=== PATIENT | male | born 1960 | race Caucasian/White ===

== ENCOUNTER 2016-06-13 14:03 | Inpatient (IN) ==
[2016-06-13] MEDS ORDERED: Ketorolac 30 MG/ML VIAL IV ONE (14:55)
[2016-06-13] MEDS ORDERED: Ondansetron 4 MG/2 ML VIAL IV ONE ×2 (14:55→16:20)
[2016-06-13] MEDS ORDERED: 0.9 % Sodium Chloride 1,000 ML IV SCH (15:00)
--- NOTE | 2016-06-13 15:35 | Emergency Department Note ---
Disposition Clinical Impression: Diverticulitis Qualifiers: Diverticulitis site: large intestine Diverticulitis bleeding: without bleeding Diverticulitis complication: with perforation Qualified Code(s): K57.20 - Diverticulitis of large intestine with perforation and abscess without bleeding Disposition: Admitted As Inpatient Condition: Fair Time of Disposition: 18:11 General Adult HPI - General Chief complaint: ED Urogenital-Male Stated complaint: possibe kidney stone Time Seen by Provider: 06/13/16 14:41 Source: patient Limitations: no limitations Nursing Notes Reviewed: Yes Vital Signs Reviewed: Yes - History of Present Illness HPI Narrative: Patient is a 56-year-old male who presents to [facility] ED with a chief complaint of right-sided flank and right lower quadrant abdominal pain that radiates into his groin. Also has some generalized tenderness. States the pain started last night and has weakness worsened throughout the day. Patient has had nausea and vomiting with this. Tactile fevers and chills. He has had prior kidney stones and diverticulitis. Has required prior surgery to remove the kidney stone several years ago. Past medical history of hypertension and hyperlipidemia. Patient takes lisinopril and fish oil. Onset (ago): day(s) Location: abdomen Radiation: flank Pain Severity: severe Pain Scale: 8 Quality: aching, sharp Consistency: constant, Worsening Improves with: nothing Worsens with: nothing Associated symptoms: Reports: fever/chills, malaise, nausea/vomiting. Denies: chest pain, cough, shortness of breath Treatments Prior to Arrival: none - Related Data Home Medications Medication Instructions Recorded Confirmed Lisinopril/Hydrochlorothiazide 1 each PO DAILY 03/25/15 06/13/16 [Zestoretic 20-25 mg Tablet] Amlodipine [Norvasc] 5 mg PO DAILY 06/13/16 06/13/16 Gabapentin [Neurontin] 300 mg PO BID 06/13/16 06/13/16 HYDROcodone/Acet 5/325 mg [[place] 1 tab PO TID 06/13/16 06/13/16 5-325 mg] Royal-3S/Dha/Epa/Fish Oil [Fish 1 each PO DAILY 06/13/16 06/13/16 Oil 1,200 mg Softgel] Psyllium Husk [Metamucil] 0.52 gm PO 2XW 06/13/16 06/13/16 Allergies Allergy/AdvReac Type Severity Reaction Status Date / Time No Known Allergies Allergy Verified 03/25/15 15:38 All systems ED: reviewed and negative except as stated. Past Medical History - Past Medical History Attestation: Yes The following information was validated with the patient. Source: patient Medical history: Reports: hypertension Surgical history: Reports: no surgical history Psychiatric history: Reports: no psych history - Social History Smoking Status: Heavy tobacco smoker Smokeless Tobacco Status: No Alcohol use: Reports: occasionally Drug use: Reports: none Physical Exam - General Limitations: no limitations General appearance: alert, in no apparent distress - Head Head exam: atraumatic, normocephalic, normal inspection - Eye Eye exam: Present: normal appearance, PERRL, EOMI - ENT ENT exam: normal exam, normal oropharynx, mucous membranes moist - Neck Neck exam: Present: normal inspection, full ROM, trachea midline - Chest Chest inspection: Present: normal inspection, symmetric chest wall rise - Respiratory Respiratory exam: Present: normal lung sounds bilaterally - Cardiovascular Cardiovascular exam: Present: normal rhythm, tachycardia - Abdominal Exam Abdominal exam: Present: distention, hyperactive bowel sounds Abdominal tenderness: Present: RLQ, diffuse, severe - Extremities Exam Extremities exam: Present: normal inspection, full ROM. Absent: tenderness, pedal edema - Back Exam Back exam: Present: normal inspection, full ROM. Absent: tenderness - Neurological Exam Neurological exam: Present: alert, oriented X3 - Psychiatric Psychiatric exam: Present: normal affect, normal mood - Skin Skin exam: Present: warm, dry, intact, normal color Course Course Narrative: Patient seen and examined. Right-sided abdominal pain. Patient is very tender all over. Concern for impacted stone versus appendicitis versus some other bowel pathology. IV fluids, pain medication, basic labs, CT abdomen and pelvis ordered. - Reevaluation(s) Reevaluation #1: CT shows acute sigmoid diverticulitis with perforation. Started ciprofloxacin. I spoke with surgery Dr. Jeffrey who has accepted patient for admission. Second liter of fluids ordered. Time: 16:43 Vital Signs Temperature 97.9 F 06/13/16 14:27 Pulse Rate 139 06/13/16 14:27 Respiratory Rate 22 06/13/16 14:27 Blood Pressure 154/92 06/13/16 14:27 O2 Sat by Pulse Oximetry 98 06/13/16 14:27 Temperature 97.9 F 06/13/16 14:27 Pulse Rate 133 06/13/16 18:08 Respiratory Rate 18 06/13/16 18:20 Blood Pressure 104/68 06/13/16 18:20 O2 Sat by Pulse Oximetry 96 06/13/16 18:08 Oxygen Delivery Oxygen Delivery Room Air Medical Decision Making - MDM Narrative Medical decision making narrative: I examined this patient and my medical decision-making was reviewed with the PARKING METER MECHANIC/PA/Advanced Practice Nurse/Resident Physician. I agree with the documented findings, disposition and treatment plan as described except to the extent set forth below. Patient was seen and evaluated by Dr. Fernández and myself , I agree with her evaluation and management plan, supervise care the patient's stay. Patient is a history of kidney stones and flank pain. He said the stones removed in the past with lithotripsy. No fevers here he is tachycardic however burning labs on him fluids given some for pain and nausea his CT of his abdomen and laboratory work. He is in agreement with this plan. He does not appear septic. 1613 hrs.: Radiology called over and there reading diverticulitis on this CAT scan with perforation. Her going to speech surgery waiting on his labs to come back and then will talk with surgery about antibiotic best choice. In their preference. Patient's agreement with the plan. Abdomen/Pelvis CT 06/13/16 15:36 IMPRESSION: Evidence acute sigmoid colonic diverticulitis with exuberant adjacent inflammatory changes as well as evidence of perforation and there is a small to moderate amount of extraluminal gas throughout the abdomen. Findings were discussed with Lisa Fernando at 4:09 pm on 06/13/2016. D/ / Tanika Rojo Cha, MD / Tanika Rojo Cha, MD Interpreting Provider: Tanika Rojo Cha, MD 1700 hrs.: Surgeries come down and seen the patient. Discussing going to surgery versus admission and then surgery that is available they will determine if a surgical suite is ready for him now or he will go the floor first after getting IV antibiotics and then to surgery. Patient's in agreement with this plan. Patient's critical care time x-ray separately billable procedures is 30 minutes. - Medical Records Medical records reviewed: Yes I reviewed the patient's medical records. - Lab Data Lab results reviewed: Yes I reviewed the patient's lab results. Result diagrams: 06/13/16 16:14 06/13/16 16:14 Lab Results 06/13/16 06/13/16 06/13/16 Range/Units 15:35 16:14 16:14 WBC 11.8 H (4.3-11.1) K/mcL RBC 5.76 H (4.19-5.50) M/mcL Hgb 17.0 H (12.9-16.9) g/dL Hct 49.3 (37.5-50.1) % MCV 85.6 (83.0-100.0) fL MCH 29.5 (28.0-33.3) pg MCHC 34.5 (31.6-35.5) g/dL RDW 12.5 (11.5-14.5) % Plt Count 153 (140-400) K/mcL MPV 9.9 (9.4-12.4) fL Immature Gran % 0.3 (0-4) % Seg Neutrophils % 89.9 % Lymphocytes % 3.6 % Monocytes % 5.9 % Eosinophils % 0.0 % Basophils % 0.3 % Neutrophils # 10.6 H (1.6-8.9) K/mcL Lymphocytes # 0.4 L (0.6-4.6) K/mcL Monocytes # 0.7 (0.0-1.3) K/mcL Eosinophils # 0.0 (0.0-0.6) K/mcL Basophils # 0.0 (0.0-0.2) K/mcL Immature Plt Fraction 5.1 (1.1-6.1) % PT (9.4-12.1) Seconds INR APTT (26.0-36.0) Seconds Sodium 136 (136-145) mEq/L Potassium 4.0 (3.5-4.5) mEq/L Chloride 105 (98-109) mEq/L Carbon Dioxide 19 (19-29) mEq/L BUN 13 (8-26) mg/dL Creatinine 0.85 (0.72-1.25) mg/dL Est GFR ( Amer) > 60 (> 60) Est GFR (Non-Af Amer) > 60 (> 60) BUN/Creatinine Ratio 15 (6-26) Glucose 93 (70-99) mg/dL POC Glucose 100 H (58-89) Calculated Osmolality 282 (280-300) Calcium 8.4 L (8.6-10.8) mg/dL Urine Color (Yellow) Urine Clarity (Clear) Urine pH (5.0-8.0) pH Units Ur Specific [place] (1.010-1.025) Urine Protein (Neg-Trace) mg/dL Urine Glucose (UA) (Normal) mg/dL Urine Ketones (Negative) mg/dL Urine Blood (Negative) Urine Nitrite (Negative) Urine Bilirubin (Negative) Urine Urobilinogen (Normal) mg/dL Ur Leukocyte Esterase (Negative) Urine Microscopic RBC (0-3) per hpf Urine Microscopic WBC (0-3) per hpf Ur Squamous Epith Cells (None-Few) per lpf Urine Bacteria (None-Few) per hpf Hyaline Casts (None-Few) per lpf Ur Culture Indicated? (NO) 06/13/16 06/13/16 Range/Units 16:14 16:32 WBC (4.3-11.1) K/mcL RBC (4.19-5.50) M/mcL Hgb (12.9-16.9) g/dL Hct (37.5-50.1) % MCV (83.0-100.0) fL MCH (28.0-33.3) pg MCHC (31.6-35.5) g/dL RDW (11.5-14.5) % Plt Count (140-400) K/mcL MPV (9.4-12.4) fL Immature Gran % (0-4) % Seg Neutrophils % % Lymphocytes % % Monocytes % % Eosinophils % % Basophils % % Neutrophils # (1.6-8.9) K/mcL Lymphocytes # (0.6-4.6) K/mcL Monocytes # (0.0-1.3) K/mcL Eosinophils # (0.0-0.6) K/mcL Basophils # (0.0-0.2) K/mcL Immature Plt Fraction (1.1-6.1) % PT 13.9 H (9.4-12.1) Seconds INR 1.3 APTT 32.3 (26.0-36.0) Seconds Sodium (136-145) mEq/L Potassium (3.5-4.5) mEq/L Chloride (98-109) mEq/L Carbon Dioxide (19-29) mEq/L BUN (8-26) mg/dL Creatinine (0.72-1.25) mg/dL Est GFR ( Amer) (> 60) Est GFR (Non-Af Amer) (> 60) BUN/Creatinine Ratio (6-26) Glucose (70-99) mg/dL POC Glucose (58-89) Calculated Osmolality (280-300) Calcium (8.6-10.8) mg/dL Urine Color Yellow (Yellow) Urine Clarity Clear (Clear) Urine pH 6.0 (5.0-8.0) pH Units Ur Specific [place] 1.021 (1.010-1.025) Urine Protein Negative (Neg-Trace) mg/dL Urine Glucose (UA) Normal (Normal) mg/dL Urine Ketones Negative (Negative) mg/dL Urine Blood Negative (Negative) Urine Nitrite Negative (Negative) Urine Bilirubin Negative (Negative) Urine Urobilinogen Normal (Normal) mg/dL Ur Leukocyte Esterase Small H (Negative) Urine Microscopic RBC 3-5 H (0-3) per hpf Urine Microscopic WBC 0-3 (0-3) per hpf Ur Squamous Epith Cells Many H (None-Few) per lpf Urine Bacteria None Seen (None-Few) per hpf Hyaline Casts Few (None-Few) per lpf Ur Culture Indicated? YES A (NO) - Radiology Data Radiology results reviewed: Yes I reviewed the patient's radiology results. Abdomen/Pelvis CT 06/13/16 15:36 IMPRESSION: Evidence acute sigmoid colonic diverticulitis with exuberant adjacent inflammatory changes as well as evidence of perforation and there is a small to moderate amount of extraluminal gas throughout the abdomen. Findings were discussed with Lisa Fernando at 4:09 pm on 06/13/2016. D/ / Tanika Rojo Cha, MD / Tanika Rojo Cha, MD Interpreting Provider: Tanika Rojo Cha, MD - EKG Data EKG #1 EKG attestation: Yes I reviewed and interpreted this EKG. EKG results narrative: EKG done at 1804 shows normal sinus tachycardia with a rate of [address] elevation or depression. Q-wave present in lead 3. Normal axis.
[2016-06-13] MEDS ORDERED: *HR* HYDROmorphone (PF) 1 MG/ML SYRINGE IV ONE (16:20)
[2016-06-13 16:24] LABS: Basophils % 0.3 %; Hematocrit 49.3 % (37.5-50.1); Immature Granulocytes % 0.3 % (0-4); Immature Platelets 5.1 % (1.1-6.1); Lymphocytes # 0.4 K/mcL (0.6-4.6); Lymphocytes % 3.6 %; Mean Corpuscular HGB Conc 34.5 g/dL (31.6-35.5); Mean Corpuscular Hemoglobin 29.5 pg (28.0-33.3); Mean Corpuscular Volume 85.6 fL (83.0-100.0); Mean Platelet Volume 9.9 fL (9.4-12.4); Monocytes # 0.7 K/mcL (0.0-1.3); Monocytes % 5.9 %; Neutrophils # 10.6 K/mcL (1.6-8.9); Platelet Count 153 K/mcL (140-400); Red Blood Count 5.76 M/mcL (4.19-5.50); Red Cell Distribution Width 12.5 % (11.5-14.5); Segmented Neutrophils % 89.9 %
[2016-06-13 16:34] LABS: INR 1.3; Prothrombin Time 13.9 Seconds (9.4-12.1)
[2016-06-13 16:37] LABS: Activated Partial Thrombo Time 32.3 Seconds (26.0-36.0)
[2016-06-13 16:42] LABS: BUN/Creatinine Ratio 15 (6-26); Blood Urea Nitrogen 13 mg/dL (8-26); Calcium 8.4 mg/dL (8.6-10.8); Carbon Dioxide 19 mEq/L (19-29); Chloride 105 mEq/L (98-109); Glucose 93 mg/dL (70-99); Osmolality,Calculated 282 (280-300); Sodium 136 mEq/L (136-145); eGFR For African Americans > 60 (> 60); eGFR For Non-African Americans > 60 (> 60)
[2016-06-13 16:53] LABS: Bilirubin,Urine Negative (Negative); Blood,Urine Negative (Negative); Clarity,Urine Clear (Clear); Color,Urine Yellow (Yellow); Glucose,Urine (UA) Normal (Normal); Ketones,Urine Negative (Negative); Leukocyte Esterase,Urine Small (Negative); Nitrite,Urine Negative (Negative); Protein,Urine Negative (Neg-Trace); Specific Gravity,Urine 1.021 (1.010-1.025); Urobilinogen,Urine Normal (Normal)
[2016-06-13 16:58] LABS: Bacteria,Urine None Seen per hpf (None-Few); Hyaline Casts,Urine Few per lpf (None-Few); Squamous Epithelial Cell,Urine Many per lpf (None-Few); WBC,Urine 0-3 per hpf (0-3)
--- NOTE | 2016-06-13 17:27 | General Surg History&Physical ---
<Harjeet Avalos - Last Filed: 06/13/16 18:17> Date of Encounter: 06/13/16 Time of Encounter: 17:20 Assessment and Plan (1) Perforated diverticulum Current Visit: Yes Status: Acute The assessment and plan as outlined above was discussed with the patient and/or family members who expressed understanding and agreement. All questions were answered. Pt. with acute onset severe abdominal pain in the mid epigastrum, RUQ, RLQ, with associated subjective fevers, nausea, vomiting (x3), chills, diaphoresis. Abd CT revealed: Evidence acute sigmoid colonic diverticulitis with exuberant adjacent inflammatory changes as well as evidence of perforation and there is a small to moderate amount of extraluminal gas throughout the abdomen. Patient was informed about his options, either go to the OR now for a colostomy or try antibiotics and bowel rest. He chose to not go to the Operating Room right now and try antibiotics and bowel rest initially to see if it will resolve. Plan -NPO -IVF -pain control -zosyn -GI and DVT prophylaxis (2) Hypertension Current Visit: No Status: Chronic Hx of HTN. Currently normotensive Hold home meds Qualifiers: Hypertension type: essential hypertension Qualified Code(s): I10 - Essential (primary) hypertension (3) Tobacco abuse Current Visit: No Status: Chronic He has a 60pk year smoking history. He quit 10 years ago, but recently began vaping. (4) DVT prophylaxis Current Visit: Yes Status: Acute Heparin subq 5000 BID History of Present Illness Chief complaint: abdominal pain HPI: Mr. Sanchez is a 56 year old male presented to the ED this afternoon with abdominal pain. He has got a past medical history of hypertension, hyperlipidemia, and nephrolithiasis, and diverticulitis. Last evening he began have sharp epigastric and right flank pain. The sharp pain lasted just a few moments, but continued intermittently worsening in duration and severity. When ambulating the pain was unbearable. The pain radiated down into suprapubic region. He rated the pain 8/10. He has had nausea since he 1st felt the abdominal pain last night and he has vomited 3 times. He was unable to sleep as the pain was too intense. He took 3 ibuprofen to help with the pain but it did not relieve his pain. This morning the pain was so bad his brought him to the ED. He also reports subjective fevers, emesis, nausea, diaphoresis, chills, and lightheadedness.'s last meal was last evening at approximately 5 PM. He has been unable to eat since then, and has no appetite. His last bowel movement was yesterday at 11 AM, which was solid. In the ED he was started on a normal saline infusion of 125 ml/hr, ciprofloxacin 400 mg IV piggyback, and pain medication. Past Med Surg Social Fam HX - Past Medical History Medical history: hypertension Psychiatric history: no psych history - Past Surgical History Surgical History: no surgical history - Social History Smoking Status: Heavy tobacco smoker Smokeless Tobacco Status: No Alcohol use: occasionally Drug use: none Medications and Allergies Lisinopril/Hydrochlorothiazide [Zestoretic 20-25 mg Tablet] 1 each PO DAILY [History] Amlodipine [Norvasc] 5 mg PO DAILY 06/13/16 [History] Gabapentin [Neurontin] 300 mg PO BID 06/13/16 [History] HYDROcodone/Acet 5/325 mg [[place] 5-325 mg] 1 tab PO TID 06/13/16 [History] [place]-3S/Dha/Epa/Fish Oil [Fish Oil 1,200 mg Softgel] 1 each PO DAILY 06/13/16 [ History] Psyllium Husk [Metamucil] 0.52 gm PO 2XW 06/13/16 [History] Allergies No Known Allergies Allergy (Verified 03/25/15 15:38) Review of Systems All systems PM: A 10-system review of systems was performed and is negative for pertinent findings except as documented above in the HPI. - Constitutional anorexia, chills, excessive sweating, fever(s) - EENT Nose, mouth and throat: dry mouth - Cardiovascular rapid heart rate - Respiratory no cough, no dyspnea, no hemoptysis - Gastrointestinal bloating, nausea, vomiting, no hematochezia, no melena - Neurological dizziness, weakness, no confusion, no loss of vision, no memory loss, no numbness, no paresthesias, no syncope General Surgery Exam Initial Vital Signs Temp Pulse Resp BP Pulse Ox 97.9 F 139 22 154/92 98 06/13/16 14:27 06/13/16 14:27 06/13/16 14:27 06/13/16 14:27 06/13/16 14:27 - General physical appearance well developed, well nourished, moderate distress, moderate pain - Eyes normal ocular movement - ENT dry mucosa - Respiratory normal expansion, normal respiratory effort, clear to auscultation - Cardiovascular Cardiovascular exam: Present: tachycardia, regular rhythm, no murmurs/rubs/ gallops - Abdomen Abdomen general surgery: Present: bowel sounds present, tender, guarding, rigid , peritoneal Abdominal Tenderness: Present: epigastic, RUQ, RLQ - Integumentary Integumentary general surgery: Present: warm and dry - Neurologic Present: CN 2-12 grossly intact, normal sensation - Psychiatric Psychiatric general surgery: Present: A&Ox3, appropriate Results - Labs 06/13/16 16:14 06/13/16 16:14 Abnormal lab results WBC 11.8 K/mcL (4.3-11.1) H 06/13/16 16:14 RBC 5.76 M/mcL (4.19-5.50) H 06/13/16 16:14 Hgb 17.0 g/dL (12.9-16.9) H 06/13/16 16:14 Neutrophils # 10.6 K/mcL (1.6-8.9) H 06/13/16 16:14 Lymphocytes # 0.4 K/mcL (0.6-4.6) L 06/13/16 16:14 PT 13.9 Seconds (9.4-12.1) H 06/13/16 16:14 POC Glucose 100 (58-89) H 06/13/16 15:35 Calcium 8.4 mg/dL (8.6-10.8) L 06/13/16 16:14 Ur Leukocyte Esterase Small (Negative) H 06/13/16 16:32 Urine Microscopic RBC 3-5 per hpf (0-3) H 06/13/16 16:32 Ur Squamous Epith Cells Many per lpf (None-Few) H 06/13/16 16:32 Ur Culture Indicated? YES (NO) A 06/13/16 16:32 Diabetes panel 06/13/16 Range/Units 16:14 Sodium 136 (136-145) mEq/L Potassium 4.0 (3.5-4.5) mEq/L Chloride 105 (98-109) mEq/L Carbon Dioxide 19 (19-29) mEq/L BUN 13 (8-26) mg/dL Creatinine 0.85 (0.72-1.25) mg/dL Glucose 93 (70-99) mg/dL Calcium 8.4 L (8.6-10.8) mg/dL Calcium panel 06/13/16 Range/Units 16:14 Calcium 8.4 L (8.6-10.8) mg/dL Pituitary panel 06/13/16 Range/Units 16:14 Sodium 136 (136-145) mEq/L Potassium 4.0 (3.5-4.5) mEq/L Chloride 105 (98-109) mEq/L Carbon Dioxide 19 (19-29) mEq/L BUN 13 (8-26) mg/dL Creatinine 0.85 (0.72-1.25) mg/dL Glucose 93 (70-99) mg/dL Calcium 8.4 L (8.6-10.8) mg/dL Adrenal panel 06/13/16 Range/Units 16:14 Sodium 136 (136-145) mEq/L Potassium 4.0 (3.5-4.5) mEq/L Chloride 105 (98-109) mEq/L Carbon Dioxide 19 (19-29) mEq/L BUN 13 (8-26) mg/dL Creatinine 0.85 (0.72-1.25) mg/dL Glucose 93 (70-99) mg/dL Calcium 8.4 L (8.6-10.8) mg/dL All other labs normal. <Loren Jeffrey - Last Filed: 06/13/16 18:45> Assessment and Plan (1) Perforation of sigmoid colon due to diverticulitis Current Visit: Yes Status: Acute discussed with patient and his that although he is having a decent amount of pain his abdomen is still soft when initially palpated. Discussed that if during this admission he would require surgery for diverticulitis he would undergo a titus, explained what that was. Discussed that we will try to get him to resolve this episode of diverticulitis without surgery with conservative measures. He will remain NPO, pain controlled with prn dilaudid, antiemetics if needed, serial abdominal exams, trend labs, antibtiotics. The assessment and plan as outlined above was discussed with the patient and/or family members who expressed understanding and agreement. All questions were answered. (2) Leukocytosis Current Visit: Yes Status: Acute received abx in ED, will treat with zosyn trend wbc The assessment and plan as outlined above was discussed with the patient and/or family members who expressed understanding and agreement. All questions were answered. Qualifiers: Leukocytosis type: unspecified Qualified Code(s): D72.829 - Elevated white blood cell count, unspecified (3) DVT prophylaxis Current Visit: Yes Status: Acute The assessment and plan as outlined above was discussed with the patient and/or family members who expressed understanding and agreement. All questions were answered. (4) Hypertension Current Visit: No Status: Chronic The assessment and plan as outlined above was discussed with the patient and/or family members who expressed understanding and agreement. All questions were answered. Qualifiers: Hypertension type: essential hypertension Qualified Code(s): I10 - Essential (primary) hypertension (5) Tobacco abuse Current Visit: No Status: Chronic The assessment and plan as outlined above was discussed with the patient and/or family members who expressed understanding and agreement. All questions were answered. (6) Tachycardia Current Visit: Yes Status: Acute The assessment and plan as outlined above was discussed with the patient and/or family members who expressed understanding and agreement. All questions were answered. will give another liter NS in ED continuous IVF's monitor (7) Dysuria Current Visit: Yes Status: Acute The assessment and plan as outlined above was discussed with the patient and/or family members who expressed understanding and agreement. All questions were answered. due to diverticulitis continue metz for strict I/os History of Present Illness HPI: Mr. Sanchez is a 56 year old male who began having right sided which radiated across the lower abdomen to the left side sharp stabbing abdominal pain yesterday evening around 10 PM. His last bowel movement was yesterday. He denies any diarrhea. The pain is progressively gotten worse which is what prompted him to present to the ER. Patient was previously had kidney stones and he thought that this is the same thing. He denies any fevers chills or night sweats. He has had nausea and vomiting. He is complaining of dysuria. CT scan shows perforated diverticulitis with a small amount of free intraperitoneal air. White count is 11.3. He is tachycardic in the 130s but has only received 1 L from the ER. Metz catheters has been placed Past Med Surg Social Fam HX - Past Medical History Source: patient Medical history: kidney stones, other ( chronic pain, hx colon polyps) - Past Surgical History Surgical History: other (lithotrypsy, colonscopy ~2 yrs ago) - Social History Smoking Status: Heavy tobacco smoker Smokeless Tobacco Status: No - Family History Grandmother History Unknown: Yes Review of Systems All systems PM: A 10-system review of systems was performed and is negative for pertinent findings except as documented above in the HPI. General Surgery Exam Initial Vital Signs Temp Pulse Resp BP Pulse Ox 97.9 F 139 22 154/92 98 06/13/16 14:27 06/13/16 14:27 06/13/16 14:27 06/13/16 14:27 06/13/16 14:27 - General physical appearance well developed, well nourished, moderate distress, moderate pain, obese - Eyes PERRL, normal ocular movement - ENT dry mucosa, atraumatic, normocephalic - Neck trachea midline - Respiratory normal expansion, clear to auscultation - Cardiovascular Cardiovascular exam: Present: tachycardia, regular rhythm, no murmurs/rubs/ gallops - Abdomen Abdomen general surgery: Present: soft, guarding (voluntary). Absent: bowel sounds present, rigid, peritoneal Abdominal Tenderness: Present: RLQ, LLQ - Incision Incision: Present: clean and dry, intact - Genitourinary Present: other (metz with dark urine) - Integumentary Integumentary general surgery: Present: warm and dry, no abnormal pigmentation. Absent: diaphoresis - Neurologic Present: CN 2-12 grossly intact - Psychiatric Psychiatric general surgery: Present: A&Ox3, appropriate, speech is normal Results - Labs 06/13/16 16:14 06/13/16 16:14 Short CBC 06/13/16 Range/Units 16:14 WBC 11.8 H (4.3-11.1) K/mcL Hgb 17.0 H (12.9-16.9) g/dL Hct 49.3 (37.5-50.1) % Plt Count 153 (140-400) K/mcL Neutrophils # 10.6 H (1.6-8.9) K/mcL BMP 06/13/16 Range/Units 16:14 Sodium 136 (136-145) mEq/L Potassium 4.0 (3.5-4.5) mEq/L Chloride 105 (98-109) mEq/L Carbon Dioxide 19 (19-29) mEq/L BUN 13 (8-26) mg/dL Creatinine 0.85 (0.72-1.25) mg/dL Glucose 93 (70-99) mg/dL Calcium 8.4 L (8.6-10.8) mg/dL Urine 06/13/16 Range/Units 16:32 Urine Color Yellow (Yellow) Urine Clarity Clear (Clear) Urine pH 6.0 (5.0-8.0) pH Units Ur Specific [place] 1.021 (1.010-1.025) Urine Protein Negative (Neg-Trace) mg/dL Urine Glucose (UA) Normal (Normal) mg/dL Vital Signs Temp Pulse Resp BP Pulse Ox 06/13/16 18:20 18 104/68 06/13/16 18:08 133 16 114/85 96 06/13/16 16:33 122 16 108/81 98 06/13/16 14:27 97.9 F 139 22 154/92 98 Intake and Output 06/13/16 06/13/16 06/13/16 07:59 15:59 23:59 Intake Total 1200 / 1200 Balance 1200 / 1200 Intake: IV Fluids 1200 / 1200 0.9 % Sodium Chloride 1, 1000 / 1000 000 ML @ 125 mls/hr IV CONT [facility] Rx#:[id number] Cipro 400 MG/200 ML 400 200 / 200 mg In 200 ml @ 200 mls/hr IVPB Q12HR [facility] Rx#: [id number] Other: Weight 99.79 kg Patient Weight 06/13/16 23:59 Weight 99.79 kg - Imaging CT scan - abdomen: report reviewed, image reviewed CT scan - pelvis: report reviewed, image reviewed - Attending Attestation I examined this patient and my medical decision-making was reviewed with the BLASTING MINER/PA/Advanced Practice Nurse/Resident Physician. I agree with the documented findings, disposition and treatment plan as described except to the extent set forth below.
[2016-06-13] MEDS ORDERED: Naloxone 0.4 MG/ML INJ IVP PRN ×2 (17:39→18:55)
[2016-06-13] MEDS ORDERED: Ondansetron 4 MG/2 ML VIAL IVP PRN (17:39)
[2016-06-13] MEDS ORDERED: *HR* HYDROmorphone (PF) 1 MG/ML SYRINGE IVP PRN ×2 (17:39→18:09)
[2016-06-13] MEDS ORDERED: Pantoprazole 40 MG VIAL IVP SCH (17:45)
[2016-06-13] MEDS ORDERED: 0.9 % Sodium Chloride 1,000 ML IVC ONE ×2 (18:01→22:20)
[2016-06-13] MEDS ORDERED: Acetaminophen IV 1,000 MG/100 ML INFUS..BTL IVPB PRN (18:15)
[2016-06-13] MEDS: 0.9 % Sodium Chloride 1,000 ML IV SCH (18:30)
[2016-06-13] MEDS ORDERED: *HR* Promethazine 25 MG/ML VIAL IVP PRN (18:55)
[2016-06-13] MEDS ORDERED: *HR* Metoprolol 5 MG/5 ML VIAL IVP PRN (18:55)
[2016-06-13] MEDS: *HR* HYDROmorphone (PF) 1 MG/ML SYRINGE IVP PRN (19:18)
[2016-06-13] MEDS: Acetaminophen IV 1,000 MG/100 ML INFUS..BTL IVPB PRN (20:25)
[2016-06-13] MEDS: Piperacillin/Tazobactam 3.375 GM in D5% in Water (Mini-Bag+) 100 ML IVPB SCH (20:51)
[2016-06-13] MEDS: Ipratropium/Albuterol Neb 3 ML IH SCH (21:08)
[2016-06-14] MEDS: *HR* HYDROmorphone (PF) 1 MG/ML SYRINGE IVP PRN ×7 (00:07→21:26)
[2016-06-14] MEDS: Ipratropium/Albuterol Neb 3 ML IH SCH ×4 (03:55→21:21)
[2016-06-14] MEDS ORDERED: 0.9 % Sodium Chloride 500 ML IVC ONE (03:58)
[2016-06-14 05:23] LABS: Basophils % 0.2 %; Hematocrit 43.1 % (37.5-50.1); Immature Granulocytes % 0.6 % (0-4); Lymphocytes # 1.3 K/mcL (0.6-4.6); Lymphocytes % 7.7 %; Mean Corpuscular HGB Conc 34.1 g/dL (31.6-35.5); Mean Corpuscular Hemoglobin 29.4 pg (28.0-33.3); Mean Corpuscular Volume 86.2 fL (83.0-100.0); Mean Platelet Volume 10.6 fL (9.4-12.4); Monocytes # 1.2 K/mcL (0.0-1.3); Monocytes % 6.6 %; Neutrophils # 14.7 K/mcL (1.6-8.9); Platelet Count 153 K/mcL (140-400); Red Cell Distribution Width 12.8 % (11.5-14.5); Segmented Neutrophils % 84.9 %
[2016-06-14 05:24] LABS: INR 1.5; Prothrombin Time 16.6 Seconds (9.4-12.1)
[2016-06-14] MEDS: Piperacillin/Tazobactam 3.375 GM in D5% in Water (Mini-Bag+) 100 ML IVPB SCH ×3 (05:33→21:49)
[2016-06-14 05:42] LABS: BUN/Creatinine Ratio 11 (6-26); Blood Urea Nitrogen 9 mg/dL (8-26); Calcium 7.6 mg/dL (8.6-10.8); Carbon Dioxide 20 mEq/L (19-29); Chloride 106 mEq/L (98-109); Glucose 83 mg/dL (70-99); Magnesium 1.7 mg/dL (1.6-2.6); Osmolality,Calculated 280 (280-300); Phosphorous 2.7 mg/dL (2.3-4.7); Potassium 3.8 mEq/L (3.5-4.5); Sodium 136 mEq/L (136-145); eGFR For African Americans > 60 (> 60); eGFR For Non-African Americans > 60 (> 60)
[2016-06-14] MEDS: *HR* Heparin 5,000 UNIT/ML VIAL SQ SCH ×2 (05:43→18:30)
[2016-06-14 05:48] LABS: Hemoglobin 14.7 g/dL (12.9-16.9)
[2016-06-14] MEDS ORDERED: *HR* Heparin 5,000 UNIT/ML VIAL SQ SCH (06:00)
[2016-06-14] MEDS: Pantoprazole 40 MG VIAL IVP SCH (09:01)
[2016-06-14] MEDS: 0.9 % Sodium Chloride 1,000 ML IV SCH (09:18)
--- NOTE | 2016-06-14 09:51 | General Surgery Progress Note ---
Date of Encounter: 06/14/16 Time of Encounter: 08:00 - Assessment and Plan (1) Perforation of sigmoid colon due to diverticulitis Current Visit: Yes Status: Acute discussed with patient that I am still very concerned about him, he still may require surgery in the future this admission, His HR has decreased with fluid hydration, his UOP is good. He states he think he feels a little better in ~12 hrs time frame but I explained not to expect any big changes for 24 to 36 hrs. No further nausea. His wbc did increase but no bandemia. will continue conservative management currently, may need to re-CT in a day or two, especially if no improvement. continue IVF hydration abx - zosyn pain control antiemetics metz for strict I/O's and dysuria serial abdominal exams (2) Leukocytosis Current Visit: Yes Status: Acute has increased overnight which isnt too unexpected, will monitor, continue Abx Qualifiers: Leukocytosis type: unspecified Qualified Code(s): D72.829 - Elevated white blood cell count, unspecified (3) DVT prophylaxis Current Visit: Yes Status: Acute heparin sq (4) Hypertension Current Visit: No Status: Chronic normotensive, continue to monitor, prn B lucía Qualifiers: Hypertension type: essential hypertension Qualified Code(s): I10 - Essential (primary) hypertension (5) Tobacco abuse Current Visit: No Status: Chronic (6) Tachycardia Current Visit: Yes Status: Acute had decreased with ivf hydration, continue to monitor (7) Dysuria Current Visit: Yes Status: Acute continue metz at this time Subjective Narrative: he is still complaining of RLQ pain, he was sleeping when I entered his room he denies any further nausea or emesis. He states he feels like the pain may be a little improved since last evening. He had flatus this am but no bm Objective Vital Signs - Last 8 Hours Temp Pulse Resp BP Pulse Ox 06/14/16 07:17 99.0 F 115 17 137/86 94 L 06/14/16 03:56 18 98 06/14/16 03:46 98.5 F 120 18 134/83 94 L Intake and Output 06/13/16 06/14/16 06/14/16 23:59 07:59 15:59 Intake Total 698 / 1898 2001 Output Total 300 / 300 975 / 975 Balance 398 / 1598 1027 / 1027 Intake: IV Fluids 698 / 698 2001 / 2001 0.9 % Sodium Chloride 1, 598 / 598 402 / 402 000 ML @ 140 mls/hr IV CONT [facility] Rx#:[id number] 0.9 % Sodium Chloride 1, 1000 / 1000 000 ML @ 3750 mls/hr IVC .Q16M ONE Rx#:[id number] 0.9 % Sodium Chloride 500 500 / 500 ML @ 1875 mls/hr IVC . Q16M ONE Rx#:[id number] Ofirmev 1,000 mg In 100 100 / 100 ml @ 400 mls/hr IVPB Q8HR PRN Rx#:[id number] Zosyn 3.375 GM In 100 / 100 Dextrose 5% (Minibag+) 100 ML 100 ML @ 25 mls/hr IVPB Q8H [facility] Rx#: [id number] Oral 0 / 0 0 / 0 Output: Catheter 300 / 300 975 / 975 Other: Meal NPO Blood Glucose* 88 - General physical appearance well developed, well nourished, moderate distress - Eyes PERRL, normal ocular movement - ENT dry mucosa, atraumatic, normocephalic - Neck Neck exam: trachea midline - Respiratory normal expansion, clear to percussion - Cardiovascular Cardiovascular exam: Present: tachycardia - Abdomen Abdomen: Present: soft (soft LLQ to light palpation, does voluntary guard to deep, most tenderness is RLQ, tenderness LLQ a little less than last night), distended, tender, guarding (voluntary). Absent: bowel sounds present, rigid, peritoneal Abdominal Tenderness: RLQ - Genitourinary other (metz with clear yellow urine) - Integumentary no rash, no growths - Neurologic CN 2-12 grossly intact - Musculoskeletal normal posture - Psychiatric oriented to time, oriented to person, oriented to place, speech is normal - Labs 06/14/16 04:14 06/14/16 04:14 Vital Signs Temp Pulse Resp BP Pulse Ox 06/14/16 07:17 99.0 F 115 17 137/86 94 L 06/14/16 03:56 18 98 06/14/16 03:46 98.5 F 120 18 134/83 94 L 06/14/16 01:07 98.2 F 124 18 118/79 93 L 06/13/16 21:10 18 92 L 06/13/16 19:58 99.0 F 132 18 112/74 93 L 06/13/16 18:20 18 104/68 06/13/16 18:08 133 16 114/85 96 06/13/16 16:33 122 16 108/81 98 06/13/16 14:27 97.9 F 139 22 154/92 98 Intake and Output 06/13/16 06/14/16 06/14/16 23:59 07:59 15:59 Intake Total 189 / 1892001 Output Total 300 / 300 975 / 975 Balance 1598 / 1598 1027 / 1027 Intake: IV Fluids 1897 / 1892001 0.9 % Sodium Chloride 1, 1598 / 1598 402 / 402 000 ML @ 140 mls/hr IV CONT [facility] Rx#:[id number] 0.9 % Sodium Chloride 1, 1000 / 1000 000 ML @ 3750 mls/hr IVC .Q16M ONE Rx#:[id number] 0.9 % Sodium Chloride 500 500 / 500 ML @ 1875 mls/hr IVC . Q16M ONE Rx#:[id number] Ofirmev 1,000 mg In 100 100 / 100 ml @ 400 mls/hr IVPB Q8HR PRN Rx#:[id number] Cipro 400 MG/200 ML 400 200 / 200 mg In 200 ml @ 200 mls/hr IVPB Q12HR [facility] Rx#: [id number] Zosyn 3.375 GM In 100 / 100 Dextrose 5% (Minibag+) 100 ML 100 ML @ 25 mls/hr IVPB Q8H [facility] Rx#: [id number] Oral 0 / 0 0 / 0 Output: Catheter 300 / 300 975 / 975 Other: Meal NPO Blood Glucose* 88 Short CBC 06/14/16 06/13/16 Range/Units 04:14 16:14 WBC 17.3 H 11.8 H (4.3-11.1) K/mcL Hgb 14.7 D 17.0 H (12.9-16.9) g/dL Hct 43.1 49.3 (37.5-50.1) % Plt Count 153 153 (140-400) K/mcL Neutrophils # 14.7 H 10.6 H (1.6-8.9) K/mcL BMP 06/14/16 06/13/16 Range/Units 04:14 16:14 Sodium 136 136 (136-145) mEq/L Potassium 3.8 4.0 (3.5-4.5) mEq/L Chloride 106 105 (98-109) mEq/L Carbon Dioxide 20 19 (19-29) mEq/L BUN 9 13 (8-26) mg/dL Creatinine 0.80 0.85 (0.72-1.25) mg/dL Glucose 83 93 (70-99) mg/dL Calcium 7.6 L 8.4 L (8.6-10.8) mg/dL Urine 06/13/16 Range/Units 16:32 Urine Color Yellow (Yellow) Urine Clarity Clear (Clear) Urine pH 6.0 (5.0-8.0) pH Units Ur Specific [place] 1.021 (1.010-1.025) Urine Protein Negative (Neg-Trace) mg/dL Urine Glucose (UA) Normal (Normal) mg/dL Consult Discharge Plan - Plan Referrals: Leslye Alves [Primary Care Provider] -
--- NOTE | 2016-06-14 15:49 | Electrocardiograph Report ---
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
[2016-06-14] MEDS ORDERED: Piperacillin/Tazobactam 3.375 GM in D5% in Water (Mini-Bag+) 100 ML IVPB SCH (18:06)
[2016-06-14] MEDS: Acetaminophen IV 1,000 MG/100 ML INFUS..BTL IVPB PRN (21:26)
[2016-06-15] MEDS: *HR* HYDROmorphone (PF) 1 MG/ML SYRINGE IVP PRN ×7 (00:14→22:43)
[2016-06-15] MEDS: 0.9 % Sodium Chloride 1,000 ML IV SCH ×2 (00:17→18:54)
[2016-06-15] MEDS: Ipratropium/Albuterol Neb 3 ML IH SCH ×4 (03:55→22:39)
[2016-06-15] MEDS: Piperacillin/Tazobactam 3.375 GM in D5% in Water (Mini-Bag+) 100 ML IVPB SCH ×3 (04:03→20:07)
[2016-06-15 06:04] LABS: Basophils % 0.1 %; Hematocrit 42.7 % (37.5-50.1); Hemoglobin 14.6 g/dL (12.9-16.9); Immature Granulocytes % 0.5 % (0-4); Lymphocytes # 0.8 K/mcL (0.6-4.6); Lymphocytes % 5.3 %; Mean Corpuscular HGB Conc 34.2 g/dL (31.6-35.5); Mean Corpuscular Hemoglobin 29.4 pg (28.0-33.3); Mean Corpuscular Volume 86.1 fL (83.0-100.0); Mean Platelet Volume 10.6 fL (9.4-12.4); Monocytes # 0.9 K/mcL (0.0-1.3); Neutrophils # 13.3 K/mcL (1.6-8.9); Platelet Count 145 K/mcL (140-400); Red Blood Count 4.96 M/mcL (4.19-5.50); Red Cell Distribution Width 12.7 % (11.5-14.5); Segmented Neutrophils % 88.1 %
[2016-06-15 06:22] LABS: BUN/Creatinine Ratio 9 (6-26); Blood Urea Nitrogen 7 mg/dL (8-26); Calcium 7.7 mg/dL (8.6-10.8); Carbon Dioxide 20 mEq/L (19-29); Chloride 108 mEq/L (98-109); Glucose 113 mg/dL (70-99); Magnesium 1.6 mg/dL (1.6-2.6); Osmolality,Calculated 283 (280-300); Phosphorous 1.7 mg/dL (2.3-4.7); Potassium 3.7 mEq/L (3.5-4.5); Sodium 137 mEq/L (136-145); eGFR For African Americans > 60 (> 60); eGFR For Non-African Americans > 60 (> 60)
[2016-06-15] MEDS: *HR* Heparin 5,000 UNIT/ML VIAL SQ SCH ×2 (06:29→16:17)
--- NOTE | 2016-06-15 07:42 | General Surgery Progress Note ---
Date of Encounter: 06/15/16 Time of Encounter: 07:40 - Assessment and Plan (1) Perforation of sigmoid colon due to diverticulitis Current Visit: Yes Status: Acute patient feels better today, abdomen is softer and with less pain, wbc decreased HR has increased, will monitor he may need repeat CT today or tomorrow continue Abx, zosyn continue metz for strict I/O's and dysuria serial abdominal exams increased pain medication (2) Leukocytosis Current Visit: Yes Status: Acute has decreased last 24 hrs, will monitor, continue Abx Qualifiers: Leukocytosis type: unspecified Qualified Code(s): D72.829 - Elevated white blood cell count, unspecified (3) DVT prophylaxis Current Visit: Yes Status: Acute heparin sq (4) Hypertension Current Visit: No Status: Chronic normotensive, continue to monitor, scheduled B lucía Qualifiers: Hypertension type: essential hypertension Qualified Code(s): I10 - Essential (primary) hypertension (5) Tobacco abuse Current Visit: No Status: Chronic (6) Tachycardia Current Visit: Yes Status: Acute has increased may be due to neck and abdomen pain and cough as those are pts complaints, good uop, abdomen exam improved, monitor (7) Dysuria Current Visit: Yes Status: Acute continue metz at this time (8) Cough Current Visit: Yes Status: Acute has been on scheduled aerosols, will add mucomyst Subjective Narrative: patient states he feels better from an abdominal standpoint, still a little distended but less abdominal pain, states he is better able to push on his abdomen, still most tender RLQ no nausea passing flatus no bm complaining of cough which is making him feel bad complains of his chronic neck pain and asks if can take home po pain meds for this Objective Vital Signs - Last 8 Hours Temp Pulse Resp BP Pulse Ox 06/15/16 07:15 98.0 F 132 16 137/81 90 L 06/15/16 04:45 98.2 F 125 16 129/83 93 L 06/15/16 03:56 18 95 Intake and Output 06/14/16 06/14/16 06/15/16 15:59 23:59 07:59 Intake Total 100 / 100 618 / 618 1198 / 1198 Output Total 825 / 825 1000 / 1000 900 / 900 Balance -725 / -725 -382 / -382 298 / 298 Intake: IV Fluids 100 / 100 618 / 618 1198 / 1198 0.9 % Sodium Chloride 1, 418 / 418 1098 / 1098 000 ML @ 140 mls/hr IV CONT [facility] Rx#:[id number] Ofirmev 1,000 mg In 100 100 / 100 ml @ 400 mls/hr IVPB Q8HR PRN Rx#:[id number] Zosyn 3.375 GM In 100 / 100 100 / 100 100 / 100 Dextrose 5% (Minibag+) 100 ML 100 ML @ 25 mls/hr IVPB Q8H [facility] Rx#: [id number] Oral 0 / 0 0 / 0 0 / 0 Output: Urine 650 / 650 300 / 300 Urethral (Metz) 350 / 350 300 / 300 Catheter 825 / 825 350 / 350 600 / 600 Other: Meal NPO NPO Percent of Meal Consumed 0% # Bowel Movements 0 Weight 100.9 kg Blood Glucose* 96 102 104 Patient Weight 06/15/16 23:59 Weight 100.9 kg - General physical appearance well nourished, no distress - Eyes PERRL, normal ocular movement - ENT dry mucosa, atraumatic, normocephalic - Neck Neck exam: trachea midline - Respiratory normal expansion, normal respiratory effort, clear to percussion - Cardiovascular Cardiovascular exam: Present: tachycardia, regular rhythm, no murmurs/rubs/ gallops - Abdomen Abdomen: Present: bowel sounds present, soft, non tender (but less so than yesterday, no rebound or guarding, slightly distended, overall improvement) - Genitourinary other (metz with clear yellow urine) - Integumentary no growths - Neurologic CN 2-12 grossly intact - Musculoskeletal normal posture - Psychiatric oriented to time, oriented to person, oriented to place, speech is normal - Labs 06/15/16 05:08 06/15/16 05:08 Short CBC 06/15/16 Range/Units 05:08 WBC 15.1 H (4.3-11.1) K/mcL Hgb 14.6 (12.9-16.9) g/dL Hct 42.7 (37.5-50.1) % Plt Count 145 (140-400) K/mcL Neutrophils # 13.3 H (1.6-8.9) K/mcL BMP 06/15/16 Range/Units 05:08 Sodium 137 (136-145) mEq/L Potassium 3.7 (3.5-4.5) mEq/L Chloride 108 (98-109) mEq/L Carbon Dioxide 20 (19-29) mEq/L BUN 7 L (8-26) mg/dL Creatinine 0.74 (0.72-1.25) mg/dL Glucose 113 H (70-99) mg/dL Calcium 7.7 L (8.6-10.8) mg/dL Vital Signs Temp Pulse Resp BP Pulse Ox 06/15/16 07:15 98.0 F 132 16 137/81 90 L 06/15/16 04:45 98.2 F 125 16 129/83 93 L 06/15/16 03:56 18 95 06/14/16 23:30 99.0 F 112 16 127/87 92 L 06/14/16 21:22 18 93 L 06/14/16 20:58 100.3 F H 136 16 128/87 93 L 06/14/16 16:36 18 90 L 06/14/16 15:34 100.0 F H 100 16 155/88 92 L 06/14/16 11:31 98.5 F 107 17 144/87 94 L 06/14/16 10:49 20 93 L Intake and Output 06/14/16 06/14/16 06/15/16 15:59 23:59 07:59 Intake Total 100 / 100 618 / 618 1198 / 1198 Output Total 825 / 825 1000 / 1000 900 / 900 Balance -725 / -725 -382 / -382 298 / 298 Intake: IV Fluids 100 / 100 618 / 618 1198 / 1198 0.9 % Sodium Chloride 1, 418 / 418 1098 / 1098 000 ML @ 140 mls/hr IV CONT [facility] Rx#:[id number] Ofirmev 1,000 mg In 100 100 / 100 ml @ 400 mls/hr IVPB Q8HR PRN Rx#:[id number] Zosyn 3.375 GM In 100 / 100 100 / 100 100 / 100 Dextrose 5% (Minibag+) 100 ML 100 ML @ 25 mls/hr IVPB Q8H [facility] Rx#: [id number] Oral 0 / 0 0 / 0 0 / 0 Output: Urine 650 / 650 300 / 300 Urethral (Metz) 350 / 350 300 / 300 Catheter 825 / 825 350 / 350 600 / 600 Other: Meal NPO NPO Percent of Meal Consumed 0% # Bowel Movements 0 Weight 100.9 kg Blood Glucose* 96 102 104 Patient Weight 06/15/16 23:59 Weight 100.9 kg Consult Discharge Plan - Plan Referrals: Leslye Alves [Primary Care Provider] -
[2016-06-15] MEDS: Pantoprazole 40 MG VIAL IVP SCH (08:57)
[2016-06-15] MEDS: Acetylcysteine 10% 2 ML INHSOL IH SCH ×3 (10:31→22:39)
--- NOTE | 2016-06-15 14:37 | Arterial Study Report ---
LE Arterial Physiologic Study Patient Name:Kenney Sanchez Order Number:[id number] Procedure Date:06/14/2016 Date:1960Age:56 yrs Gender:Male Lt BP:146 / mmHg Rt.BP:141 / mmHgHeart Rate: Location:[facility] Room #: 3A33 Director Of Search Engine Marketing:Ann Marie Martins Referring MD:Harjeet Avalos DO optical sales associate:Leslye Alves, MEDICAL BILLER CODER Reading MD:Zhen Leal MD Primary Indications:Claudication Impressions: 1) Bilateral lower extremities waveform demonstrates normal hemodynamics. 2) bilateral Ankle Brachial Index is normal. 3) Overall Impression: Arterial hemodynamics are well maintained at rest. Recommendations: After imaging the patient returned to their room. Findings LE Arterial Physiologic Exam: Segmental Pressures: Right: The right posterior tibial pressure is 172 mmHg with an index of 1.18. The right dorsalis pedis pressure is 172 mmHg with an index of 1.18. Left: The left posterior tibial pressure is 165 mmHg with an index of 1.13. The left dorsalis pedis pressure is 168 mmHg with an index of 1.15. PVR: Right: The PVR waveforms are normal in the right ankle. Left: The PVR waveforms are normal in the left ankle. Prior Study: No prior study available for comparison. Segmental Pressures Side Location Pressure Index Result Right Posterior Tibial 172 1.18 Right Dorsalis Pedis 172 1.18 Left Posterior Tibial 165 1.13 Left Dorsalis Pedis 168 1.15 Ankle Brachial Index Right Systolic Diastolic JOSE MARTIN Brachial 141 1.18 Dorsalis Pedis 172 1.18 Posterior Tibial 172 1.18 Left Systolic Diastolic JOSE MARTIN Brachial 146 1.15 Dorsalis Pedis 168 1.15 Posterior Tibial 165 1.13 Updated by Zhen Leal MD on 06/15/2016 2:33:07 PM with Status of Final electronically signed on 06/15/2016 2:33:17 PM with status of Final
[2016-06-15] MEDS: GuaiFENesin/Codeine Oral Soln 5 ML UDC PO SCH ×3 (16:17→23:38)
[2016-06-15] MEDS: Acetaminophen IV 1,000 MG/100 ML INFUS..BTL IVPB PRN (23:38)
[2016-06-16] MEDS: *HR* HYDROmorphone (PF) 1 MG/ML SYRINGE IVP PRN ×7 (01:07→21:05)
[2016-06-16] MEDS: Ipratropium/Albuterol Neb 3 ML IH SCH ×4 (04:30→21:13)
[2016-06-16] MEDS: Acetylcysteine 10% 2 ML INHSOL IH SCH ×4 (04:30→21:13)
[2016-06-16 05:56] LABS: Basophils % 0.2 %; Eosinophils % 0.2 %; Hematocrit 39.5 % (37.5-50.1); Hemoglobin 13.8 g/dL (12.9-16.9); Immature Granulocytes % 0.8 % (0-4); Lymphocytes % 7.5 %; Mean Corpuscular HGB Conc 34.9 g/dL (31.6-35.5); Mean Corpuscular Hemoglobin 30.1 pg (28.0-33.3); Mean Corpuscular Volume 86.2 fL (83.0-100.0); Mean Platelet Volume 10.8 fL (9.4-12.4); Neutrophils # 10.9 K/mcL (1.6-8.9); Platelet Count 155 K/mcL (140-400); Red Blood Count 4.58 M/mcL (4.19-5.50); Red Cell Distribution Width 12.7 % (11.5-14.5); Segmented Neutrophils % 83.3 %
[2016-06-16 06:06] LABS: BUN/Creatinine Ratio 11 (6-26); Blood Urea Nitrogen 8 mg/dL (8-26); Calcium 7.7 mg/dL (8.6-10.8); Carbon Dioxide 21 mEq/L (19-29); Chloride 109 mEq/L (98-109); Glucose 101 mg/dL (70-99); Magnesium 1.6 mg/dL (1.6-2.6); Osmolality,Calculated 284 (280-300); Phosphorous 2.2 mg/dL (2.3-4.7); Potassium 3.7 mEq/L (3.5-4.5); Sodium 138 mEq/L (136-145); eGFR For African Americans > 60 (> 60); eGFR For Non-African Americans > 60 (> 60)
[2016-06-16] MEDS: GuaiFENesin/Codeine Oral Soln 5 ML UDC PO SCH ×4 (06:28→23:23)
[2016-06-16] MEDS: Piperacillin/Tazobactam 3.375 GM in D5% in Water (Mini-Bag+) 100 ML IVPB SCH ×3 (06:28→20:59)
[2016-06-16] MEDS: *HR* Heparin 5,000 UNIT/ML VIAL SQ SCH ×2 (06:29→18:00)
[2016-06-16] MEDS: Pantoprazole 40 MG VIAL IVP SCH (08:46)
[2016-06-16] MEDS: Ondansetron 4 MG/2 ML VIAL IVP PRN ×2 (10:38→23:42)
[2016-06-16] MEDS: 0.9 % Sodium Chloride 1,000 ML IV SCH ×2 (10:39→18:08)
--- NOTE | 2016-06-16 11:23 | General Surgery Progress Note ---
Date of Encounter: 06/16/16 Time of Encounter: 11:19 - Assessment and Plan (1) Perforation of sigmoid colon due to diverticulitis Current Visit: Yes Status: Acute patient continues to show improvement in symptoms, but is still very tender. Abdomen is soft. WBC: trending down 17.3-->15.1--> 13.0 (today) Afebrile HR has increased, will monitor. Metoprolol PRN Will have a repeat CT abd/pelvis w/ oral contrast today continue Abx, zosyn continue metz for strict I/O's and dysuria serial abdominal exams Pain control (2) Hypertension Current Visit: No Status: Chronic normotensive, continue to monitor, PRN B lucía Qualifiers: Hypertension type: essential hypertension Qualified Code(s): I10 - Essential (primary) hypertension (3) Tobacco abuse Current Visit: No Status: Chronic (4) DVT prophylaxis Current Visit: Yes Status: Acute Heparin subq 5000 BID (5) Leukocytosis Current Visit: Yes Status: Acute WBC: trending down 17.3-->15.1--> 13.0 (today) Qualifiers: Leukocytosis type: unspecified Qualified Code(s): D72.829 - Elevated white blood cell count, unspecified (6) Tachycardia Current Visit: Yes Status: Acute BB prn (7) Dysuria Current Visit: Yes Status: Acute continue metz (8) Cough Current Visit: Yes Status: Acute bronchodilators mucomyst Subjective Patient reports: feels better, still having pain, pain is less, flatus, no bowel movement, afebrile Narrative: Patient seen and examined at bedside with Dr. Leal. Pt reports having less abdominal tenderness/pain, but still a moderate amount of pain primarily in the RLQ. He reports having flatus but denies BM. Continues to be mildly distended. Denies nausea/vomiting. Objective Vital Signs - Last 8 Hours Temp Pulse Resp BP Pulse Ox 06/16/16 10:17 16 94 L 06/16/16 08:30 98.0 F 114 14 109/67 94 L 06/16/16 07:56 93 L 06/16/16 05:26 98.9 F 105 22 124/85 93 L Intake and Output 06/15/16 06/16/16 06/16/16 23:59 07:59 15:59 Intake Total 100 / 100 100 / 100 1200 / 1200 Output Total 750 / 750 300 / 300 Balance 100 / 100 -650 / -650 900 / 900 Intake: IV Fluids 100 / 100 100 / 100 1200 / 1200 0.9 % Sodium Chloride 1, 1000 / 1000 000 ML @ 140 mls/hr IV CONT [facility] Rx#:[id number] Ofirmev 1,000 mg In 100 100 / 100 ml @ 400 mls/hr IVPB Q8HR PRN Rx#:[id number] Zosyn 3.375 GM In 100 / 100 100 / 100 100 / 100 Dextrose 5% (Minibag+) 100 ML 100 ML @ 25 mls/hr IVPB Q8H [facility] Rx#: [id number] Oral 0 / 0 Output: Catheter 750 / 750 300 / 300 Other: Meal NPO NPO Percent of Meal Consumed 0% Blood Glucose* 94 100 115 - Additional Exam - General physical appearance well nourished, no distress - Eyes PERRL, normal ocular movement - ENT dry mucosa, atraumatic, normocephalic - Neck Neck exam: trachea midline - Respiratory normal expansion, normal respiratory effort, clear to percussion - Cardiovascular Cardiovascular exam: Present: tachycardia, regular rhythm, no murmurs/rubs/ gallops - Abdomen Abdomen: Present: bowel sounds present, soft, non tender (but less so than yesterday, no rebound or guarding, slightly distended, overall improvement) - Genitourinary other (metz with clear yellow urine) - Integumentary no growths - Neurologic CN 2-12 grossly intact - Musculoskeletal normal posture - Psychiatric oriented to time, oriented to person, oriented to place, speech is normal - Labs 06/16/16 04:37 06/16/16 04:30 Diabetes panel 06/16/16 Range/Units 04:30 Sodium 138 (136-145) mEq/L Potassium 3.7 (3.5-4.5) mEq/L Chloride 109 (98-109) mEq/L Carbon Dioxide 21 (19-29) mEq/L BUN 8 (8-26) mg/dL Creatinine 0.70 L (0.72-1.25) mg/dL Glucose 101 H (70-99) mg/dL Calcium 7.7 L (8.6-10.8) mg/dL Calcium panel 06/16/16 Range/Units 04:30 Calcium 7.7 L (8.6-10.8) mg/dL Phosphorus 2.2 L (2.3-4.7) mg/dL Pituitary panel 06/16/16 Range/Units 04:30 Sodium 138 (136-145) mEq/L Potassium 3.7 (3.5-4.5) mEq/L Chloride 109 (98-109) mEq/L Carbon Dioxide 21 (19-29) mEq/L BUN 8 (8-26) mg/dL Creatinine 0.70 L (0.72-1.25) mg/dL Glucose 101 H (70-99) mg/dL Calcium 7.7 L (8.6-10.8) mg/dL Adrenal panel 06/16/16 Range/Units 04:30 Sodium 138 (136-145) mEq/L Potassium 3.7 (3.5-4.5) mEq/L Chloride 109 (98-109) mEq/L Carbon Dioxide 21 (19-29) mEq/L BUN 8 (8-26) mg/dL Creatinine 0.70 L (0.72-1.25) mg/dL Glucose 101 H (70-99) mg/dL Calcium 7.7 L (8.6-10.8) mg/dL Consult Discharge Plan - Plan Referrals: Leslye Alves [Primary Care Provider] - - Attending Attestation I examined this patient and my medical decision-making was reviewed with the QUARRY SUPERVISOR/PA/Advanced Practice Nurse/Resident Physician. I agree with the documented findings, disposition and treatment plan as described except to the extent set forth below. The patient is seen on morning rounds with the resident. He continues to have RLQ pain and guarding. We will repeat the CT scan to try and identify any abcesses or grade the progress of his treatment. CT drainage may be necessary if abcesses have formed Zhen Leal MD FACS
--- NOTE | 2016-06-16 12:47 | Electrocardiograph Report ---
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
[2016-06-17] MEDS: *HR* HYDROmorphone (PF) 1 MG/ML SYRINGE IVP PRN ×4 (01:28→12:50)
[2016-06-17] MEDS: 0.9 % Sodium Chloride 1,000 ML IV SCH ×2 (01:36→08:50)
[2016-06-17] MEDS: Ipratropium/Albuterol Neb 3 ML IH SCH ×4 (04:07→22:18)
[2016-06-17] MEDS: Acetylcysteine 10% 2 ML INHSOL IH SCH ×4 (04:07→22:19)
[2016-06-17] MEDS: Piperacillin/Tazobactam 3.375 GM in D5% in Water (Mini-Bag+) 100 ML IVPB SCH ×3 (05:14→20:41)
[2016-06-17] MEDS: *HR* Heparin 5,000 UNIT/ML VIAL SQ SCH ×2 (05:16→17:08)
[2016-06-17] MEDS: GuaiFENesin/Codeine Oral Soln 5 ML UDC PO SCH ×3 (05:16→17:10)
[2016-06-17 05:42] LABS: Basophils % 0.2 %; Eosinophils # 0.1 K/mcL (0.0-0.6); Eosinophils % 0.9 %; Immature Granulocytes % 0.5 % (0-4); Lymphocytes # 1.2 K/mcL (0.6-4.6); Lymphocytes % 11.5 %; Mean Corpuscular HGB Conc 34.2 g/dL (31.6-35.5); Mean Corpuscular Hemoglobin 29.1 pg (28.0-33.3); Mean Platelet Volume 10.2 fL (9.4-12.4); Neutrophils # 7.9 K/mcL (1.6-8.9); Platelet Count 174 K/mcL (140-400); Red Blood Count 4.47 M/mcL (4.19-5.50); Red Cell Distribution Width 12.7 % (11.5-14.5); Segmented Neutrophils % 76.9 %
[2016-06-17] MEDS: Pantoprazole 40 MG VIAL IVP SCH (08:38)
[2016-06-17] MEDS: Ondansetron 4 MG/2 ML VIAL IVP PRN ×2 (08:38→13:47)
[2016-06-17] MEDS ORDERED: 0.9 % Sodium Chloride 1,000 ML IV SCH ×2 (11:31→20:45)
[2016-06-17] MEDS ORDERED: Lidocaine -MPF 1% 5 ML AMPUL INFILT ONE (11:33)
--- NOTE | 2016-06-17 11:34 | General Surgery Progress Note ---
Date of Encounter: 06/17/16 Time of Encounter: 17:00 - Assessment and Plan (1) Perforation of sigmoid colon due to diverticulitis Current Visit: Yes Status: Acute Continue with conservative therapy at this time including: Bowel rest IV antibiotics- Zosyn CT of abdomen shows intra-abdomen abscesses- IR consulted for drainage today IV fluids Java Lead consult for start of TPN today- total fluid rate 125ml/hour (MIV + TPN ) PICC line placement Supportive care/pain control Serial abdominal exams Repeat am labs (2) Hypertension Current Visit: No Status: Chronic Stable Continue metoprolol and hydralazine prn Qualifiers: Hypertension type: essential hypertension Qualified Code(s): I10 - Essential (primary) hypertension (3) Tachycardia Current Visit: Yes Status: Acute Improved (4) Cough Current Visit: Yes Status: Acute Improved Continue mucomust and aerosols (5) Leukocytosis Current Visit: Yes Status: Resolved Improving 13>10.2 Continue IV antibiotics- Zosyn Repeat am labs Qualifiers: Leukocytosis type: unspecified Qualified Code(s): D72.829 - Elevated white blood cell count, unspecified (6) Tobacco abuse Current Visit: No Status: Chronic Smoking cessation education Nicotine patch (7) DVT prophylaxis Current Visit: Yes Status: Acute Continue heparin 5,000 units SQ twice daily for DVT prophylaxis Subjective Patient reports: no new complaints, still having pain, pain is less, flatus, no bowel movement, afebrile Narrative: Patient states that he still has the right lower quadrant abdominal pain but it is somewhat better today. He has passed a little bit of flatus and felt like he needed to have a bowel movement but nothing resulted. He is having nausea and began vomiting as we left his room. Objective Vital Signs - Last 8 Hours Temp Pulse Resp BP Pulse Ox 06/17/16 10:51 97.8 F 99 16 143/91 94 L 06/17/16 10:00 18 93 L 06/17/16 07:27 97.4 F L 106 118 149/80 93 L 06/17/16 04:15 98.1 F 110 16 112/63 89 L Intake and Output 06/16/16 06/17/16 06/17/16 23:59 07:59 15:59 Intake Total 1100 / 1100 1100 / 1100 1100 / 1100 Output Total 700 / 700 1050 / 1050 600 / 600 Balance 400 / 400 50 / 50 500 / 500 Intake: IV Fluids 1100 / 1100 1100 / 1100 1100 / 1100 0.9 % Sodium Chloride 1, 1000 / 1000 1000 / 1000 1000 / 1000 000 ML @ 140 mls/hr IV CONT [facility] Rx#:[id number] Zosyn 3.375 GM In 100 / 100 100 / 100 100 / 100 Dextrose 5% (Minibag+) 100 ML 100 ML @ 25 mls/hr IVPB Q8H [facility] Rx#: [id number] Oral 0 / 0 Output: Catheter 700 / 700 1050 / 1050 600 / 600 Other: Meal NPO NPO Percent of Meal Consumed 0% Weight 102.7 kg Blood Glucose* 91 85 Patient Weight 06/17/16 23:59 Weight 102.7 kg - General physical appearance well developed, well nourished, no distress, moderate pain, obese - Eyes PERRL, normal ocular movement - ENT normal mucosa, atraumatic, normocephalic - Neck Neck exam: trachea midline - Respiratory normal respiratory effort, clear to auscultation - Cardiovascular Cardiovascular exam: Present: RRR, tachycardia - Abdomen Abdomen: Present: bowel sounds present, soft, distended (improving), tender ( Right lower quadrant, improving daily) Abdominal Tenderness: RLQ, LLQ, suprapubic - Genitourinary other (Luz catheter is then removed) - Integumentary no rash, no growths - Neurologic CN 2-12 grossly intact - Musculoskeletal normal gait, normal posture - Psychiatric oriented to time, oriented to person, oriented to place, speech is normal, memory intact - Labs 06/17/16 05:11 06/17/16 05:11 Short CBC 06/17/16 Range/Units 05:11 WBC 10.2 (4.3-11.1) K/mcL Hgb 13.0 (12.9-16.9) g/dL Hct 38.0 (37.5-50.1) % Plt Count 174 (140-400) K/mcL Neutrophils # 7.9 (1.6-8.9) K/mcL BMP 06/17/16 Range/Units 05:11 Potassium 3.4 L (3.5-4.5) mEq/L Vital Signs Temp Pulse Resp BP Pulse Ox 06/17/16 15:57 105 13 162/103 98 06/17/16 15:52 105 16 153/90 97 06/17/16 15:47 108 18 139/99 98 06/17/16 15:42 106 16 167/109 95 06/17/16 15:38 104 13 148/110 94 L 06/17/16 15:32 107 14 154/103 97 06/17/16 15:27 107 12 143/100 97 06/17/16 15:23 108 15 144/113 97 06/17/16 15:17 107 15 156/102 97 06/17/16 15:13 105 19 150/98 96 06/17/16 15:05 109 12 142/112 06/17/16 10:51 97.8 F 99 16 143/91 94 L 06/17/16 10:00 18 93 L 06/17/16 07:27 97.4 F L 106 118 149/80 93 L 06/17/16 04:15 98.1 F 110 16 112/63 89 L 06/16/16 23:59 98.0 F 114 15 155/91 94 L 06/16/16 21:15 18 99 06/16/16 20:43 98.3 F 98 16 131/90 93 L Intake and Output 06/17/16 06/17/16 06/17/16 07:59 15:59 23:59 Intake Total 1100 / 1100 1100 / 1100 Output Total 1050 / 1050 600 / 600 Balance 50 / 50 500 / 500 Intake: IV Fluids 1100 / 1100 1100 / 1100 0.9 % Sodium Chloride 1, 1000 / 1000 1000 / 1000 000 ML @ 140 mls/hr IV CONT [facility] Rx#:[id number] Zosyn 3.375 GM In 100 / 100 100 / 100 Dextrose 5% (Minibag+) 100 ML 100 ML @ 25 mls/hr IVPB Q8H [facility] Rx#: [id number] Output: Catheter 1050 / 1050 600 / 600 Other: Meal NPO Weight 102.7 kg Blood Glucose* 85 81 Patient Weight 06/17/16 23:59 Weight 102.7 kg - Imaging CT scan - abdomen: report reviewed, image reviewed CT scan - pelvis: report reviewed, image reviewed Consult Discharge Plan - Plan Referrals: Leslye Alves [Primary Care Provider] - - Attending Attestation I examined this patient and my medical decision-making was reviewed with the VEGETABLE HANDLER/PA/Advanced Practice Nurse/Resident Physician. I agree with the documented findings, disposition and treatment plan as described except to the extent set forth below. I examined this patient and my medical decision-making was reviewed with the VEGETABLE HANDLER/PA/Advanced Practice Nurse/Resident Physician. I agree with the documented findings, disposition and treatment plan as described except to the extent set forth below.
[2016-06-17] MEDS ORDERED: D10% in Water 500 ML IV PRN (12:25)
[2016-06-17 12:29] LABS: Magnesium 1.3 mg/dL (1.6-2.6); Phosphorous 1.9 mg/dL (2.3-4.7); Potassium 3.4 mEq/L (3.5-4.5)
[2016-06-17] MEDS: Nicotine 14 MG PATCH.TD24 TD SCH (12:49)
[2016-06-17] MEDS ORDERED: 0.9 % Sodium Chloride 500 ML ONE (15:07)
[2016-06-17] MEDS ORDERED: *HR* FentaNYL (PF) 100 MCG/2 ML VIAL ONE (15:08)
[2016-06-17] MEDS ORDERED: *HR* Midazolam HCl 2 MG/2 ML VIAL ONE (15:08)
[2016-06-17] MEDS: *HR* FentaNYL (PF) 100 MCG/2 ML VIAL IV PRN ×2 (15:12→15:22)
[2016-06-17] MEDS: *HR* Midazolam HCl 2 MG/2 ML VIAL IV PRN ×2 (15:13→15:22)
--- NOTE | 2016-06-17 15:40 | Pre-Sedation Evaluation ---
Pre-sedation evaluation - Pre-sedation checklist Date of procedure: 06/17/16 Procedure: drain placement Recent Vitals: Last Vital Signs Temp 97.8 F 06/17/16 10:51 Pulse 107 06/17/16 15:32 Resp 14 06/17/16 15:32 BP 154/103 06/17/16 15:32 Pulse Ox 97 06/17/16 15:32 H&P (including ROS) documented in medical record: Yes Previous reaction to sedatives/anesthetics: No Dietary Status: NPO after Midnight Airway Assessment: Patient can open mouth completely, TMJ function normal, Micrognathia (under-bite, receding chin) absent, Neck with adequate range of motion Dentition: full dentition ASA Classification *see protocol: CLASS II-Mild systemic disease Plan of Care: Pt appropriate candidate for procedure/moderate/conscious sedation , Risks/benefits of procedure/sedation discussed w/ patient/family, If not NPO; Risk of intake outweiged by necessity to perform procedure
--- NOTE | 2016-06-17 16:01 | IR Procedure Note ---
Date of procedure: 06/17/16 Consent Obtained: Verbal consent, Written consent Timeout: Correct patient and procedure verified, Correct site verified, Time out performed, Skin prep completed Local anesthetic: Lidocaine 1% Indications: perforated diverticulitis Procedure Performed: 10F pigtail drains placed in presacral and central mesenteric collections Site/Technique: peritoneum Results/Findings: purulent fluid aspirated and sent to lab Estimated blood loss (cc): 1 Complications: None; Tolerated procedure well Post Procedure Treatment Plan: bedrest x 1 hour; drains to LAXMI bulb suction with 10 mL flushes q day
[2016-06-17] MEDS ORDERED: Clinimix E 5%-15% SOLUTION 2,000 ML with MVI, adult with vitamin K 10 ML IV SCH (17:00)
[2016-06-18] MEDS: GuaiFENesin/Codeine Oral Soln 5 ML UDC PO SCH ×4 (00:03→17:06)
[2016-06-18] MEDS: *HR* HYDROmorphone (PF) 1 MG/ML SYRINGE IVP PRN ×7 (00:09→17:15)
[2016-06-18] MEDS: Ipratropium/Albuterol Neb 3 ML IH SCH ×4 (04:09→22:25)
[2016-06-18] MEDS: Acetylcysteine 10% 2 ML INHSOL IH SCH ×4 (04:10→22:27)
[2016-06-18] MEDS: *HR* Heparin 5,000 UNIT/ML VIAL SQ SCH ×2 (05:31→17:06)
[2016-06-18] MEDS: Piperacillin/Tazobactam 3.375 GM in D5% in Water (Mini-Bag+) 100 ML IVPB SCH ×3 (05:32→20:25)
[2016-06-18] MEDS: 0.9 % Sodium Chloride 1,000 ML IV SCH ×2 (05:37→15:00)
[2016-06-18 05:49] LABS: Basophils % 0.4 %; Eosinophils # 0.1 K/mcL (0.0-0.6); Eosinophils % 1.5 %; Immature Granulocytes % 1.6 % (0-4); Lymphocytes # 1.2 K/mcL (0.6-4.6); Lymphocytes % 14.8 %; Mean Corpuscular HGB Conc 35.8 g/dL (31.6-35.5); Mean Corpuscular Hemoglobin 29.8 pg (28.0-33.3); Mean Platelet Volume 10.2 fL (9.4-12.4); Monocytes # 0.8 K/mcL (0.0-1.3); Monocytes % 9.9 %; Neutrophils # 5.8 K/mcL (1.6-8.9); Platelet Count 170 K/mcL (140-400); Red Blood Count 4.33 M/mcL (4.19-5.50); Red Cell Distribution Width 12.4 % (11.5-14.5); Segmented Neutrophils % 71.8 %
[2016-06-18 05:53] LABS: Hemoglobin 12.9 g/dL (12.9-16.9); Mean Corpuscular Volume 83.1 fL (83.0-100.0)
[2016-06-18 06:05] LABS: Magnesium 1.5 mg/dL (1.6-2.6)
[2016-06-18 06:06] LABS: Albumin 2.2 g/dL (3.5-5.0); BUN/Creatinine Ratio 8 (6-26); Blood Urea Nitrogen 5 mg/dL (8-26); Calcium 7.3 mg/dL (8.6-10.8); Carbon Dioxide 22 mEq/L (19-29); Chloride 106 mEq/L (98-109); Glucose 136 mg/dL (70-99); Osmolality,Calculated 283 (280-300); Phosphorous 2.1 mg/dL (2.3-4.7); Potassium 2.7 mEq/L (3.5-4.5); Sodium 137 mEq/L (136-145); eGFR For African Americans > 60 (> 60); eGFR For Non-African Americans > 60 (> 60)
[2016-06-18] MEDS: Pantoprazole 40 MG VIAL IVP SCH (08:04)
--- NOTE | 2016-06-18 10:26 | General Surgery Progress Note ---
Date of Encounter: 06/18/16 Time of Encounter: 12:54 - Assessment and Plan (1) Perforation of sigmoid colon due to diverticulitis Current Visit: Yes Status: Acute patient continues to show improvement in symptoms, but is bindery machine tender. Abdomen is soft. IR placed two drains 06/17/16 for intra-abdominal abscesses 10F pigtail drains placed in presacral and central mesenteric collections WBC: trending down 8.0 (today) Afebrile continue Abx, zosyn Metz was removed yesterday. Pt. still complaining of dysuria and difficulty voiding. Will check a post-void bladder scan and re-place metz if he is retaining large amounts of urine. serial abdominal exams Pain control Pt. has been NPO since admission. TPN was started on 06/17/16. Will advance to clear liquid diet to see if patient can tolerate. If so, will discontinue TPN. (2) Hypertension Current Visit: No Status: Chronic normotensive, continue to monitor, PRN B lucía Qualifiers: Hypertension type: essential hypertension Qualified Code(s): I10 - Essential (primary) hypertension (3) Tobacco abuse Current Visit: No Status: Chronic Smoking cessation education Nicotine patch (4) DVT prophylaxis Current Visit: Yes Status: Acute Heparin subq 5000 BID (5) Leukocytosis Current Visit: Yes Status: Resolved WBC: trending down 8.0 today. Continue IV abx: Zosyn Follow WBC Qualifiers: Leukocytosis type: unspecified Qualified Code(s): D72.829 - Elevated white blood cell count, unspecified (6) Tachycardia Current Visit: Yes Status: Acute BB prn (7) Dysuria Current Visit: Yes Status: Acute Metz was removed, however pt's dysuria continues will check post-void bladder scan. If pt. retaining substantial urine, will place metz (8) Cough Current Visit: Yes Status: Acute bronchodilators mucomyst Subjective Patient reports: still having pain, no flatus, no bowel movement, afebrile Narrative: Patient seen and examined at bedside with Dr. Leal. He had 2 drains placed yesterday by IR. WBC is 8.0 today. He remains afebrile. Metz catheter was removed yesterday, however patient is complaining of difficulty urinating. Will obtain a bladder scan post void. His electrolyte deficiencies will be addressed. Abdominal pain is decreased from last examination. Denies nausea or vomiting. Afebrile. He has not had a bowel movement yet, but he is having flatus. Objective Vital Signs - Last 8 Hours Temp Pulse Resp BP Pulse Ox 06/18/16 07:57 98.1 F 97 16 105/71 97 06/18/16 04:10 20 95 06/18/16 04:05 97.7 F 95 18 117/75 95 Intake and Output 06/17/16 06/18/16 06/18/16 23:59 07:59 15:59 Intake Total 1100 / 1100 350 / 350 Output Total 1027 / 1027 600 / 600 Balance 73 / 73 -250 / -250 Intake: IV Fluids 1100 / 1100 350 / 350 0.9 % Sodium Chloride 1, 1000 / 1000 000 ML @ 125 mls/hr IV CONT [facility] Rx#:[id number] Intralipid 20% 250 ML @ 250 / 250 21 mls/hr IVPB MoWeFr@ 1700 [facility] Rx#:[id number] Zosyn 3.375 GM In 100 / 100 100 / 100 Dextrose 5% (Minibag+) 100 ML 100 ML @ 25 mls/hr IVPB Q8H [facility] [place] Rx#: [id number] Oral 0 / 0 0 / 0 Output: Urine 1000 / 1000 550 / 550 Wound Drainage 50 / 50 Left Buttock 20 / 20 25 / 25 Right Abdomen 25 / 25 Other: Meal npo Weight 103.8 kg Blood Glucose* 104 130 Patient Weight 06/18/16 23:59 Weight 103.8 kg - Additional Exam - General physical appearance well developed, well nourished, no distress, moderate pain, obese - Eyes PERRL, normal ocular movement - ENT normal mucosa, atraumatic, normocephalic - Neck Neck exam: trachea midline - Respiratory normal respiratory effort, clear to auscultation - Cardiovascular Cardiovascular exam: Present: RRR, tachycardia - Abdomen Abdomen: Present: bowel sounds present, soft, distended (improving), tender ( Right lower quadrant, improving daily), 10F pigtail drains placed in presacral and central mesenteric collections Abdominal Tenderness: RLQ, LLQ, suprapubic - Genitourinary other (Metz catheter is then removed) - Integumentary no rash, no growths - Neurologic CN 2-12 grossly intact - Musculoskeletal normal gait, normal posture - Psychiatric oriented to time, oriented to person, oriented to place, speech is normal, memory intact - Labs 06/19/16 03:30 06/18/16 05:26 Diabetes panel 06/17/16 06/18/16 Range/Units 05:11 05:26 Sodium 137 (136-145) mEq/L Potassium 3.4 L 2.7 L (3.5-4.5) mEq/L Chloride 106 (98-109) mEq/L Carbon Dioxide 22 (19-29) mEq/L BUN 5 L (8-26) mg/dL Creatinine 0.61 L (0.72-1.25) mg/dL Glucose 136 H (70-99) mg/dL Calcium 7.3 L (8.6-10.8) mg/dL Albumin 2.2 L (3.5-5.0) g/dL Triglycerides 219 H (< 150) mg/dL Calcium panel 06/17/16 06/18/16 06/18/16 Range/Units 05:11 05:26 05:26 Calcium 7.3 L (8.6-10.8) mg/dL Phosphorus 1.9 L 2.1 L (2.3-4.7) mg/dL Albumin 2.2 L (3.5-5.0) g/dL Pituitary panel 06/17/16 06/18/16 Range/Units 05:11 05:26 Sodium 137 (136-145) mEq/L Potassium 3.4 L 2.7 L (3.5-4.5) mEq/L Chloride 106 (98-109) mEq/L Carbon Dioxide 22 (19-29) mEq/L BUN 5 L (8-26) mg/dL Creatinine 0.61 L (0.72-1.25) mg/dL Glucose 136 H (70-99) mg/dL Calcium 7.3 L (8.6-10.8) mg/dL Adrenal panel 06/17/16 06/18/16 Range/Units 05:11 05:26 Sodium 137 (136-145) mEq/L Potassium 3.4 L 2.7 L (3.5-4.5) mEq/L Chloride 106 (98-109) mEq/L Carbon Dioxide 22 (19-29) mEq/L BUN 5 L (8-26) mg/dL Creatinine 0.61 L (0.72-1.25) mg/dL Glucose 136 H (70-99) mg/dL Calcium 7.3 L (8.6-10.8) mg/dL Albumin 2.2 L (3.5-5.0) g/dL Consult Discharge Plan - Plan Referrals: Leslye Alves [Primary Care Provider] - - Attending Attestation I examined this patient and my medical decision-making was reviewed with the GEOLOGICAL DRAFTER/PA/Advanced Practice Nurse/Resident Physician. I agree with the documented findings, disposition and treatment plan as described except to the extent set forth below. The patient is seen and evaluated on morning rounds with the resident. His abdominal pain is improved and his white blood cell count is normalized. We will continue current antibiotic therapy augmented by CAT scan drainage of diverticular abscesses. Zhen Leal MD FACS
[2016-06-18] MEDS ORDERED: Magnesium Sulfate 2 GM in D5% in Water 100 ML IVPB ONE (11:20)
[2016-06-18] MEDS ORDERED: Potassium Phosphate 44 MEQ in 0.9 % Sodium Chloride 250 ML IVPB ONE (11:22)
[2016-06-18] MEDS: Nicotine 14 MG PATCH.TD24 TD SCH (11:36)
[2016-06-18] MEDS: Clinimix E 5%-15% SOLUTION 2,000 ML with MVI, adult with vitamin K 10 ML IV SCH (17:08)
[2016-06-19] MEDS: *HR* HYDROmorphone (PF) 1 MG/ML SYRINGE IVP PRN ×7 (00:11→21:05)
[2016-06-19] MEDS: GuaiFENesin/Codeine Oral Soln 5 ML UDC PO SCH ×4 (00:11→18:44)
[2016-06-19] MEDS: Ipratropium/Albuterol Neb 3 ML IH SCH ×4 (03:15→22:29)
[2016-06-19] MEDS: Acetylcysteine 10% 2 ML INHSOL IH SCH ×4 (03:17→22:29)
[2016-06-19 04:34] LABS: Hematocrit 38.9 % (37.5-50.1); Hemoglobin 13.3 g/dL (12.9-16.9); Immature Granulocytes % 3.4 % (0-4); Lymphocytes % 14.7 %; Mean Corpuscular HGB Conc 34.2 g/dL (31.6-35.5); Mean Corpuscular Hemoglobin 29.1 pg (28.0-33.3); Mean Corpuscular Volume 85.1 fL (83.0-100.0); Mean Platelet Volume 10.3 fL (9.4-12.4); Platelet Count 201 K/mcL (140-400); Red Blood Count 4.57 M/mcL (4.19-5.50); Red Cell Distribution Width 12.8 % (11.5-14.5); Segmented Neutrophils % 66.4 %
[2016-06-19 04:35] LABS: Basophils # 0.1 K/mcL (0.0-0.2); Basophils % 0.5 %; Eosinophils # 0.3 K/mcL (0.0-0.6); Lymphocytes # 1.4 K/mcL (0.6-4.6); Monocytes # 1.2 K/mcL (0.0-1.3); Neutrophils # 6.5 K/mcL (1.6-8.9)
[2016-06-19 04:52] LABS: Magnesium 1.7 mg/dL (1.6-2.6); Phosphorous 2.7 mg/dL (2.3-4.7)
[2016-06-19] MEDS: *HR* Heparin 5,000 UNIT/ML VIAL SQ SCH ×2 (06:25→18:44)
[2016-06-19] MEDS: Piperacillin/Tazobactam 3.375 GM in D5% in Water (Mini-Bag+) 100 ML IVPB SCH ×3 (06:25→20:52)
[2016-06-19] MEDS: Pantoprazole 40 MG VIAL IVP SCH (09:30)
--- NOTE | 2016-06-19 11:58 | General Surgery Progress Note ---
Date of Encounter: 06/19/16 Time of Encounter: 11:53 - Assessment and Plan (1) Perforation of sigmoid colon due to diverticulitis Current Visit: Yes Status: Acute HD 6 Abdomen is soft but ammonia distiller IR placed two drains 06/17/16 for intra-abdominal abscesses 10F pigtail drains placed in presacral and central mesenteric collections WBC: 9.7 Afebrile continue Abx, zosyn (day 6) Pt. had post-void bladder scan of 325 after removal of metz. D/t urinary retention metz was placed. serial abdominal exams Pain control TPN was started on 06/17/16. Pt. tolerated clear liquds yesterday. Will keep him on clears for today. (2) Hypertension Current Visit: No Status: Chronic normotensive, continue to monitor, PRN B lucía Qualifiers: Hypertension type: essential hypertension Qualified Code(s): I10 - Essential (primary) hypertension (3) Tobacco abuse Current Visit: No Status: Chronic Smoking cessation education Nicotine patch (4) DVT prophylaxis Current Visit: Yes Status: Acute Heparin subq 5000 BID (5) Leukocytosis Current Visit: Yes Status: Resolved WBC: 9.7 Continue IV abx: Zosyn Follow WBC Qualifiers: Leukocytosis type: unspecified Qualified Code(s): D72.829 - Elevated white blood cell count, unspecified (6) Tachycardia Current Visit: Yes Status: Acute BB prn (7) Dysuria Current Visit: Yes Status: Acute Metz (8) Cough Current Visit: Yes Status: Acute bronchodilators mucomyst Subjective Patient reports: still having pain, tolerating liquids well, flatus, no bowel movement Narrative: Patient seen and examined. Pain at drain site. Denies nausea/vomiting. Flatus but no bm. WBC wnl. Objective Vital Signs - Last 8 Hours Temp Pulse Resp BP Pulse Ox 06/19/16 10:47 98.1 F 98 16 109/73 98 06/19/16 07:42 98.4 F 87 16 142/96 95 06/19/16 05:10 97.9 F 103 18 128/80 96 Intake and Output 06/18/16 06/19/16 06/19/16 23:59 07:59 15:59 Intake Total 580 / 580 1533 / 1533 1000 / 1000 Output Total 1100 / 1100 3580 / 3580 750 / 750 Balance -520 / -520 -2047 / -2047 250 / 250 Intake: IV Fluids 100 / 100 1533 / 1533 0.9 % Sodium Chloride 1, 600 / 600 000 ML @ 125 mls/hr IV CONT [facility] Rx#:[id number] Clinimix E 5%-15% 833 / 833 SOLUTION 2,000 ML @ 83.3 mls/hr IV .Q24H [facility] with M.v.i. Adult 10 ml Rx#: [id number] Zosyn 3.375 GM In 100 / 100 100 / 100 Dextrose 5% (Minibag+) 100 ML 100 ML @ 25 mls/hr IVPB Q8H [facility] Rx#: [id number] Oral 480 / 480 0 / 0 1000 / 1000 Output: Urine 650 / 650 1000 / 1000 0 / 0 Catheter 450 / 450 2550 / 2550 750 / 750 Wound Drainage 0 / 0 30 / 30 0 / 0 Left Buttock 0 / 0 15 / 15 0 / 0 Right Abdomen 0 / 0 15 / 15 0 / 0 Other: Meal Dinner Weight 101.1 kg Blood Glucose* 116 126 129 Patient Weight 06/19/16 23:59 Weight 101.1 kg - Additional Exam - General physical appearance well developed, well nourished, no distress, moderate pain, obese - Eyes PERRL, normal ocular movement - ENT normal mucosa, atraumatic, normocephalic - Neck Neck exam: trachea midline - Respiratory normal respiratory effort, clear to auscultation - Cardiovascular Cardiovascular exam: Present: RRR, tachycardia - Abdomen Abdomen: Present: bowel sounds present, soft, distended (improving), tender ( Right lower quadrant, improving daily), 10F pigtail drains placed in presacral and central mesenteric collections Abdominal Tenderness: RLQ, LLQ, suprapubic - Genitourinary other (Metz catheter is then removed) - Integumentary no rash, no growths - Neurologic CN 2-12 grossly intact - Musculoskeletal normal gait, normal posture - Psychiatric oriented to time, oriented to person, oriented to place, speech is normal, memory intact - Labs 06/20/16 04:00 06/20/16 04:00 Calcium panel 06/19/16 Range/Units 03:30 Phosphorus 2.7 (2.3-4.7) mg/dL Consult Discharge Plan - Plan Referrals: Leslye Alves [Primary Care Provider] - - Attending Attestation I examined this patient and my medical decision-making was reviewed with the DIRECTOR STATE PHARMACY/PA/Advanced Practice Nurse/Resident Physician. I agree with the documented findings, disposition and treatment plan as described except to the extent set forth below. The patient is seen on morning rounds with the resident. His white blood cell count has normalized. He is complaining of some pain along his right sided drain as well as some leakage. The dressing was reinforced. His overall clinical condition has improved with CAT scan drainage of abscesses. Continue antibiotic and drain treatment of perforated diverticulitis. Zhen Leal MD FACS
[2016-06-19] MEDS: Nicotine 14 MG PATCH.TD24 TD SCH (12:10)
[2016-06-19] MEDS: 0.9 % Sodium Chloride 1,000 ML IV SCH (15:40)
[2016-06-19] MEDS: Clinimix E 5%-15% SOLUTION 2,000 ML with MVI, adult with vitamin K 10 ML IV SCH ×2 (17:07→19:31)
[2016-06-20] MEDS: GuaiFENesin/Codeine Oral Soln 5 ML UDC PO SCH ×5 (01:33→23:13)
[2016-06-20] MEDS: *HR* HYDROmorphone (PF) 1 MG/ML SYRINGE IVP PRN ×6 (01:33→20:12)
[2016-06-20] MEDS: Ipratropium/Albuterol Neb 3 ML IH SCH ×4 (03:47→22:14)
[2016-06-20] MEDS: Acetylcysteine 10% 2 ML INHSOL IH SCH ×4 (03:49→22:15)
[2016-06-20 04:21] LABS: Hematocrit 39.7 % (37.5-50.1); Hemoglobin 13.5 g/dL (12.9-16.9); Mean Corpuscular Volume 85.2 fL (83.0-100.0); Mean Platelet Volume 10.1 fL (9.4-12.4); Nucleated Red Blood Cells 0.2 /100 WBC (0); Platelet Count 234 K/mcL (140-400); Red Blood Count 4.66 M/mcL (4.19-5.50); Red Cell Distribution Width 12.8 % (11.5-14.5)
[2016-06-20 04:33] LABS: Magnesium 1.8 mg/dL (1.6-2.6); Phosphorous 2.9 mg/dL (2.3-4.7)
[2016-06-20 04:34] LABS: BUN/Creatinine Ratio 10 (6-26); Blood Urea Nitrogen 6 mg/dL (8-26); Calcium 7.8 mg/dL (8.6-10.8); Carbon Dioxide 23 mEq/L (19-29); Chloride 105 mEq/L (98-109); Glucose 107 mg/dL (70-99); Osmolality,Calculated 284 (280-300); Potassium 3.6 mEq/L (3.5-4.5); Sodium 138 mEq/L (136-145); eGFR For African Americans > 60 (> 60); eGFR For Non-African Americans > 60 (> 60)
[2016-06-20] MEDS: Piperacillin/Tazobactam 3.375 GM in D5% in Water (Mini-Bag+) 100 ML IVPB SCH ×3 (05:11→20:23)
[2016-06-20] MEDS: *HR* Heparin 5,000 UNIT/ML VIAL SQ SCH ×2 (05:12→16:45)
[2016-06-20 06:10] LABS: Lymphocytes # 1.5 K/mcL (0.6-4.6); Monocytes # 0.9 K/mcL (0.0-1.3); Neutrophils # 8.5 K/mcL (1.6-8.9); Platelet Estimate Normal (Normal); Toxic Granulation Present (Not Present)
[2016-06-20] MEDS: Pantoprazole 40 MG VIAL IVP SCH (07:51)
[2016-06-20] MEDS: Nicotine 14 MG PATCH.TD24 TD SCH (07:52)
--- NOTE | 2016-06-20 14:59 | General Surgery Progress Note ---
Date of Encounter: 06/20/16 Time of Encounter: 14:30 - Assessment and Plan (1) Perforation of sigmoid colon due to diverticulitis Current Visit: Yes Status: Acute Continue with conservative therapy at this time including: Continue clear liquids- may have ice cream IV antibiotics- Zosyn s/p IR drainage of abscess fluid collections X 2 on 06/17 Cultures pending Saline lock IV fluids Continue TPN at goal rate Supportive care/pain control Serial abdominal exams Repeat am labs Add stool softner and MOM today continue abx, monitor wbc count it has slowly increased although still within normal range physical exam improves daily but patient has been slow to get to this point (2) Hypertension Current Visit: No Status: Chronic Stable Continue metoprolol and hydralazine prn Qualifiers: Hypertension type: essential hypertension Qualified Code(s): I10 - Essential (primary) hypertension (3) Tachycardia Current Visit: Yes Status: Acute Improved (4) Cough Current Visit: Yes Status: Acute Improved Continue mucomust and aerosols (5) Leukocytosis Current Visit: Yes Status: Resolved Stable 13>10.2>8>9.7>10.9 Continue IV antibiotics- Zosyn Repeat am labs Qualifiers: Leukocytosis type: unspecified Qualified Code(s): D72.829 - Elevated white blood cell count, unspecified (6) Tobacco abuse Current Visit: No Status: Chronic Smoking cessation education Nicotine patch (7) Urinary retention Current Visit: Yes Status: Acute Continue metz catheter to SD Patient started on flomax (8) Constipation Current Visit: Yes Status: Acute Add colace BID Add milk of magnesia Qualifiers: Constipation type: unspecified constipation type Qualified Code(s): K59.00 - Constipation, unspecified (9) DVT prophylaxis Current Visit: Yes Status: Acute Continue heparin 5,000 units SQ twice daily for DVT prophylaxis Subjective Patient reports: no new complaints, feels better, still having pain, pain is less, tolerating liquids well (mild bloating with liquids), flatus, no bowel movement, afebrile Narrative: patient continues to feel better daily with slow improvements in pain, particulary his RLQ pain. No nausea, is tolerating clears, passing flatus without bm Objective Vital Signs - Last 8 Hours Temp Pulse Resp BP Pulse Ox 06/20/16 11:35 97.9 F 105 18 137/89 95 06/20/16 11:11 98.2 F 96 16 129/82 97 06/20/16 11:07 14 96 06/20/16 07:49 98.2 F 96 14 148/91 96 Intake and Output 06/19/16 06/20/16 06/20/16 23:59 07:59 15:59 Intake Total 460 / 460 1448 / 1448 820 / 820 Output Total 3100 / 3100 2750 / 2750 1700 / 1700 Balance -2640 / -2640 -1302 / -1302 -880 / -880 Intake: IV Fluids 100 / 100 1448 / 1448 100 / 100 0.9 % Sodium Chloride 1, 432 / 432 000 ML @ 125 mls/hr IV CONT [facility] Rx#:[id number] Clinimix E 5%-15% 916 / 916 SOLUTION 2,000 ML @ 83.3 mls/hr IV .Q24H [facility] with M.v.i. Adult 10 ml Rx#: [id number] Zosyn 3.375 GM In 100 / 100 100 / 100 100 / 100 Dextrose 5% (Minibag+) 100 ML 100 ML @ 25 mls/hr IVPB Q8H [facility] Rx#: [id number] Oral 360 / 360 0 / 0 720 / 720 Output: Urine 1550 / 1550 1425 / 1425 1000 / 1000 Catheter 1550 / 1550 1325 / 1325 700 / 700 Wound Drainage 0 / 0 Left Buttock 0 / 0 Right Abdomen 0 / 0 Other: Meal Dinner Lunch Weight 100.8 kg Blood Glucose* 99 124 119 Patient Weight 06/20/16 23:59 Weight 100.8 kg - General physical appearance well developed, well nourished, no distress, obese - Eyes PERRL, normal ocular movement - ENT normal mucosa, atraumatic, normocephalic - Neck Neck exam: trachea midline - Respiratory normal expansion, normal respiratory effort, clear to auscultation - Cardiovascular Cardiovascular exam: Present: RRR - Abdomen Abdomen: Present: bowel sounds present, soft, tender (improving ), wound ( Pigtail drains X 2 with serousang. drainage noted (15ml/drain yesterday)) Abdominal Tenderness: RLQ, suprapubic - Genitourinary other (metz catheter to SD with clear yellow urine) - Integumentary no rash, no growths, no abnormal pigmentation - Neurologic CN 2-12 grossly intact - Musculoskeletal normal posture - Psychiatric oriented to time, oriented to person, oriented to place, speech is normal, memory intact - Labs 06/22/16 06:28 06/22/16 06:28 Diabetes panel 06/20/16 Range/Units 04:00 Sodium 138 (136-145) mEq/L Potassium 3.6 (3.5-4.5) mEq/L Chloride 105 (98-109) mEq/L Carbon Dioxide 23 (19-29) mEq/L BUN 6 L (8-26) mg/dL Creatinine 0.62 L (0.72-1.25) mg/dL Glucose 107 H (70-99) mg/dL Calcium 7.8 L (8.6-10.8) mg/dL Calcium panel 06/20/16 06/20/16 Range/Units 04:00 04:00 Calcium 7.8 L (8.6-10.8) mg/dL Phosphorus 2.9 (2.3-4.7) mg/dL Pituitary panel 06/20/16 Range/Units 04:00 Sodium 138 (136-145) mEq/L Potassium 3.6 (3.5-4.5) mEq/L Chloride 105 (98-109) mEq/L Carbon Dioxide 23 (19-29) mEq/L BUN 6 L (8-26) mg/dL Creatinine 0.62 L (0.72-1.25) mg/dL Glucose 107 H (70-99) mg/dL Calcium 7.8 L (8.6-10.8) mg/dL Adrenal panel 06/20/16 Range/Units 04:00 Sodium 138 (136-145) mEq/L Potassium 3.6 (3.5-4.5) mEq/L Chloride 105 (98-109) mEq/L Carbon Dioxide 23 (19-29) mEq/L BUN 6 L (8-26) mg/dL Creatinine 0.62 L (0.72-1.25) mg/dL Glucose 107 H (70-99) mg/dL Calcium 7.8 L (8.6-10.8) mg/dL - VTE Documentation of Mechanical Device: Intermittent pneumatic compression device Consult Discharge Plan - Plan Referrals: Leslye Alves [Primary Care Provider] - - Attending Attestation I examined this patient and my medical decision-making was reviewed with the FISH ROD MAKER/PA/Advanced Practice Nurse/Resident Physician. I agree with the documented findings, disposition and treatment plan as described except to the extent set forth below. I examined this patient and my medical decision-making was reviewed with the FISH ROD MAKER/PA/Advanced Practice Nurse/Resident Physician. I agree with the documented findings, disposition and treatment plan as described except to the extent set forth below.
[2016-06-20] MEDS: MOM Conc 10 ML UD.LIQ PO SCH (16:43)
[2016-06-20] MEDS ORDERED: Clinimix E 5%-15% SOLUTION 2,000 ML with MVI, adult with vitamin K 10 ML IV SCH (17:00)
[2016-06-20] MEDS: Clinimix E 5%-15% SOLUTION 2,000 ML with MVI, adult with vitamin K 10 ML IV SCH (18:09)
[2016-06-21] MEDS: *HR* HYDROmorphone (PF) 1 MG/ML SYRINGE IVP PRN ×6 (01:23→19:55)
[2016-06-21] MEDS: Ipratropium/Albuterol Neb 3 ML IH SCH ×4 (04:09→21:08)
[2016-06-21] MEDS: Acetylcysteine 10% 2 ML INHSOL IH SCH ×4 (04:12→21:09)
[2016-06-21] MEDS: Piperacillin/Tazobactam 3.375 GM in D5% in Water (Mini-Bag+) 100 ML IVPB SCH ×3 (05:26→19:48)
[2016-06-21] MEDS: GuaiFENesin/Codeine Oral Soln 5 ML UDC PO SCH ×4 (05:28→23:50)
[2016-06-21] MEDS: *HR* Heparin 5,000 UNIT/ML VIAL SQ SCH ×2 (05:28→17:58)
[2016-06-21 07:30] LABS: Hematocrit 39.6 % (37.5-50.1); Hemoglobin 13.3 g/dL (12.9-16.9); Mean Corpuscular HGB Conc 33.6 g/dL (31.6-35.5); Mean Corpuscular Hemoglobin 28.7 pg (28.0-33.3); Mean Corpuscular Volume 85.3 fL (83.0-100.0); Mean Platelet Volume 10.3 fL (9.4-12.4); Monocytes # 1.4 K/mcL (0.0-1.3); Platelet Count 290 K/mcL (140-400); Red Blood Count 4.64 M/mcL (4.19-5.50); Red Cell Distribution Width 12.7 % (11.5-14.5)
[2016-06-21 07:58] LABS: Eosinophils # 1.4 K/mcL (0.0-0.6); Lymphocytes # 1.2 K/mcL (0.6-4.6); Neutrophils # 10.4 K/mcL (1.6-8.9); Platelet Estimate Normal (Normal)
[2016-06-21] MEDS: MOM Conc 10 ML UD.LIQ PO SCH (08:13)
[2016-06-21] MEDS: Pantoprazole 40 MG VIAL IVP SCH (08:28)
--- NOTE | 2016-06-21 11:36 | General Surgery Progress Note ---
Date of Encounter: 06/21/16 Time of Encounter: 14:00 - Assessment and Plan (1) Perforation of sigmoid colon due to diverticulitis Current Visit: Yes Status: Acute Continue with conservative therapy at this time including: NPO CT scan of abdomen/pelvis today IV antibiotics- Zosyn s/p IR drainage of abscess fluid collections X 2 on 06/17 Cultures pending- GNR Continue TPN at goal rate Supportive care/pain control Serial abdominal exams Repeat am labs Positive BM with stool softner and MOM patient wbc increased today, if increases again tomorrow will consult ID given that clinically patient continues to improve, awaiting identification on GNR from abscess culture. continue diet prn pain control ambulate tpn until improved po intake (2) Hypertension Current Visit: No Status: Chronic Stable Continue metoprolol and hydralazine prn Qualifiers: Hypertension type: essential hypertension Qualified Code(s): I10 - Essential (primary) hypertension (3) Tachycardia Current Visit: Yes Status: Acute Stable (4) Cough Current Visit: Yes Status: Acute Improved Continue mucomust and aerosols (5) Leukocytosis Current Visit: Yes Status: Resolved Stable 13>10.2>8>9.7>10.9>14.4 with 4 bands noted Continue IV antibiotics- Zosyn Repeat am labs Qualifiers: Leukocytosis type: unspecified Qualified Code(s): D72.829 - Elevated white blood cell count, unspecified (6) Tobacco abuse Current Visit: No Status: Chronic Smoking cessation education Nicotine patch (7) Urinary retention Current Visit: Yes Status: Acute Continue metz catheter to SD Patient started on flomax 06/19 (8) Constipation Current Visit: Yes Status: Acute Continue colace BID Continue milk of magnesia prn Qualifiers: Constipation type: unspecified constipation type Qualified Code(s): K59.00 - Constipation, unspecified (9) DVT prophylaxis Current Visit: Yes Status: Acute Continue heparin 5,000 units SQ twice daily for DVT prophylaxis Subjective Patient reports: still having pain (unchanged), flatus, bowel movement (last evening), diarrhea, nausea (feeling bloated today), afebrile Narrative: still no bm but plenty of flatus tolerating diet pain improved, less tender RLQ ambulating well, complains of his chronic neck pain Objective Vital Signs - Last 8 Hours Temp Pulse Resp BP Pulse Ox 06/21/16 07:36 98.4 F 100 15 126/85 95 06/21/16 04:13 18 97 06/21/16 04:09 98.3 F 114 14 142/86 93 L Intake and Output 06/20/16 06/21/16 06/21/16 23:59 07:59 15:59 Intake Total 1554 / 1554 350 / 350 1268 / 1268 Output Total 800 / 800 1575 / 1575 Balance 754 / 754 -1225 / -1225 1268 / 1268 Intake: IV Fluids 1194 / 1194 350 / 350 1268 / 1268 Clinimix E 5%-15% 1094 / 1094 1268 / 1268 SOLUTION 2,000 ML @ 83.3 mls/hr IV .Q24H [facility] with M.v.i. Adult 10 ml Rx#: [id number] Intralipid 20% 250 ML @ 250 / 250 21 mls/hr IVPB MoWeFr@ 1700 [facility] Rx#:[id number] Zosyn 3.375 GM In 100 / 100 100 / 100 Dextrose 5% (Minibag+) 100 ML 100 ML @ 25 mls/hr IVPB Q8H [facility] Rx#: [id number] Oral 360 / 360 0 / 0 Output: Urine 800 / 800 Catheter 1575 / 1575 Other: Stool Size Large Stool Consistency liquid soft Stool Color Brown Weight 101.1 kg Blood Glucose* 138 141 Patient Weight 06/21/16 23:59 Weight 101.1 kg - General physical appearance well developed, moderate pain (unchanged) - Eyes normal ocular movement - ENT dry mucosa, atraumatic, normocephalic - Neck Neck exam: trachea midline - Respiratory normal respiratory effort, clear to auscultation, other (diminished bibasilar bases) - Cardiovascular Cardiovascular exam: Present: RRR, tachycardia - Abdomen Abdomen: Present: bowel sounds present (hypoactive), soft, distended (mildly), tender, wound (PIgtail drain to RLQ and left buttock with serous drainage noted) . Absent: guarding, rebound Abdominal Tenderness: RLQ, suprapubic - Genitourinary other (metz catheter to SD with clear, yellow urine noted) - Integumentary no rash, no growths - Neurologic CN 2-12 grossly intact - Musculoskeletal normal posture - Psychiatric oriented to time, oriented to person, oriented to place, speech is normal, memory intact - Labs 06/22/16 06:28 06/22/16 06:28 - VTE Documentation of Mechanical Device: Intermittent pneumatic compression device Consult Discharge Plan - Plan Referrals: Leslye Alves [Primary Care Provider] - - Attending Attestation I examined this patient and my medical decision-making was reviewed with the GEAR GRINDING MACHINE OPERATOR/PA/Advanced Practice Nurse/Resident Physician. I agree with the documented findings, disposition and treatment plan as described except to the extent set forth below. I examined this patient and my medical decision-making was reviewed with the GEAR GRINDING MACHINE OPERATOR/PA/Advanced Practice Nurse/Resident Physician. I agree with the documented findings, disposition and treatment plan as described except to the extent set forth below.
[2016-06-21] MEDS: Nicotine 14 MG PATCH.TD24 TD SCH (12:27)
[2016-06-21] MEDS ORDERED: Clinimix E 5%-15% SOLUTION 2,000 ML with MVI, adult with vitamin K 10 ML IVC SCH (17:00)
[2016-06-22] MEDS: Acetylcysteine 10% 2 ML INHSOL IH SCH ×4 (03:41→21:49)
[2016-06-22] MEDS: Ipratropium/Albuterol Neb 3 ML IH SCH ×4 (03:41→21:49)
[2016-06-22] MEDS: GuaiFENesin/Codeine Oral Soln 5 ML UDC PO SCH ×3 (05:06→17:57)
[2016-06-22] MEDS: *HR* Heparin 5,000 UNIT/ML VIAL SQ SCH ×2 (05:06→17:57)
[2016-06-22] MEDS: Piperacillin/Tazobactam 3.375 GM in D5% in Water (Mini-Bag+) 100 ML IVPB SCH ×3 (05:06→21:18)
[2016-06-22] MEDS: *HR* HYDROmorphone (PF) 1 MG/ML SYRINGE IVP PRN ×5 (05:07→21:26)
[2016-06-22 06:52] LABS: Hematocrit 42.4 % (37.5-50.1); Hemoglobin 14.3 g/dL (12.9-16.9); Mean Corpuscular HGB Conc 33.7 g/dL (31.6-35.5); Mean Corpuscular Hemoglobin 28.8 pg (28.0-33.3); Mean Corpuscular Volume 85.3 fL (83.0-100.0); Mean Platelet Volume 10.4 fL (9.4-12.4); Platelet Count 349 K/mcL (140-400); Red Blood Count 4.97 M/mcL (4.19-5.50); Red Cell Distribution Width 12.6 % (11.5-14.5)
[2016-06-22 07:06] LABS: Alanine Aminotransferase 53 Units/L (0-55); Albumin 2.8 g/dL (3.5-5.0); Albumin/Globulin Ratio 0.7 (1.1-2.2); Alkaline Phosphatase 68 Units/L (38-126); Aspartate Amino Transferase 38 Units/L (5-34); BUN/Creatinine Ratio 13 (6-26); Bilirubin,Total 0.8 mg/dL (0.2-1.2); Blood Urea Nitrogen 9 mg/dL (8-26); Carbon Dioxide 22 mEq/L (19-29); Chloride 105 mEq/L (98-109); Globulin 4.3 g/dL (2.4-3.5); Glucose 160 mg/dL (70-99); Osmolality,Calculated 282 (280-300); Potassium 4.1 mEq/L (3.5-4.5); Sodium 135 mEq/L (136-145); Total Protein 7.1 g/dL (6.0-8.3); eGFR For African Americans > 60 (> 60); eGFR For Non-African Americans > 60 (> 60)
[2016-06-22 07:18] LABS: Calcium 8.6 mg/dL (8.6-10.8)
[2016-06-22 07:44] LABS: Eosinophils # 0.2 K/mcL (0.0-0.6); Lymphocytes # 0.5 K/mcL (0.6-4.6); Monocytes # 0.3 K/mcL (0.0-1.3); Neutrophils # 15.8 K/mcL (1.6-8.9); Platelet Estimate Normal (Normal)
[2016-06-22] MEDS: Pantoprazole 40 MG VIAL IVP SCH (08:14)
[2016-06-22] MEDS: Ondansetron 4 MG/2 ML VIAL IVP PRN (08:32)
[2016-06-22] MEDS: Nicotine 14 MG PATCH.TD24 TD SCH (12:25)
--- NOTE | 2016-06-22 12:30 | General Surgery Progress Note ---
Date of Encounter: 06/22/16 Time of Encounter: 12:00 - Assessment and Plan (1) Perforation of sigmoid colon due to diverticulitis Current Visit: Yes Status: Acute Continue with conservative therapy at this time including: Full liquid diet CT scan of abdomen/pelvis yesterday shows significant improvement IV antibiotics- Zosyn s/p IR drainage of abscess fluid collections X 2 on 06/17 Cultures pending- e coli Continue TPN at goal rate Supportive care/pain control Serial abdominal exams Repeat am labs Positive BM with stool softner and MOM ID consult for increasing WBC count with bands Lactic acid- 1.9 (2) Hypertension Current Visit: No Status: Chronic Stable Continue metoprolol and hydralazine prn Qualifiers: Hypertension type: essential hypertension Qualified Code(s): I10 - Essential (primary) hypertension (3) Tachycardia Current Visit: Yes Status: Acute Stable (4) Cough Current Visit: Yes Status: Acute Improved Continue mucomust and aerosols (5) Leukocytosis Current Visit: Yes Status: Resolved Stable 13>10.2>8>9.7>10.9>14.4>16.8 with 10 bands noted Continue IV antibiotics- Zosyn Blood cultures X2 Urine culture Dopplers bilateral lower extremities CXR- no acute abnormalities Repeat am labs Qualifiers: Leukocytosis type: unspecified Qualified Code(s): D72.829 - Elevated white blood cell count, unspecified (6) Tobacco abuse Current Visit: No Status: Chronic Smoking cessation education Nicotine patch (7) Urinary retention Current Visit: Yes Status: Acute Continue metz catheter to SD Patient started on flomax 06/19 (8) Constipation Current Visit: Yes Status: Acute Continue colace BID Continue milk of magnesia prn Qualifiers: Constipation type: unspecified constipation type Qualified Code(s): K59.00 - Constipation, unspecified (9) DVT prophylaxis Current Visit: Yes Status: Acute Continue heparin 5,000 units SQ twice daily for DVT prophylaxis Subjective Patient reports: feels better, still having pain, pain is less, tolerating liquids well (full liquids), flatus, bowel movement (06/20), nausea (occasional) , vomiting (states that he spit up a small amount of liquid this morning), afebrile Objective Vital Signs - Last 8 Hours Temp Pulse Resp BP Pulse Ox 06/22/16 11:58 98.4 F 92 18 129/86 94 L 03/22/17 09:38 18 96 06/22/16 07:34 97.9 F 105 18 119/77 95 06/22/16 05:14 98.2 F 116 14 113/73 93 L Intake and Output 06/21/16 06/22/16 06/22/16 23:59 07:59 15:59 Intake Total 1912 / 1912 200 / 200 1632 / 1632 Output Total 1885 / 1885 2125 / 2125 500 / 500 Balance -1924 / 1132 / 1132 Intake: IV Fluids 942 / 942 1272 / 1272 Clinimix E 5%-15% 742 / 742 SOLUTION 2,000 ML @ 83.3 mls/hr IV .Q24H [facility] with M.v.i. Adult 10 ml Rx#: [id number] Clinimix E 5%-15% 1172 / 1172 SOLUTION 2,000 ML @ 83.3 mls/hr IVC .Q24H [facility] with M.v.i. Adult 10 ml Rx#: [id number] Zosyn 3.375 GM In 200 / 200 100 / 100 Dextrose 5% (Minibag+) 100 ML 100 ML @ 25 mls/hr IVPB Q8H [facility] Rx#: [id number] Oral 970 / 970 200 / 200 360 / 360 Output: Urine 300 / 300 1500 / 1500 Catheter 1575 / 1575 625 / 625 500 / 500 Wound Drainage 10 / 10 Right Abdomen 10 / 10 Other: Meal Lunch Breakfast Percent of Meal Consumed 100% 100% Blood Glucose* 136 137 128 - General physical appearance well developed, no distress, moderate pain (improving) - Eyes normal ocular movement - ENT normal mucosa, atraumatic, normocephalic - Neck Neck exam: trachea midline - Respiratory normal respiratory effort, clear to auscultation, other (diminished bibasilar bases) - Cardiovascular Cardiovascular exam: Present: RRR - Abdomen Abdomen: Present: bowel sounds present, soft, tender (significantly improved), wound (Pigtail drains to RLQ and left buttock with small amount of serous drainage noted) Abdominal Tenderness: RLQ, suprapubic - Genitourinary other (metz catheter to SD with clear, yellow urine) - Integumentary no rash - Neurologic CN 2-12 grossly intact - Psychiatric oriented to time, oriented to person, oriented to place, speech is normal, memory intact - Labs 06/23/16 04:50 06/23/16 04:50 Diabetes panel 06/22/16 Range/Units 06:28 Sodium 135 L (136-145) mEq/L Potassium 4.1 (3.5-4.5) mEq/L Chloride 105 (98-109) mEq/L Carbon Dioxide 22 (19-29) mEq/L BUN 9 (8-26) mg/dL Creatinine 0.68 L (0.72-1.25) mg/dL Glucose 160 H (70-99) mg/dL Calcium 8.6 (8.6-10.8) mg/dL AST 38 H (5-34) Units/L ALT 53 (0-55) Units/L Alkaline Phosphatase 68 (38-126) Units/L Albumin 2.8 L (3.5-5.0) g/dL Calcium panel 06/22/16 Range/Units 06:28 Calcium 8.6 (8.6-10.8) mg/dL Albumin 2.8 L (3.5-5.0) g/dL Pituitary panel 06/22/16 Range/Units 06:28 Sodium 135 L (136-145) mEq/L Potassium 4.1 (3.5-4.5) mEq/L Chloride 105 (98-109) mEq/L Carbon Dioxide 22 (19-29) mEq/L BUN 9 (8-26) mg/dL Creatinine 0.68 L (0.72-1.25) mg/dL Glucose 160 H (70-99) mg/dL Calcium 8.6 (8.6-10.8) mg/dL Adrenal panel 06/22/16 Range/Units 06:28 Sodium 135 L (136-145) mEq/L Potassium 4.1 (3.5-4.5) mEq/L Chloride 105 (98-109) mEq/L Carbon Dioxide 22 (19-29) mEq/L BUN 9 (8-26) mg/dL Creatinine 0.68 L (0.72-1.25) mg/dL Glucose 160 H (70-99) mg/dL Calcium 8.6 (8.6-10.8) mg/dL Total Bilirubin 0.8 (0.2-1.2) mg/dL AST 38 H (5-34) Units/L ALT 53 (0-55) Units/L Alkaline Phosphatase 68 (38-126) Units/L Albumin 2.8 L (3.5-5.0) g/dL - VTE Documentation of Mechanical Device: Intermittent pneumatic compression device Consult Discharge Plan - Plan Referrals: Leslye Alves [Primary Care Provider] - - Attending Attestation I examined this patient and my medical decision-making was reviewed with the CASINO CAGE MANAGER/PA/Advanced Practice Nurse/Resident Physician. I agree with the documented findings, disposition and treatment plan as described except to the extent set forth below. I reviewed the above assessment and plan. Decreased lower abdominal pain. No nausea or vomiting. Noted rising WBC. Agree with ID consultation. Continue to follow CBC. Abdominal drains in place and functioning.
[2016-06-22] MEDS ORDERED: Clinimix E 5%-15% SOLUTION 2,000 ML with MVI, adult with vitamin K 10 ML IVC SCH (17:00)
[2016-06-22] MEDS ORDERED: Clinimix E 5%-15% SOLUTION 2,000 ML, Amino Acids 10% 0 ML with MVI, adult with vitami... IVC SCH (17:00)
[2016-06-22] MEDS: MOM Conc 10 ML UD.LIQ PO PRN (21:18)
[2016-06-23] MEDS: GuaiFENesin/Codeine Oral Soln 5 ML UDC PO SCH ×4 (00:17→18:21)
[2016-06-23] MEDS: Ondansetron 4 MG/2 ML VIAL IVP PRN ×3 (00:17→17:12)
[2016-06-23] MEDS: *HR* HYDROmorphone (PF) 1 MG/ML SYRINGE IVP PRN ×8 (01:57→20:33)
[2016-06-23] MEDS: Acetylcysteine 10% 2 ML INHSOL IH SCH ×4 (04:11→23:22)
[2016-06-23] MEDS: Ipratropium/Albuterol Neb 3 ML IH SCH ×4 (04:11→23:20)
[2016-06-23] MEDS: Piperacillin/Tazobactam 3.375 GM in D5% in Water (Mini-Bag+) 100 ML IVPB SCH ×3 (04:48→20:34)
[2016-06-23 05:07] LABS: Basophils # 0.1 K/mcL (0.0-0.2); Basophils % 0.7 %; Eosinophils # 0.3 K/mcL (0.0-0.6); Eosinophils % 1.8 %; Hematocrit 40.5 % (37.5-50.1); Hemoglobin 13.8 g/dL (12.9-16.9); Immature Granulocytes % 7.8 % (0-4); Lymphocytes # 1.8 K/mcL (0.6-4.6); Lymphocytes % 10.4 %; Mean Corpuscular HGB Conc 34.1 g/dL (31.6-35.5); Mean Corpuscular Hemoglobin 29.7 pg (28.0-33.3); Mean Corpuscular Volume 87.1 fL (83.0-100.0); Mean Platelet Volume 10.7 fL (9.4-12.4); Monocytes # 1.8 K/mcL (0.0-1.3); Monocytes % 10.2 %; Platelet Count 247 K/mcL (140-400); Red Blood Count 4.65 M/mcL (4.19-5.50); Red Cell Distribution Width 12.8 % (11.5-14.5); Segmented Neutrophils % 69.1 %
[2016-06-23 05:19] LABS: BUN/Creatinine Ratio 16 (6-26); Blood Urea Nitrogen 11 mg/dL (8-26); Carbon Dioxide 21 mEq/L (19-29); Chloride 104 mEq/L (98-109); Glucose 118 mg/dL (70-99); Osmolality,Calculated 280 (280-300); Potassium 4.4 mEq/L (3.5-4.5); Sodium 135 mEq/L (136-145); eGFR For African Americans > 60 (> 60); eGFR For Non-African Americans > 60 (> 60)
[2016-06-23 06:00] LABS: Platelet Estimate Normal (Normal); Reactive Lymphocytes Present (Not Present)
[2016-06-23] MEDS: *HR* Heparin 5,000 UNIT/ML VIAL SQ SCH ×2 (06:11→15:18)
--- NOTE | 2016-06-23 06:52 | Venous Imaging Report ---
LE Venous Duplex Patient Name:Kenney Sanchez Order Number:[id number] Procedure Date:06/22/2016 Date:1960Age:56 yrs Gender:Male Location:[facility] Room #: 3A33 Body And Frame Man:Kandy Michael RDCS Referring MD:Elsa Jung CNP developer prover upholstering:Leslye Alves CNP Reading MD:Sam Pal MD Primary Indications:R/O DVT Secondary Indications: Impressions: Normal right lower extremity deep venous exam. Acute superficial venous thrombosis is present in the right lesser saphenous vein. Normal left lower extremity deep and superficial venous exam. Recommendations: Test completed on 06/22/2016 at 8:08:00 pm. Critical findings reported to Pt Moni MAHMOOD by phone at 8:30:00 pm on 06/22/2016 by Kandy Michael RDCS. Findings Venous Duplex Results: Right: Venous imaging of the lower extremity reveals full patency and normal vessel compressibility of the right distal iliac, right common femoral, right superficial femoral, right popliteal, right posterior tibial, right peroneal and right great saphenous. Doppler signals in the evaluated veins were normal. There is an acute occlusive thrombus seen in the right lesser saphenous. It demonstrates an incompressible vein. Flow was continuous and it did not augment. Left: Venous imaging of the lower extremity reveals full patency and normal vessel compressibility of the left distal iliac, left common femoral, left superficial femoral, left popliteal, left posterior tibial, left peroneal, left great saphenous and left lesser saphenous. Doppler signals in the evaluated veins were normal. Prior Study: No prior study available for comparison. Lower Extremity Venous Duplex Side Vein Compress Spontaneous Flow Augment Diameter (cm) Depth (cm) Right Distal Iliac Normal Yes Phasic Yes Right Common Femoral Normal Yes Phasic Yes Right Superficial Femoral Normal Yes Phasic Yes Right Popliteal Normal Yes Phasic Yes Right Posterior Tibial Normal Yes Phasic Yes Right Peroneal Normal Yes Phasic Yes Right Great Saphenous Normal Yes Phasic Yes Right Lesser Saphenous None no Continuous no Left Distal Iliac Normal Yes Phasic Yes Left Common Femoral Normal Yes Phasic Yes Left Superficial Femoral Normal Yes Phasic Yes Left Popliteal Normal Yes Phasic Yes Left Posterior Tibial Normal Yes Phasic Yes Left Peroneal Normal Yes Phasic Yes Left Great Saphenous Normal Yes Phasic Yes Left Lesser Saphenous Normal Yes Phasic Yes Updated by Sam Pal MD on 06/23/2016 6:47:06 AM electronically signed on 06/23/2016 6:47:29 AM with status of Final
[2016-06-23] MEDS: Pantoprazole 40 MG VIAL IVP SCH ×2 (09:46→20:33)
[2016-06-23] MEDS: Nicotine 14 MG PATCH.TD24 TD SCH (12:49)
--- NOTE | 2016-06-23 14:01 | General Surgery Progress Note ---
Date of Encounter: 06/23/16 Time of Encounter: 13:45 - Assessment and Plan (1) Perforation of sigmoid colon due to diverticulitis Current Visit: Yes Status: Acute Continue with conservative therapy at this time including: Advance to soft diet with chopped meat CT scan of abdomen/pelvis yesterday shows significant improvement IV antibiotics- Zosyn s/p IR drainage of abscess fluid collections X 2 on 06/17 Cultures- e coli Continue TPN- may decrease to 50ml/hour Supportive care/pain control Serial abdominal exams Repeat am labs Positive BM with stool softner and MOM ID consult for increasing WBC count with bands- await recommendations Lactic acid- 1.9 (2) Hypertension Current Visit: No Status: Chronic Stable Continue metoprolol and hydralazine prn Qualifiers: Hypertension type: essential hypertension Qualified Code(s): I10 - Essential (primary) hypertension (3) Tachycardia Current Visit: Yes Status: Acute Stable (4) Cough Current Visit: Yes Status: Acute Improved Continue mucomust and aerosols (5) Leukocytosis Current Visit: Yes Status: Resolved Stable 13>10.2>8>9.7>10.9>14.4>16.8>17.4 with no bands noted Continue IV antibiotics- Zosyn Add diflucan Blood cultures X2 Urine culture- no growth Dopplers bilateral lower extremities- superficial clot lesser saphenous right lower extremity CXR- no acute abnormalities Repeat am labs Qualifiers: Leukocytosis type: unspecified Qualified Code(s): D72.829 - Elevated white blood cell count, unspecified (6) Tobacco abuse Current Visit: No Status: Chronic Smoking cessation education Nicotine patch (7) Urinary retention Current Visit: Yes Status: Acute D/C metz catheter Patient started on flomax 06/19 (8) Constipation Current Visit: Yes Status: Acute Continue colace BID Continue milk of magnesia prn Qualifiers: Constipation type: unspecified constipation type Qualified Code(s): K59.00 - Constipation, unspecified (9) DVT prophylaxis Current Visit: Yes Status: Acute Continue heparin 5,000 units SQ TID daily for DVT prophylaxis Right lesser saphenous vein with superfical clot Subjective Patient reports: feels better, still having pain, pain is less, tolerating liquids well, flatus, bowel movement, afebrile, other (Out of bed to chair) Objective Vital Signs - Last 8 Hours Temp Pulse Resp BP Pulse Ox 06/23/16 13:27 98.0 F 109 16 115/79 94 L 06/23/16 11:00 97.4 F L 115 18 117/71 91 L 06/23/16 08:56 98.1 F 111 18 119/80 96 06/23/16 07:00 98.1 F 101 18 104/65 92 L Intake and Output 06/22/16 06/23/16 06/23/16 23:59 07:59 15:59 Intake Total 1352 / 1352 350 / 350 440 / 440 Output Total 1104 / 1104 1650 / 1650 875 / 875 Balance 248 / 248 -1300 / -1300 -435 / -435 Intake: IV Fluids 852 / 852 350 / 350 100 / 100 Clinimix E 5%-15% 752 / 752 SOLUTION 2,000 ML @ 83.3 mls/hr IVC .Q24H SY[facility] with M.v.i. Adult 10 ml Rx#: [id number] Intralipid 20% 250 ML @ 250 / 250 21 mls/hr IVPB MoWeFr@ 1700 [facility] Rx#:[id number] Zosyn 3.375 GM In 100 / 100 100 / 100 100 / 100 Dextrose 5% (Minibag+) 100 ML 100 ML @ 25 mls/hr IVPB Q8H [facility] Rx#: [id number] Oral 500 / 500 340 / 340 Output: Urine 200 / 200 Emesis 50 / 50 Catheter 1100 / 1100 1450 / 1450 825 / 825 Wound Drainage 4 / 4 0 / 0 0 / 0 Left Buttock 2 / 2 0 / 0 0 / 0 Right Abdomen 2 / 2 0 / 0 0 / 0 Other: Meal Lunch Percent of Meal Consumed 100% # Bowel Movements 0 0 Weight 95.073 kg Blood Glucose* 120 125 128 Patient Weight 06/23/16 23:59 Weight 95.073 kg - General physical appearance well developed, no distress - Eyes normal ocular movement - ENT normal mucosa, atraumatic, normocephalic - Neck Neck exam: trachea midline - Respiratory normal respiratory effort, clear to auscultation - Cardiovascular Cardiovascular exam: Present: tachycardia - Abdomen Abdomen: Present: bowel sounds present, soft, tender (minimal), wound (Pigtail drains with minimal amount of serous drainage noted) Abdominal Tenderness: RLQ, suprapubic - Genitourinary other (metz catheter to SD with clear, yellow urine) - Neurologic CN 2-12 grossly intact - Psychiatric oriented to time, oriented to person, oriented to place, speech is normal, memory intact - Labs 06/23/16 04:50 06/23/16 04:50 Diabetes panel 06/23/16 Range/Units 04:50 Sodium 135 L (136-145) mEq/L Potassium 4.4 (3.5-4.5) mEq/L Chloride 104 (98-109) mEq/L Carbon Dioxide 21 (19-29) mEq/L BUN 11 (8-26) mg/dL Creatinine 0.70 L (0.72-1.25) mg/dL Glucose 118 H (70-99) mg/dL Calcium 8.0 L (8.6-10.8) mg/dL Calcium panel 06/23/16 Range/Units 04:50 Calcium 8.0 L (8.6-10.8) mg/dL Pituitary panel 06/23/16 Range/Units 04:50 Sodium 135 L (136-145) mEq/L Potassium 4.4 (3.5-4.5) mEq/L Chloride 104 (98-109) mEq/L Carbon Dioxide 21 (19-29) mEq/L BUN 11 (8-26) mg/dL Creatinine 0.70 L (0.72-1.25) mg/dL Glucose 118 H (70-99) mg/dL Calcium 8.0 L (8.6-10.8) mg/dL Adrenal panel 06/23/16 Range/Units 04:50 Sodium 135 L (136-145) mEq/L Potassium 4.4 (3.5-4.5) mEq/L Chloride 104 (98-109) mEq/L Carbon Dioxide 21 (19-29) mEq/L BUN 11 (8-26) mg/dL Creatinine 0.70 L (0.72-1.25) mg/dL Glucose 118 H (70-99) mg/dL Calcium 8.0 L (8.6-10.8) mg/dL - Imaging Additional Studies: Chest X-Ray 06/22/16 09:59 IMPRESSION: 1. No acute cardiopulmonary disease. 2. Right upper extremity PICC tip terminates at the cavoatrial junction. D/ / 06/22/2016 10:38:54 Doris Paniagua MD / bcarter Interpreting Provider: Doris Paniagua MD - VTE Documentation of Mechanical Device: Intermittent pneumatic compression device Consult Discharge Plan - Plan Referrals: Leslye Alves [Primary Care Provider] - - Attending Attestation I examined this patient and my medical decision-making was reviewed with the WAREHOUSE HELPER/PA/Advanced Practice Nurse/Resident Physician. I agree with the documented findings, disposition and treatment plan as described except to the extent set forth below.
--- NOTE | 2016-06-23 15:19 | Infectious Disease Consult ---
Date of Encounter: 06/23/16 Time of Encounter: 15:14 Assessment and Plan (1) Sepsis Status: Acute Assessment and plan: The patient had two SIRS criteria on admission. Likely secondary to perforated diverticulum and intra-abdominal abscesses. Improved initially after drain placement, but now has worsening leukocytosis and persistent tachycardia. No blood cultures drawn on admission.Blood cultures drawn 06/22/16 are pending x 2 sets (one from peripheral, one from PICC line). Cause of persistent leukocytosis unclear. There is a loculated fluid collection noted on the most recent CT of the abdomen and pelvis that is decreased in size , but concern that the antibiotics are not able to adequately penetrate the abscess due to the fact that it is loculated. CXR normal. Urine culture negative. LFTs normal. No evidence of pancreatitis on CT. No symptoms of skin or soft tissue infection. No symptoms of URI/sinusitis. No symptoms of RIGHT OF WAY CUTTER infection. No persistent diarrhea to indicate C. diff. Qualifiers: Sepsis type: Escherichia coli Qualified Code(s): A41.51 - Sepsis due to Escherichia coli [E. coli] (2) Intra-abdominal fluid collection Status: Acute Assessment and plan: Secondary to perforated colon. CT of the abdomen and pelvis 06/16/16 showed decreased extra-luminal gas and multiple focal fluid collections consistent with abscesses. Status post 10Fr pigtail drain placement in the presacral and central mesenteric collections. Culture positive for cat-sensitive E. coli. Treated with Zosyn (day 7 since drain placement). Repeat CT of the abdomen and pelvis 06/21/16 showed persistent loculated fluid collection anterior to the right psoas muscle, decreased in size. No new fluid collections were noted. Concerned that although the loculated fluid collection is decreased in size, there may still be a source control issue. May need to consider drainage of this abscess if possible. Will discuss with the surgery team. Continue Zosyn 3.375 grams IV Q8H. Agree with adding Diflucan, but would administer loading dose of 400mg IV x 1 dose, then continue maintenance dose of 200mg IV daily. Continue to monitor WBC. If patient continues to have worsening leukocytosis, may consider adding Vancomycin and/or switching to Meropenem. Duration of treatment depends on the clinical picture. Monitor renal function and dose-adjust antibiotics. (3) Perforated diverticulum Status: Acute Assessment and plan: CT of the abdomen 06/13/16 showed acute sigmoid colon diverticulitis with perforation and extra-luminal gas. (4) Diverticulitis Status: Acute Qualifiers: Diverticulitis site: large intestine Diverticulitis bleeding: without bleeding Diverticulitis complication: with perforation Qualified Code(s): K57.20 - Diverticulitis of large intestine with perforation and abscess without bleeding (5) Hypertension Status: Chronic Qualifiers: Hypertension type: essential hypertension Qualified Code(s): I10 - Essential (primary) hypertension (6) Tobacco abuse Status: Chronic (7) Urinary retention Status: Acute Assessment and plan: Status post metz placement. (8) Constipation Status: Acute Assessment and plan: Patient reports relief with milk of magnesia. Management per the primary team. Qualifiers: Constipation type: unspecified constipation type Qualified Code(s): K59.00 - Constipation, unspecified (9) Acute superficial venous thrombosis of right lower extremity Status: Acute Infectious Disease HPI - Data of Consult Patient: new to practice Consult date: 06/23/16 Requesting Physician: Loren Jeffrey MD Primary Care Provider: Leslye Alves - Consult Narrative Reason for consult: Leukocytosis History of present illness: The patient is a 56-year-old male with past medical history of hypertension, hyperlipidemia, kidney stones, and diverticulitis. The patient was admitted to the hospital June 13 for perforated diverticulum. We are consulted June 23 for further evaluation and treatment recommendations regarding persistent leukocytosis. She is a 56-year-old male with past medical history as stated above. The patient presented to the emergency department with complaints of a 24-hour onset of severe right lower quadrant pain that radiated to his right groin and testicle and right flank. Nausea with vomiting. Upon arrival, the patient was afebrile, but he was tachycardic and had a elevated white blood cell count. Basic metabolic panel was normal. CT the abdomen and pelvis showed acute sigmoid colon diverticulitis with perforation with extraluminal gas. The patient received a dose of IV Cipro in the emergency department and was admitted to the general surgery service. The patient opted for conservative therapy with antibiotics and bowel rest. The patient's white blood cell count improved, but he was still complaining of some pain. He underwent a repeat CT the abdomen and pelvis that showed a decrease in extraluminal gas, but revealed multiple focal fluid collections consistent with abscesses. The patient went to interventional radiology and had 210 German pigtail drains inserted, 1 in the presacral and one in the central mesenteric fluid collections. The patient's white blood cell, continue to decrease until June 19 when it began to go back up. On June 21, the white patient's white blood cell count went up to 14.4 thousand. Today is up to 17.[address] the abdomen and pelvis on June 21 showed persistent loculated fluid collection anterior to the right psoas muscle, decreased in size from previous study. There are no new fluid collections, there are findings consistent with persistent diverticulitis. Currently, the patient is on IV Zosyn, day 7 since insertion of the pigtail drains. We've been asked to evaluate and make further recommendations. My exam today, the patient endorses the history as stated above. He denies any fevers or chills or rigors, but he does report some sweats, but states that he has this all the time. He reports chronic neck, bilateral shoulder, and upper back pain. He denies any congestion, earache, or sore throat. He does report a cough productive of some green/yellow sputum and some mild chronic shortness of breath. He denies pain. He does report some abdominal pain, worse in the lower quadrants that is nonradiating. He reports some nausea with vomiting when he had to drink oral contrast. He does report some persistent nausea today, but states he been able to eat all of his meals. He denies pain in any of his extremities. He denies oral thrush or skin lesions. CC: Loren Jeffrey MD Past Med Surg Social Fam HX - Past Medical History Attestation: Yes The following information was validated with the patient. Source: patient, old records reviewed, nursing notes reviewed Medical history: kidney stones, other (DDD cervical spine.) Psychiatric history: no psych history - Past Surgical History Surgical History: other - Social History Smoking Status: Current every day smoker Smokeless Tobacco Status: Yes (vapor pen) Alcohol use: occasionally Drug use: none Occupational status: employed Current living situation: Home - Independent Activity Level: Independent ambulation Recent Out of Country Travel Within the Last 8 Weeks: No Exposure or Possible Exposure to Illness During Travel: No - Family History Grandmother History Unknown: Yes Infectious Disease-CN:Meds Lisinopril/Hydrochlorothiazide [Zestoretic 20-25 mg Tablet] 1 each PO DAILY [History] Amlodipine [Norvasc] 5 mg PO DAILY 06/13/16 [History] Gabapentin [Neurontin] 300 mg PO BID 06/13/16 [History] HYDROcodone/Acet 5/325 mg [[place] 5-325 mg] 1 tab PO TID 06/13/16 [History] [place]-3S/Dha/Epa/Fish Oil [Fish Oil 1,200 mg Softgel] 1 each PO DAILY 06/13/16 [ History] Psyllium Husk [Metamucil] 0.52 gm PO 2XW 06/13/16 [History] Allergies No Known Allergies Allergy (Verified 03/25/15 15:38) All systems: reviewed and no additional remarkable complaints except as stated Exam - Constitutional Vitals: Temp Pulse Resp BP Pulse Ox 98.0 F 109 16 115/79 94 L 06/23/16 13:27 06/23/16 13:27 06/23/16 13:27 06/23/16 13:27 06/23/16 13:27 General appearance: cooperative, no acute distress, obese - Head Head exam: Present: atraumatic, normal inspection, normocephalic - Eye Eye exam: Present: EOMI, normal appearance, PERRL Pupils: Present: normal accommodation - ENT ENT exam: Present: mucous membranes moist - Neck Neck exam: Present: normal inspection - Respiratory Respiratory exam: Present: CTAB. Absent: rales, respiratory distress, rhonchi, wheezes - Cardiovascular Cardiovascular exam: Present: RRR, +S1, +S2 - GI/Abdominal GI/Abdominal exam: Present: distended, normal bowel sounds, soft, tenderness ( RLQ, suprapubic) Additional comments: LAXMI drain to the RLQ abdomen with small amount of serous dark brown drainage. LAXMI drain noted to the left lateral abdomen with moderate amount of serous dark brown drainage. Metz catheter noted to be draining clear yellow urine. - Extremities Exam Extremities exam: Present: normal inspection. Absent: joint swelling, pedal edema, tenderness - Back Exam Back exam: Present: normal inspection. Absent: paraspinal tenderness, vertebral tenderness - Neurological Exam Neurological exam: Present: alert, oriented X3, no focal deficits - Psychiatric Psychiatric exam: Present: normal affect, normal mood - Skin Skin exam: Present: dry, intact, normal color, warm Infectious Disease CN: Results - Labs CBC & Chem 7: 06/24/16 03:49 06/24/16 03:49 Cultures: Cultures 06/22/16 11:05 Urine Culture - Final Urine,Catheterized No growth. 06/17/16 15:48 Anaerobic Culture - Preliminary Abdomen At this time, no anaerobic growth is present. The culture will be finalized after 5 days of incubation. 06/17/16 15:48 Anaerobic Culture - Preliminary Other-Specify in Comments At this time, no anaerobic growth is present. The culture will be finalized after 5 days of incubation. 06/17/16 15:48 Body Fluid Culture - Final Other-Specify in Comments Escherichia coli 06/17/16 15:48 Body Fluid Culture - Final Peritoneal Fluid - VTE Documentation of Mechanical Device: Intermittent pneumatic compression device Consult Discharge Plan - Plan Referrals: Leslye Alves [Primary Care Provider] -
[2016-06-23] MEDS: Fluconazole 200 MG/100 ML 200 MG/100 ML BAG IVPB SCH (15:29)
[2016-06-23] MEDS ORDERED: Clinimix E 5%-15% SOLUTION 2,000 ML with MVI, adult with vitamin K 10 ML IVC SCH (17:00)
[2016-06-24] MEDS: GuaiFENesin/Codeine Oral Soln 5 ML UDC PO SCH ×4 (00:05→17:23)
[2016-06-24] MEDS: *HR* HYDROmorphone (PF) 1 MG/ML SYRINGE IVP PRN ×8 (00:05→20:54)
[2016-06-24] MEDS: *HR* Heparin 5,000 UNIT/ML VIAL SQ SCH ×4 (00:05→22:12)
[2016-06-24 04:11] LABS: Hematocrit 41.2 % (37.5-50.1); Hemoglobin 13.6 g/dL (12.9-16.9); Mean Corpuscular Hemoglobin 28.6 pg (28.0-33.3); Mean Corpuscular Volume 86.6 fL (83.0-100.0); Mean Platelet Volume 10.6 fL (9.4-12.4); Platelet Count 361 K/mcL (140-400); Red Blood Count 4.76 M/mcL (4.19-5.50); Red Cell Distribution Width 12.7 % (11.5-14.5)
[2016-06-24 04:13] LABS: BUN/Creatinine Ratio 16 (6-26); Blood Urea Nitrogen 12 mg/dL (8-26); Calcium 8.8 mg/dL (8.6-10.8); Carbon Dioxide 22 mEq/L (19-29); Chloride 102 mEq/L (98-109); Glucose 106 mg/dL (70-99); Magnesium 2.1 mg/dL (1.6-2.6); Osmolality,Calculated 280 (280-300); Phosphorous 3.7 mg/dL (2.3-4.7); Potassium 4.6 mEq/L (3.5-4.5); Sodium 135 mEq/L (136-145); eGFR For African Americans > 60 (> 60); eGFR For Non-African Americans > 60 (> 60)
[2016-06-24 04:43] LABS: Eosinophils # 0.4 K/mcL (0.0-0.6); Lymphocytes # 1.1 K/mcL (0.6-4.6); Monocytes # 0.7 K/mcL (0.0-1.3); Neutrophils # 15.6 K/mcL (1.6-8.9); Platelet Estimate Normal (Normal)
[2016-06-24 04:44] LABS: Polychromasia 1+ (Not Present); Reactive Lymphocytes Present (Not Present)
[2016-06-24] MEDS: Ipratropium/Albuterol Neb 3 ML IH SCH ×5 (04:48→21:15)
[2016-06-24] MEDS: Acetylcysteine 10% 2 ML INHSOL IH SCH ×4 (04:48→21:15)
[2016-06-24] MEDS: Piperacillin/Tazobactam 3.375 GM in D5% in Water (Mini-Bag+) 100 ML IVPB SCH ×3 (05:35→20:53)
[2016-06-24] MEDS: Ondansetron 4 MG/2 ML VIAL IVP PRN (06:42)
[2016-06-24] MEDS: Pantoprazole 40 MG VIAL IVP SCH ×2 (09:19→20:53)
[2016-06-24] MEDS: Fluconazole 200 MG/100 ML 200 MG/100 ML BAG IVPB SCH (09:27)
[2016-06-24] MEDS ORDERED: Fluconazole 200 MG/100 ML 200 MG/100 ML BAG IVPB ONE (10:30)
[2016-06-24] MEDS: Nicotine 14 MG PATCH.TD24 TD SCH (11:12)
[2016-06-24] MEDS: MOM Conc 10 ML UD.LIQ PO PRN (11:23)
--- NOTE | 2016-06-24 13:38 | General Surgery Progress Note ---
Date of Encounter: 06/24/16 Time of Encounter: 13:30 - Assessment and Plan (1) Perforation of sigmoid colon due to diverticulitis Current Visit: Yes Status: Acute Continue with conservative therapy at this time including: Continue soft diet with chopped meat IV antibiotics- Zosyn s/p IR drainage of abscess fluid collections X 2 on 06/17 Cultures- e coli Discontinue TPN Supportive care/pain control Repeat am labs ID consult for increasing WBC count with bands- Load with diflucan 400mg today and then 200mg daily (given 200mg yesterday as well) Consider CT in the next 48 hours if persistent WBC (2) Hypertension Current Visit: No Status: Chronic Stable Continue metoprolol and hydralazine prn Qualifiers: Hypertension type: essential hypertension Qualified Code(s): I10 - Essential (primary) hypertension (3) Tachycardia Current Visit: Yes Status: Acute Stable (4) Cough Current Visit: Yes Status: Resolved Improved Continue mucomust and aerosols (5) Leukocytosis Current Visit: Yes Status: Resolved Stable 13>10.2>8>9.7>10.9>14.4>16.8>17.4>18.1 with 6 with bands noted Continue IV antibiotics- Zosyn Add diflucan (400mg today and then 200mg daily, patient was given 200mg yesterday as well) Blood cultures X2- no growth Urine culture- no growth Dopplers bilateral lower extremities- superficial clot lesser saphenous right lower extremity CXR- no acute abnormalities Repeat am labs Qualifiers: Leukocytosis type: unspecified Qualified Code(s): D72.829 - Elevated white blood cell count, unspecified (6) Tobacco abuse Current Visit: No Status: Chronic Smoking cessation education Nicotine patch (7) Urinary retention Current Visit: Yes Status: Acute Voiding without difficulty Patient started on flomax 06/19 (8) Constipation Current Visit: Yes Status: Acute Continue colace BID Continue milk of magnesia prn Qualifiers: Constipation type: unspecified constipation type Qualified Code(s): K59.00 - Constipation, unspecified (9) DVT prophylaxis Current Visit: Yes Status: Acute Continue heparin 5,000 units SQ TID daily for DVT prophylaxis Right lesser saphenous vein with superfical clot Subjective Patient reports: no new complaints, feels better, still having pain, pain is less, tolerating a regular diet (soft diet), voiding w/o difficulty, flatus, no bowel movement (last BM 06/20), afebrile Objective Vital Signs - Last 8 Hours Temp Pulse Resp BP Pulse Ox 06/24/16 11:42 97.6 F 108 18 146/88 92 L 06/24/16 10:25 18 97 06/24/16 09:30 98.3 F 104 18 108/72 96 06/24/16 07:25 98.0 F 113 18 125/71 95 Intake and Output 06/23/16 06/24/16 06/24/16 23:59 07:59 15:59 Intake Total 425 / 425 250 / 250 200 / 200 Output Total 1325 / 1325 1250 / 1250 1200 / 1200 Balance -900 / -900 -1000 / -1000 -1000 / -1000 Intake: IV Fluids 200 / 200 100 / 100 200 / 200 Diflucan 200 MG/100 ML 100 / 100 100 / 100 200 mg In 100 ml @ 100 mls/hr IVPB DAILY [facility] Rx# :[id number] Zosyn 3.375 GM In 100 / 100 100 / 100 100 / 100 Dextrose 5% (Minibag+) 100 ML 100 ML @ 25 mls/hr IVPB Q8H [facility] Rx#: [id number] Oral 225 / 225 150 / 150 Output: Urine 725 / 725 1250 / 1250 1185 / 1185 Catheter 600 / 600 Wound Drainage 0 / 0 0 / 0 15 / 15 Left Buttock 0 / 0 0 / 0 10 / 10 Right Abdomen 0 / 0 0 / 0 5 / 5 Other: Meal Dinner Breakfast Percent of Meal Consumed 60% 100% # Bowel Movements 0 0 Blood Glucose* 136 120 135 - General physical appearance well developed, no distress - Eyes normal ocular movement - ENT normal mucosa, atraumatic, normocephalic - Neck Neck exam: trachea midline - Respiratory normal respiratory effort, clear to auscultation - Cardiovascular Cardiovascular exam: Present: RRR - Abdomen Abdomen: Present: bowel sounds present, soft, tender (improving), wound ( Pigtail drains to RLQ and left buttock with small amount of serous drainage noted) Abdominal Tenderness: suprapubic - Integumentary no rash, no growths - Neurologic CN 2-12 grossly intact - Psychiatric oriented to time, oriented to person, oriented to place, speech is normal, memory intact - Labs 06/24/16 03:49 06/24/16 03:49 Diabetes panel 06/24/16 Range/Units 03:49 Sodium 135 L (136-145) mEq/L Potassium 4.6 H (3.5-4.5) mEq/L Chloride 102 (98-109) mEq/L Carbon Dioxide 22 (19-29) mEq/L BUN 12 (8-26) mg/dL Creatinine 0.76 (0.72-1.25) mg/dL Glucose 106 H (70-99) mg/dL Calcium 8.8 (8.6-10.8) mg/dL Calcium panel 06/24/16 Range/Units 03:49 Calcium 8.8 (8.6-10.8) mg/dL Phosphorus 3.7 (2.3-4.7) mg/dL Pituitary panel 06/24/16 Range/Units 03:49 Sodium 135 L (136-145) mEq/L Potassium 4.6 H (3.5-4.5) mEq/L Chloride 102 (98-109) mEq/L Carbon Dioxide 22 (19-29) mEq/L BUN 12 (8-26) mg/dL Creatinine 0.76 (0.72-1.25) mg/dL Glucose 106 H (70-99) mg/dL Calcium 8.8 (8.6-10.8) mg/dL Adrenal panel 06/24/16 Range/Units 03:49 Sodium 135 L (136-145) mEq/L Potassium 4.6 H (3.5-4.5) mEq/L Chloride 102 (98-109) mEq/L Carbon Dioxide 22 (19-29) mEq/L BUN 12 (8-26) mg/dL Creatinine 0.76 (0.72-1.25) mg/dL Glucose 106 H (70-99) mg/dL Calcium 8.8 (8.6-10.8) mg/dL - VTE Documentation of Mechanical Device: Intermittent pneumatic compression device Consult Discharge Plan - Plan Referrals: Leslye Alves [Primary Care Provider] - - Attending Attestation I examined this patient and my medical decision-making was reviewed with the SOCIAL STAFF WORKER/PA/Advanced Practice Nurse/Resident Physician. I agree with the documented findings, disposition and treatment plan as described except to the extent set forth below. I reviewed the physical exam and assessment with the nurse practitioner present. He states he feels somewhat better. Nausea. He did have a small bowel movement with magnesium citrate yesterday. Appreciate infectious disease consultation. Patient on Diflucan and will closely follow the white blood count. To consider repeating the CT scan if there is no improvement in the white count in the next 24-48 hours.
--- NOTE | 2016-06-24 13:41 | Infectious Disease Progress No ---
Date of Encounter: 06/24/16 Time of Encounter: 13:39 - Assessment and Plan (1) Sepsis Current Visit: Yes Status: Acute The patient had two SIRS criteria on admission. Likely secondary to perforated diverticulum and intra-abdominal abscesses. Improved initially after drain placement, but now has worsening leukocytosis and persistent tachycardia. No blood cultures drawn on admission.Blood cultures drawn 06/22/16 are pending x 2 sets (one from peripheral, one from PICC line). Cause of persistent leukocytosis unclear. There is a loculated fluid collection noted on the most recent CT of the abdomen and pelvis that is decreased in size and relatively small, but concerned that the antibiotics are not able to adequately penetrate the abscess due to the fact that it is loculated. CXR normal. Urine culture negative. LFTs normal. No evidence of pancreatitis on CT. No symptoms of skin or soft tissue infection. No symptoms of URI/sinusitis. 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 No persistent diarrhea to indicate C. diff. Qualifiers: Qualified Code(s): A41.51 - Sepsis due to Escherichia coli [E. coli] (2) Intra-abdominal fluid collection Current Visit: Yes Status: Acute Secondary to perforated colon. CT of the abdomen and pelvis 06/16/16 showed decreased extra-luminal gas and multiple focal fluid collections consistent with abscesses. Status post 10Fr pigtail drain placement in the presacral and central mesenteric collections. Culture positive for cat-sensitive E. coli. Treated with Zosyn (day 8 since drain placement). Repeat CT of the abdomen and pelvis 06/21/16 showed persistent loculated fluid collection anterior to the right psoas muscle, decreased in size. No new fluid collections were noted. Concerned that although the loculated fluid collection is decreased in size, there may still be a source control issue. May need to consider drainage of this abscess if possible. Discussed with MELBA Ventura, of the surgery team. Continue Zosyn 3.375 grams IV Q8H. Continue Fluconazole 200mg IV daily. Continue to monitor WBC. If patient continues to have worsening leukocytosis, may consider adding Vancomycin and/or switching to Meropenem. Avoid making too many changes at once. Consider repeating imaging in the next day or two to re-evaluate. Duration of treatment depends on the clinical picture. Monitor renal function and dose-adjust antibiotics. (3) Perforated diverticulum Current Visit: Yes Status: Acute CT of the abdomen 06/13/16 showed acute sigmoid colon diverticulitis with perforation and extra-luminal gas. (4) Diverticulitis Current Visit: Yes Status: Acute Qualifiers: Qualified Code(s): K57.20 - Diverticulitis of large intestine with perforation and abscess without bleeding (5) Urinary retention Current Visit: Yes Status: Acute Resolved. (6) Constipation Current Visit: Yes Status: Acute Patient reports relief with milk of magnesia. Management per the primary team. Qualifiers: Qualified Code(s): K59.00 - Constipation, unspecified (7) Acute superficial venous thrombosis of right lower extremity Current Visit: Yes Status: Acute (8) Tobacco abuse Current Visit: No Status: Chronic (9) Hypertension Current Visit: No Status: Chronic Qualifiers: Qualified Code(s): I10 - Essential (primary) hypertension - Subjective Interval history: Patient seen and examined. No acute events noted overnight. Patient resting quietly in bed, using IS. States he feels about the same today, maybe a little better. Denies fevers or chills. Denies chest pain. Reports some mild shortness of breath and cough. Denies nausea, vomiting, or diarrhea. Reports small BM yesterday. Complains of mild abdominal pain. Denies back or extremity pain. Denies oral thrush or new skin lesions. Infect Dis PN-Objective Data - Labs CBC & Chem 7: 06/24/16 03:49 06/24/16 03:49 Labs: Laboratory Results - last 24 hr 06/23/16 06/23/16 06/23/16 15:52 18:52 23:54 WBC RBC Hgb Hct MCV MCH MCHC RDW Plt Count MPV Seg Neutrophils % Band Neutrophils % Lymphocytes % Monocytes % Eosinophils % Metamyelocytes % Neutrophils # Lymphocytes # Monocytes # Eosinophils # Reactive Lymphocytes Platelet Estimate Polychromasia Sodium Potassium Chloride Carbon Dioxide BUN Creatinine Est GFR ( Amer) Est GFR (Non-Af Amer) BUN/Creatinine Ratio Glucose POC Glucose 124 H 123 H 136 H Calculated Osmolality Calcium Phosphorus Magnesium 06/24/16 06/24/16 06/24/16 03:49 03:49 04:24 WBC 18.1 H RBC 4.76 Hgb 13.6 Hct 41.2 MCV 86.6 MCH 28.6 MCHC 33.0 RDW 12.7 Plt Count 361 MPV 10.6 Seg Neutrophils % 80.0 Band Neutrophils % 6.0 H Lymphocytes % 6.0 Monocytes % 4.0 Eosinophils % 2.0 Metamyelocytes % 2.0 H Neutrophils # 15.6 H Lymphocytes # 1.1 Monocytes # 0.7 Eosinophils # 0.4 Reactive Lymphocytes Present A Platelet Estimate Normal Polychromasia 1+ A Sodium 135 L Potassium 4.6 H Chloride 102 Carbon Dioxide 22 BUN 12 Creatinine 0.76 Est GFR ( Amer) > 60 Est GFR (Non-Af Amer) > 60 BUN/Creatinine Ratio 16 Glucose 106 H POC Glucose 118 H Calculated Osmolality 280 Calcium 8.8 Phosphorus 3.7 Magnesium 2.1 06/24/16 06/24/16 07:30 11:37 WBC RBC Hgb Hct MCV MCH MCHC RDW Plt Count MPV Seg Neutrophils % Band Neutrophils % Lymphocytes % Monocytes % Eosinophils % Metamyelocytes % Neutrophils # Lymphocytes # Monocytes # Eosinophils # Reactive Lymphocytes Platelet Estimate Polychromasia Sodium Potassium Chloride Carbon Dioxide BUN Creatinine Est GFR ( Amer) Est GFR (Non-Af Amer) BUN/Creatinine Ratio Glucose POC Glucose 120 H 135 H Calculated Osmolality Calcium Phosphorus Magnesium Cultures: Cultures 06/22/16 10:08 Blood Culture - Preliminary Peripheral Central Cath, Picc No growth. 06/22/16 10:08 Blood Culture - Preliminary Peripheral Venipuncture No growth. 06/22/16 11:05 Urine Culture - Final Urine,Catheterized No growth. 06/17/16 15:48 Anaerobic Culture - Preliminary Abdomen At this time, no anaerobic growth is present. The culture will be finalized after 5 days of incubation. 06/17/16 15:48 Anaerobic Culture - Preliminary Other-Specify in Comments At this time, no anaerobic growth is present. The culture will be finalized after 5 days of incubation. 06/17/16 15:48 Body Fluid Culture - Final Other-Specify in Comments Escherichia coli 06/17/16 15:48 Body Fluid Culture - Final Peritoneal Fluid - Impressions Impressions Retroperitoneal Abscess Drainage 06/17/16 00:00 IMPRESSION: Successful CT guided placement of drainage catheters into fluid collections anterior to the rectum as well as in the low mid abdomen. D/ / Dylan Barber MD / Dylan Barber MD Interpreting Provider: Dylan Barber MD Retroperitoneal Abscess Drainage 06/17/16 00:00 IMPRESSION: Successful CT guided placement of drainage catheters into fluid collections anterior to the rectum as well as in the low mid abdomen. D/ / Dylan Barber MD / Dylan Barber MD Interpreting Provider: Dylan Barber MD Abdomen/Pelvis CT 06/21/16 10:15 IMPRESSION: 1. Interval placement of right lower quadrant and left parasacral percutaneous drains. There is no significant fluid collection surrounding these drains. There is a persistent loculated fluid collection anterior to the right psoas muscle, which has decreased in size since the prior examination. No new fluid collection. 2. Findings of sigmoid diverticulitis are improved, but persists. D/ / 06/21/2016 11:49:43 Mariza Red MD / Alissa Avalos Interpreting Provider: Mariza Red MD Chest X-Ray 06/22/16 09:59 IMPRESSION: 1. No acute cardiopulmonary disease. 2. Right upper extremity PICC tip terminates at the cavoatrial junction. D/ / 06/22/2016 10:38:54 Doris Paniagua MD / negrita Interpreting Provider: Doris Paniagua MD Exam - Constitutional Vitals: Temp Pulse Resp BP Pulse Ox 97.6 F 108 18 146/88 92 L 06/24/16 11:42 06/24/16 11:42 06/24/16 11:42 06/24/16 11:42 06/24/16 11:42 General appearance: cooperative, no acute distress, obese - Head Head exam: Present: atraumatic, normal inspection, normocephalic - Eye Eye exam: Present: EOMI, normal appearance, PERRL Pupils: Present: normal accommodation - ENT ENT exam: Present: mucous membranes moist - Neck Neck exam: Present: normal inspection - Respiratory Respiratory exam: Present: CTAB. Absent: rales, respiratory distress, rhonchi, wheezes - Cardiovascular Cardiovascular exam: Present: RRR, +S1, +S2 - GI/Abdominal GI/Abdominal exam: Present: distended, normal bowel sounds, soft, tenderness ( RLQ, suprapubic) Additional comments: LAXMI drain noted to the RLQ with small amount of serous drainage noted in the bulb. LAXMI drain noted to the left lateral abdomen/flank with small amount of serous drainage noted. - Extremities Exam Extremities exam: Present: normal inspection. Absent: joint swelling, pedal edema, tenderness - Neurological Exam Neurological exam: Present: alert, oriented X3, no focal deficits - Psychiatric Psychiatric exam: Present: normal affect, normal mood - Skin Skin exam: Present: dry, intact, normal color, warm - VTE Documentation of Mechanical Device: Intermittent pneumatic compression device Consult Discharge Plan - Plan Referrals: Leslye Alves [Primary Care Provider] -
[2016-06-25] MEDS: *HR* HYDROmorphone (PF) 1 MG/ML SYRINGE IVP PRN ×7 (00:10→22:27)
[2016-06-25] MEDS: GuaiFENesin/Codeine Oral Soln 5 ML UDC PO SCH ×4 (00:10→18:02)
[2016-06-25 03:31] LABS: Basophils # 0.1 K/mcL (0.0-0.2); Basophils % 0.6 %; Eosinophils # 0.3 K/mcL (0.0-0.6); Eosinophils % 1.8 %; Hematocrit 39.8 % (37.5-50.1); Hemoglobin 13.5 g/dL (12.9-16.9); Immature Granulocytes % 4.5 % (0-4); Lymphocytes # 2.3 K/mcL (0.6-4.6); Lymphocytes % 14.2 %; Mean Corpuscular HGB Conc 33.9 g/dL (31.6-35.5); Mean Corpuscular Hemoglobin 29.5 pg (28.0-33.3); Mean Corpuscular Volume 86.9 fL (83.0-100.0); Mean Platelet Volume 10.6 fL (9.4-12.4); Monocytes # 1.4 K/mcL (0.0-1.3); Monocytes % 8.7 %; Neutrophils # 11.2 K/mcL (1.6-8.9); Platelet Count 382 K/mcL (140-400); Red Blood Count 4.58 M/mcL (4.19-5.50); Red Cell Distribution Width 12.9 % (11.5-14.5); Segmented Neutrophils % 70.2 %
[2016-06-25 03:43] LABS: BUN/Creatinine Ratio 17 (6-26); Blood Urea Nitrogen 14 mg/dL (8-26); Calcium 9.2 mg/dL (8.6-10.8); Carbon Dioxide 25 mEq/L (19-29); Chloride 100 mEq/L (98-109); Glucose 97 mg/dL (70-99); Osmolality,Calculated 280 (280-300); Potassium 4.4 mEq/L (3.5-4.5); Sodium 135 mEq/L (136-145); eGFR For African Americans > 60 (> 60); eGFR For Non-African Americans > 60 (> 60)
[2016-06-25] MEDS: Acetylcysteine 10% 2 ML INHSOL IH SCH ×4 (04:59→21:41)
[2016-06-25] MEDS: Ipratropium/Albuterol Neb 3 ML IH SCH ×4 (04:59→21:41)
[2016-06-25] MEDS: Piperacillin/Tazobactam 3.375 GM in D5% in Water (Mini-Bag+) 100 ML IVPB SCH ×3 (05:26→20:08)
[2016-06-25] MEDS: *HR* Heparin 5,000 UNIT/ML VIAL SQ SCH ×3 (05:26→22:27)
[2016-06-25] MEDS ORDERED: Fluconazole 100 MG/50 ML 100 MG/50 ML BAG IVPB SCH (09:00)
[2016-06-25] MEDS: Pantoprazole 40 MG VIAL IVP SCH ×2 (09:03→20:07)
[2016-06-25] MEDS: Fluconazole 200 MG/100 ML 200 MG/100 ML BAG IVPB SCH (09:03)
[2016-06-25] MEDS: *HR* OxyCODONE/APAP 5/325 TABLET PO PRN ×2 (11:32→18:02)
[2016-06-25] MEDS: Nicotine 14 MG PATCH.TD24 TD SCH (11:33)
--- NOTE | 2016-06-25 13:24 | General Surgery Progress Note ---
Date of Encounter: 06/25/16 Time of Encounter: 11:20 - Assessment and Plan (1) Perforation of sigmoid colon due to diverticulitis Current Visit: Yes Status: Acute Continue with conservative therapy at this time including: Continue soft diet with chopped meat IV antibiotics- Zosyn as well as Diflucan. WBC has decreased to 15.9K. Will continue to follow. IF noted decrease tomorrow, then will consider removal of LAXMI drains. (2) Hypertension Current Visit: No Status: Chronic Stable Continue metoprolol and hydralazine prn Qualifiers: Hypertension type: essential hypertension Qualified Code(s): I10 - Essential (primary) hypertension (3) Cough Current Visit: Yes Status: Resolved Improved Continue mucomust and aerosols (4) Leukocytosis Current Visit: Yes Status: Resolved Decreasing as noted above. On Zosyn and Diflucan. Continue current antibiotics and antifungals. Qualifiers: Leukocytosis type: unspecified Qualified Code(s): D72.829 - Elevated white blood cell count, unspecified (5) Tobacco abuse Current Visit: No Status: Chronic Smoking cessation education Nicotine patch (6) Urinary retention Current Visit: Yes Status: Acute Voiding without difficulty Patient started on flomax 06/19 (7) Constipation Current Visit: Yes Status: Acute Continue colace BID Continue milk of magnesia prn Qualifiers: Constipation type: unspecified constipation type Qualified Code(s): K59.00 - Constipation, unspecified (8) DVT prophylaxis Current Visit: Yes Status: Acute Continue heparin 5,000 units SQ TID daily for DVT prophylaxis Right lesser saphenous vein with superfical clot Subjective Patient reports: no new complaints, other (Patient states he still has some lower abdominal pain, but improving. No nausea or vomiting. Positive BM yesterday.) Objective Vital Signs - Last 8 Hours Temp Pulse Resp BP Pulse Ox 06/25/16 09:56 16 96 06/25/16 08:05 98 F 98 16 125/89 96 Intake and Output 06/24/16 06/25/16 06/25/16 23:59 07:59 15:59 Intake Total 1526 / 1526 100 / 100 460 / 460 Output Total 1200 / 1200 1550 / 1550 1000 / 1000 Balance 326 / 326 -1450 / -1450 -540 / -540 Intake: IV Fluids 466 / 466 100 / 100 100 / 100 Clinimix E 5%-15% 366 / 366 SOLUTION 2,000 ML @ 50 mls/hr IVC .Q24H SYBIL with M.v.i. Adult 10 ml Rx#: [id number] Zosyn 3.375 GM In 100 / 100 100 / 100 100 / 100 Dextrose 5% (Minibag+) 100 ML 100 ML @ 25 mls/hr IVPB Q8H SYBIL Rx#: [id number] Oral 1060 / 1060 360 / 360 Output: Urine 1200 / 1200 1550 / 1550 1000 / 1000 Wound Drainage 0 / 0 Right Abdomen 0 / 0 Other: Meal Dinner Breakfast Percent of Meal Consumed 80% 100% Weight 96.5 kg Blood Glucose* 120 103 105 Patient Weight 06/25/16 23:59 Weight 96.5 kg - General physical appearance well nourished, no distress - Cardiovascular Cardiovascular exam: Present: RRR, no murmurs/rubs/gallops - Abdomen Abdomen: Present: bowel sounds present, soft, tender (Noted to palpation near the pelvis. LAXMI drains with minimal serosangious drainage.) - Labs 06/26/16 04:13 06/25/16 03:25 Diabetes panel 06/25/16 Range/Units 03:25 Sodium 135 L (136-145) mEq/L Potassium 4.4 (3.5-4.5) mEq/L Chloride 100 (98-109) mEq/L Carbon Dioxide 25 (19-29) mEq/L BUN 14 (8-26) mg/dL Creatinine 0.81 (0.72-1.25) mg/dL Glucose 97 (70-99) mg/dL Calcium 9.2 (8.6-10.8) mg/dL Calcium panel 06/25/16 Range/Units 03:25 Calcium 9.2 (8.6-10.8) mg/dL Pituitary panel 06/25/16 Range/Units 03:25 Sodium 135 L (136-145) mEq/L Potassium 4.4 (3.5-4.5) mEq/L Chloride 100 (98-109) mEq/L Carbon Dioxide 25 (19-29) mEq/L BUN 14 (8-26) mg/dL Creatinine 0.81 (0.72-1.25) mg/dL Glucose 97 (70-99) mg/dL Calcium 9.2 (8.6-10.8) mg/dL Adrenal panel 06/25/16 Range/Units 03:25 Sodium 135 L (136-145) mEq/L Potassium 4.4 (3.5-4.5) mEq/L Chloride 100 (98-109) mEq/L Carbon Dioxide 25 (19-29) mEq/L BUN 14 (8-26) mg/dL Creatinine 0.81 (0.72-1.25) mg/dL Glucose 97 (70-99) mg/dL Calcium 9.2 (8.6-10.8) mg/dL - VTE Documentation of Mechanical Device: Intermittent pneumatic compression device Consult Discharge Plan - Plan Referrals: Leslye Alves [Primary Care Provider] -
[2016-06-26] MEDS: GuaiFENesin/Codeine Oral Soln 5 ML UDC PO SCH ×3 (00:05→11:59)
[2016-06-26] MEDS: *HR* HYDROmorphone (PF) 1 MG/ML SYRINGE IVP PRN ×5 (00:46→15:50)
[2016-06-26 04:33] LABS: Basophils # 0.1 K/mcL (0.0-0.2); Basophils % 0.6 %; Eosinophils # 0.3 K/mcL (0.0-0.6); Eosinophils % 2.1 %; Hematocrit 38.6 % (37.5-50.1); Immature Granulocytes % 3.3 % (0-4); Lymphocytes # 1.8 K/mcL (0.6-4.6); Mean Corpuscular HGB Conc 33.7 g/dL (31.6-35.5); Mean Platelet Volume 10.6 fL (9.4-12.4); Monocytes # 1.2 K/mcL (0.0-1.3); Monocytes % 10.1 %; Neutrophils # 8.4 K/mcL (1.6-8.9); Platelet Count 384 K/mcL (140-400); Red Blood Count 4.49 M/mcL (4.19-5.50); Red Cell Distribution Width 12.8 % (11.5-14.5); Segmented Neutrophils % 68.9 %
[2016-06-26] MEDS: Acetylcysteine 10% 2 ML INHSOL IH SCH ×3 (04:43→15:40)
[2016-06-26] MEDS: Ipratropium/Albuterol Neb 3 ML IH SCH ×3 (04:43→15:38)
[2016-06-26] MEDS: *HR* Heparin 5,000 UNIT/ML VIAL SQ SCH (06:05)
[2016-06-26] MEDS: Piperacillin/Tazobactam 3.375 GM in D5% in Water (Mini-Bag+) 100 ML IVPB SCH ×2 (06:05→15:52)
[2016-06-26] MEDS: Pantoprazole 40 MG VIAL IVP SCH (09:00)
[2016-06-26] MEDS: Fluconazole 200 MG/100 ML 200 MG/100 ML BAG IVPB SCH (09:02)
[2016-06-26] MEDS ORDERED: *HR* OxyCODONE/APAP 10/325 TABLET PO PRN (09:49)
[2016-06-26 11:32] VITALS: BP 130/85
[2016-06-26] MEDS: Nicotine 14 MG PATCH.TD24 TD SCH (11:59)
--- NOTE | 2016-06-26 15:25 | Discharge Summary ---
<Harjeet Avalos - Last Filed: 06/26/16 16:38> Date of Encounter: 06/26/16 Time of Encounter: 15:21 - Discharge Diagnosis (1) Perforation of sigmoid colon due to diverticulitis Priority: Primary Status: Resolved (2) Hypertension Priority: Secondary Status: Chronic Qualifiers: Hypertension type: essential hypertension Qualified Code(s): I10 - Essential (primary) hypertension (3) Tobacco abuse Priority: Secondary Status: Chronic (4) DVT prophylaxis Priority: Secondary Status: Acute (5) Leukocytosis Priority: Secondary Status: Resolved Qualifiers: Leukocytosis type: unspecified Qualified Code(s): D72.829 - Elevated white blood cell count, unspecified (6) Tachycardia Priority: Secondary Status: Chronic (7) Dysuria Priority: Primary Status: Resolved (8) Cough Priority: Secondary Status: Resolved - Discharge Medications Prescriptions: OxyCODONE/APAP 10/325 [Percocet 10/325 MG] 1 each PO Q6HR PRN #52 tablet PRN Reason: Pain Amoxicillin/Clavulanate [Augmentin] 875 mg PO BIDWM #20 tablet Ciprofloxacin [Cipro] 500 mg PO BID #20 tablet Fluconazole [Diflucan] 100 mg PO DAILY #7 tablet Home Medications: Lisinopril/Hydrochlorothiazide [Zestoretic 20-25 mg Tablet] 1 each PO DAILY [History] Amlodipine [Norvasc] 5 mg PO DAILY 06/13/16 [History] Gabapentin [Neurontin] 300 mg PO BID 06/13/16 [History] HYDROcodone/Acet 5/325 mg [[place] 5-325 mg] 1 tab PO TID 06/13/16 [History] [place]-3S/Dha/Epa/Fish Oil [Fish Oil 1,200 mg Softgel] 1 each PO DAILY 06/13/16 [ History] Psyllium Husk [Metamucil] 0.52 gm PO 2XW 06/13/16 [History] Amoxicillin/Clavulanate [Augmentin] 875 mg PO BIDWM #20 tablet 06/26/16 [Rx] Ciprofloxacin [Cipro] 500 mg PO BID #20 tablet 06/26/16 [Rx] Fluconazole [Diflucan] 100 mg PO DAILY #7 tablet 06/26/16 [Rx] OxyCODONE/APAP 10/325 [Percocet 10/325 MG] 1 each PO Q6HR PRN #52 tablet [Rx] Allergies/Adverse Reactions: Allergies No Known Allergies Allergy (Verified 03/25/15 15:38) General Surgery Exam Initial Vital Signs Temp Pulse Resp BP Pulse Ox 97.9 F 139 22 154/92 98 06/13/16 14:27 06/13/16 14:27 06/13/16 14:27 06/13/16 14:27 06/13/16 14:27 - General physical appearance well developed, well nourished, no distress - Neck trachea midline - Respiratory normal expansion, clear to auscultation - Cardiovascular Cardiovascular exam: Present: RRR, no murmurs/rubs/gallops - Abdomen Abdomen general surgery: Present: bowel sounds present, soft. Absent: guarding , rebound - Neurologic Present: CN 2-12 grossly intact - Psychiatric Psychiatric general surgery: Present: A&Ox3 Date of admission: 06/13/16 18:09 Primary care physician: Leslye Alves Consults: 06/16/16 15:55 Consult to Interventional Radiology [CONS] Routine Consulting Provider: Radiology Interventional Cols Reason for Consult: Evaluate for drainage of intra-abdominal abscesses- spoke with Dr. Mays Time Notified: 15:56 Call Completed: Yes 06/17/16 11:26 Consult to Invasive Line Access Team [CONS] Routine Reason for Consult: PICC placement Line Type: PICC PICC line indications: Parental nutrition Time Notified: 11:27 Call Completed: Yes 06/17/16 11:28 consult to vp software [Consult to Nutrition] [CONS] Routine Comment: Total fluid rate 125ml/hour (MIV + TPN) Consulting Provider: NUTRITION Reason for Dietary Consult: TPN Start and Manage 06/17/16 11:34 Consult to Invasive Line Access Team [CONS] Routine Reason for Consult: Picc Line Insertion Line Type: PICC 06/22/16 09:59 Consult to Infectious Diseases [CONS] Routine Consulting Provider: Infectious Disease [place] Reason for Consult: Perforated diverticulitis; persistent leukocytosis Time Notified: 10:00 Call Completed: Yes Discharging clinician: Alberto Canada Anticipated date of discharge: 06/26/16 - Patient Status Disposition: Home, Self-Care Condition: Fair Overall status at discharge: patient is progressing back to baseline - Discharge Instructions Follow Up With: Leslye Alves [Primary Care Provider] - Loren Jeffrey MD [Partnered Physician] - Additional Instructions: Follow-up with Dr. Jeffrey in 2 weeks. - Diet and Activity Activity: increase activity as tolerated Diet: advance to your usual diet - Hospital Course Hospital course: Mr. Sanchez is a 56 year old male presented to the ED this afternoon with abdominal pain. He has got a past medical history of hypertension, hyperlipidemia, and nephrolithiasis, and diverticulitis. Last evening he began have sharp epigastric and right flank pain. The sharp pain lasted just a few moments, but continued intermittently worsening in duration and severity. When ambulating the pain was unbearable. The pain radiated down into suprapubic region. He rated the pain 8/10. He has had nausea since he 1st felt the abdominal pain last night and he has vomited 3 times. He was unable to sleep as the pain was too intense. He took 3 ibuprofen to help with the pain but it did not relieve his pain. This morning the pain was so bad his brought him to the ED. He also reports subjective fevers, emesis, nausea, diaphoresis, chills, and lightheadedness.'s last meal was last evening at approximately 5 PM. He has been unable to eat since then, and has no appetite. His last bowel movement was yesterday at 11 AM, which was solid. In the ED he was started on a normal saline infusion of 125 ml/hr, ciprofloxacin 400 mg IV piggyback, and pain medication. CT imaging revealed sigmoid diverticulitis with concern for perforation. He was initially treated with conservative measures. His WBC initially began trending down with Zosyn, but on HD 3 his WBC began trending back up. A repeat CT abd/pel revealed new loculated fluid collections that were supsicious for abscess. IR was consulted and two drains were place. E.coli was cultured and was sensitive to zosyn, which is the antibiotic he had been receiving since admission. Diflucan was added in addition to zosyn. After which his wbc began trending down. His wbc was 12.2 at the time of discharge. Over the course of his stay he was initially not having any stools or flatus. By the time of discharge he was having regular non-bloody stools. He will be discharged with Cipro 500mg BID x 10 days, Diflucan 100mg qday x 7 days, and pain medicine. Time spent discussing smoking cessation with patient: more than 10 minutes - Time Spent with Patient Total time spent providing and/or coordinating discharge services: Greater than 30 minutes Labs on day of discharge: Labs from last 24 hours 06/26/16 06/26/16 06/26/16 11:27 08:03 04:13 WBC 12.2 H RBC 4.49 Hgb 13.0 Hct 38.6 MCV 86.0 MCH 29.0 MCHC 33.7 RDW 12.8 Plt Count 384 MPV 10.6 Immature Gran % 3.3 Seg Neutrophils % 68.9 Lymphocytes % 15.0 Monocytes % 10.1 Eosinophils % 2.1 Basophils % 0.6 Neutrophils # 8.4 Lymphocytes # 1.8 Monocytes # 1.2 Eosinophils # 0.3 Basophils # 0.1 POC Glucose 123 H 113 H 06/25/16 17:37 WBC RBC Hgb Hct MCV MCH MCHC RDW Plt Count MPV Immature Gran % Seg Neutrophils % Lymphocytes % Monocytes % Eosinophils % Basophils % Neutrophils # Lymphocytes # Monocytes # Eosinophils # Basophils # POC Glucose 122 H Preliminary micro results at discharge 06/22/16 10:08 Blood Culture - Preliminary Peripheral Central Cath, Picc No growth. 06/22/16 10:08 Blood Culture - Preliminary Peripheral Venipuncture No growth. - Impressions ITS Impressions Abdomen/Pelvis CT 06/16/16 13:00 IMPRESSION: There are persistent changes of diverticulitis. There has been decrease in amount of extraluminal gas. However, there are now multiple focal fluid collections in the abdomen and pelvis compatible with abscesses. D/ / Ruddy Shepherd MD / Ruddy Shepherd MD Interpreting Provider: Ruddy Shepherd MD Retroperitoneal Abscess Drainage 06/17/16 00:00 IMPRESSION: Successful CT guided placement of drainage catheters into fluid collections anterior to the rectum as well as in the low mid abdomen. D/ / Dylan Barber MD / Dylan Barber MD Interpreting Provider: Dylan Barber MD Retroperitoneal Abscess Drainage 06/17/16 00:00 IMPRESSION: Successful CT guided placement of drainage catheters into fluid collections anterior to the rectum as well as in the low mid abdomen. D/ / Dylan Barber MD / Dylan Barber MD Interpreting Provider: Dylan Barber MD Abdomen/Pelvis CT 06/21/16 10:15 IMPRESSION: 1. Interval placement of right lower quadrant and left parasacral percutaneous drains. There is no significant fluid collection surrounding these drains. There is a persistent loculated fluid collection anterior to the right psoas muscle, which has decreased in size since the prior examination. No new fluid collection. 2. Findings of sigmoid diverticulitis are improved, but persists. D/ / 06/21/2016 11:49:43 Mariza Red MD / Alissa Avalos Interpreting Provider: Mariza Red MD Chest X-Ray 06/22/16 09:59 IMPRESSION: 1. No acute cardiopulmonary disease. 2. Right upper extremity PICC tip terminates at the cavoatrial junction. D/ / 06/22/2016 10:38:54 Doris Paniagua MD / negrita Interpreting Provider: Doris Paniagua MD <Alberto Canada M - Last Filed: 06/26/16 17:15> - Discharge Diagnosis (1) Perforation of sigmoid colon due to diverticulitis Status: Resolved (2) Hypertension Status: Chronic Qualifiers: Hypertension type: essential hypertension Qualified Code(s): I10 - Essential (primary) hypertension (3) Cough Status: Resolved (4) Leukocytosis Status: Resolved Qualifiers: Leukocytosis type: unspecified Qualified Code(s): D72.829 - Elevated white blood cell count, unspecified (5) Tobacco abuse Status: Chronic (6) Urinary retention Status: Acute (7) Constipation Status: Acute Qualifiers: Constipation type: unspecified constipation type Qualified Code(s): K59.00 - Constipation, unspecified (8) DVT prophylaxis Status: Acute General Surgery Exam Initial Vital Signs Temp Pulse Resp BP Pulse Ox 97.9 F 139 22 154/92 98 06/13/16 14:27 06/13/16 14:27 06/13/16 14:27 06/13/16 14:27 06/13/16 14:27 Date of admission: 06/13/16 18:09 Primary care physician: Leslye Alves Consults: 06/16/16 15:55 Consult to Interventional Radiology [CONS] Routine Consulting Provider: Radiology Interventional Cols Reason for Consult: Evaluate for drainage of intra-abdominal abscesses- spoke with Dr. Mays Time Notified: 15:56 Call Completed: Yes 06/17/16 11:26 Consult to Invasive Line Access Team [CONS] Routine Reason for Consult: PICC placement Line Type: PICC PICC line indications: Parental nutrition Time Notified: 11:27 Call Completed: Yes 06/17/16 11:28 consult to vp software [Consult to Nutrition] [CONS] Routine Comment: Total fluid rate 125ml/hour (MIV + TPN) Consulting Provider: NUTRITION Reason for Dietary Consult: TPN Start and Manage 06/17/16 11:34 Consult to Invasive Line Access Team [CONS] Routine Reason for Consult: Picc Line Insertion Line Type: PICC 06/22/16 09:59 Consult to Infectious Diseases [CONS] Routine Consulting Provider: Infectious Disease [place] Reason for Consult: Perforated diverticulitis; persistent leukocytosis Time Notified: 10:00 Call Completed: Yes - Hospital Course Hospital course: Mr. Sanchez is a 56 year old male - Time Spent with Patient Total time spent providing and/or coordinating discharge services: Labs on day of discharge: Labs from last 24 hours 06/26/16 06/26/16 06/26/16 11:27 08:03 04:13 WBC 12.2 H RBC 4.49 Hgb 13.0 Hct 38.6 MCV 86.0 MCH 29.0 MCHC 33.7 RDW 12.8 Plt Count 384 MPV 10.6 Immature Gran % 3.3 Seg Neutrophils % 68.9 Lymphocytes % 15.0 Monocytes % 10.1 Eosinophils % 2.1 Basophils % 0.6 Neutrophils # 8.4 Lymphocytes # 1.8 Monocytes # 1.2 Eosinophils # 0.3 Basophils # 0.1 POC Glucose 123 H 113 H 06/25/16 17:37 WBC RBC Hgb Hct MCV MCH MCHC RDW Plt Count MPV Immature Gran % Seg Neutrophils % Lymphocytes % Monocytes % Eosinophils % Basophils % Neutrophils # Lymphocytes # Monocytes # Eosinophils # Basophils # POC Glucose 122 H Preliminary micro results at discharge 06/22/16 10:08 Blood Culture - Preliminary Peripheral Central Cath, Picc No growth. 06/22/16 10:08 Blood Culture - Preliminary Peripheral Venipuncture No growth. - Impressions ITS Impressions Abdomen/Pelvis CT 06/16/16 13:00 IMPRESSION: There are persistent changes of diverticulitis. There has been decrease in amount of extraluminal gas. However, there are now multiple focal fluid collections in the abdomen and pelvis compatible with abscesses. D/ / Ruddy Shepherd MD / Ruddy Shepherd MD Interpreting Provider: Ruddy Shepherd MD Retroperitoneal Abscess Drainage 06/17/16 00:00 IMPRESSION: Successful CT guided placement of drainage catheters into fluid collections anterior to the rectum as well as in the low mid abdomen. D/ : / Dylan Barber MD / Dylan Barber MD Interpreting Provider: Dylan Barber MD Retroperitoneal Abscess Drainage 06/17/16 00:00 IMPRESSION: Successful CT guided placement of drainage catheters into fluid collections anterior to the rectum as well as in the low mid abdomen. D/ : / Dylan Barber MD / Dylan Barber MD Interpreting Provider: Dylan Barber MD Abdomen/Pelvis CT 06/21/16 10:15 IMPRESSION: 1. Interval placement of right lower quadrant and left parasacral percutaneous drains. There is no significant fluid collection surrounding these drains. There is a persistent loculated fluid collection anterior to the right psoas muscle, which has decreased in size since the prior examination. No new fluid collection. 2. Findings of sigmoid diverticulitis are improved, but persists. D/ / 06/21/2016 11:49:43 Mariza Red MD / Alissa Avalos Interpreting Provider: Mariza Red MD Chest X-Ray 06/22/16 09:59 IMPRESSION: 1. No acute cardiopulmonary disease. 2. Right upper extremity PICC tip terminates at the cavoatrial junction. D/ / 06/22/2016 10:38:54 Doris Paniagua MD / negrita Interpreting Provider: Doris Paniagua MD - Attending Attestation I examined this patient and my medical decision-making was reviewed with the MAIL ROOM/PA/Advanced Practice Nurse/Resident Physician. I agree with the documented findings, disposition and treatment plan as described except to the extent set forth below. Review the above assessment and plan with the public relations intern present. Patient still has some lower abdominal pain but has improved. He did discharge home and the LAXMI drains have been moved at the bedside. Discharge home on ciprofloxacin as well as Diflucan. Follow-up with Dr. Jeffrey in 2 weeks.
== END 2016-06-26 16:55 | disposition home or self-care (01) | DRG 391 ==
LOC: EMEROO 14:03 → 3ANU 14:03
PROVIDERS: ADMIT Surgery; ATTEND Surgery
PROC: IRDRAIN (2016-06-17 12:00)

== ENCOUNTER 2016-07-13 09:12 | Inpatient (IN) ==
[2016-07-13] MEDS ORDERED: *HR* Morphine 2 MG/ML SYRINGE IVP ONE (10:02)
[2016-07-13] MEDS ORDERED: Ondansetron 4 MG/2 ML VIAL IVP ONE ×2 (10:02→11:05)
[2016-07-13] MEDS: 0.9 % Sodium Chloride 1,000 ML IVC SCH ×3 (10:13→22:34)
[2016-07-13 10:15] LABS: Hematocrit 43.4 % (37.5-50.1); Hemoglobin 15.5 g/dL (12.9-16.9); Mean Corpuscular HGB Conc 35.7 g/dL (31.6-35.5); Mean Corpuscular Hemoglobin 29.1 pg (28.0-33.3); Mean Corpuscular Volume 81.6 fL (83.0-100.0); Mean Platelet Volume 9.5 fL (9.4-12.4); Platelet Count 217 K/mcL (140-400); Red Blood Count 5.32 M/mcL (4.19-5.50); Red Cell Distribution Width 12.3 % (11.5-14.5)
[2016-07-13 10:28] LABS: BUN/Creatinine Ratio 14 (6-26); Blood Urea Nitrogen 13 mg/dL (8-26); Calcium 9.7 mg/dL (8.6-10.8); Carbon Dioxide 17 mEq/L (19-29); Chloride 105 mEq/L (98-109); Glucose 125 mg/dL (70-99); Osmolality,Calculated 284 (280-300); Potassium 4.4 mEq/L (3.5-4.5); Sodium 136 mEq/L (136-145); eGFR For African Americans > 60 (> 60); eGFR For Non-African Americans > 60 (> 60)
--- NOTE | 2016-07-13 10:33 | Emergency Department Note ---
Disposition Clinical Impression: Diverticulitis Qualifiers: Diverticulitis site: large intestine Diverticulitis bleeding: without bleeding Diverticulitis complication: with perforation Qualified Code(s): K57.20 - Diverticulitis of large intestine with perforation and abscess without bleeding Disposition: Admitted As Inpatient Condition: Fair Abdominal Pain HPI - General Chief Complaint: ED Abdominal Pain Stated Complaint: Diverticulitis Time Seen by Provider: 07/13/16 09:31 Source: patient - History of Present Illness HPI Narrative: 56-year-old male presents with chief complaint of left lower abdominal pain. Patient was discharged 2 weeks ago for VIDYA for perforation of sigmoid colon due to diverticulitis. Patient was treated conservatively with antibiotics. CT showed loculated fluid collection suspicious for abscess which were drained by IR. Patient states he finished his antibiotic regimen post discharge. Since discharge his pain has progressively gotten worse, with worsening nausea. Pain is described as lightening in the left lower quadrant 10/10 intermittent , without radiation, worsens with movement, bowel movements, urination. Patient looks diaphoretic, fatigued. Last bowel movement was yesterday, he reports decrease in appetite with last meal being yesterday. He denies fevers, chills, melena, vomiting, hematochezia. He takes oxycodone at home for pain which he has not taken due to worsening nausea. Pain Scale: 8 - Related Data Home Medications Medication Instructions Recorded Confirmed Lisinopril/Hydrochlorothiazide 1 each PO DAILY 03/25/15 06/13/16 [Zestoretic 20-25 mg Tablet] Amlodipine [Norvasc] 5 mg PO DAILY 06/13/16 06/13/16 Gabapentin [Neurontin] 300 mg PO BID 06/13/16 06/13/16 HYDROcodone/Acet 5/325 mg [[place] 1 tab PO TID 06/13/16 06/13/16 5-325 mg] [place]-3S/Dha/Epa/Fish Oil [Fish 1 each PO DAILY 06/13/16 06/13/16 Oil 1,200 mg Softgel] Psyllium Husk [Metamucil] 0.52 gm PO 2XW 06/13/16 06/13/16 Previous Rx's Medication Instructions Recorded Amoxicillin/Clavulanate [Augmentin] 875 mg PO BIDWM #20 tablet 06/26/16 Ciprofloxacin [Cipro] 500 mg PO BID #20 tablet 06/26/16 Fluconazole [Diflucan] 100 mg PO DAILY #7 tablet 06/26/16 OxyCODONE/APAP 10/325 [Percocet 1 each PO Q6HR PRN #52 tablet 06/26/16 10/325 MG] Allergies Allergy/AdvReac Type Severity Reaction Status Date / Time has allergies Allergy See Uncoded 07/13/16 14:31 Comments Constitutional: Denies: fever, chills, weakness, weight change Eyes: Denies: eye pain, eye discharge, vision change Cardiovascular: Denies: chest pain, palpitations, dyspnea on exertion, edema, syncope Respiratory: Denies: cough, dyspnea, wheezes, hemoptysis, stridor Gastrointestinal: Reports: abdominal pain, nausea. Denies: vomiting, diarrhea, constipation, hematemesis, melena, hematochezia Genitourinary: Denies: urgency, dysuria, frequency, hematuria Musculoskeletal: Denies: back pain, neck pain, arthralgia, myalgia Integumentary: Denies: rash, abrasion, lesions Neurological: Denies: headache, weakness, numbness, paresthesias, confusion, abnormal gait, vertigo Psychiatric: Denies: anxiety, depression, suicidal thoughts, homicidal thoughts , auditory hallucinations, visual hallucinations Endocrine: Denies: fatigue Abdominal Pain PMH - Past Medical History Medical history: Reports: kidney stones, other Male Surgical History: Reports: orthopedic, other, other Psychiatric history: Reports: no psych history - Social History Smoking status: Current every day smoker Alcohol use: Reports: occasionally Drug use: Reports: none Physical Exam - General Limitations: no limitations General appearance: alert, in no apparent distress, anxious, lethargic - Head Head exam: atraumatic, normocephalic, normal inspection - Eye Eye exam: Present: normal appearance, PERRL, EOMI - ENT ENT exam: normal exam, normal oropharynx, mucous membranes moist - Neck Neck exam: Present: normal inspection, full ROM, trachea midline - Chest Chest inspection: Present: normal inspection, symmetric chest wall rise - Respiratory Respiratory exam: Present: normal lung sounds bilaterally - Cardiovascular Cardiovascular exam: Present: normal rhythm, tachycardia - Abdominal Exam Abdominal exam: Present: soft, tenderness, rebound, diminished bowel sounds. Absent: distention, guarding, rigidity, Gelelr's sign, tenderness at McBurney's Point, ascites, mass, hernia Abdominal tenderness: Present: LLQ - Extremities Exam Extremities exam: Present: normal inspection, full ROM. Absent: tenderness, pedal edema - Neurological Exam Neurological exam: Present: alert, oriented X3 - Psychiatric Psychiatric exam: Present: normal affect, normal mood - Skin Skin exam: Present: warm, dry, intact, normal color Course Course Narrative: Will obtain CT Abomen/Pelvis with contrast, CBC, BMP. - Reevaluation(s) Reevaluation #1: CT abdomen and pelvis with contrast shows perforated diverticulitis. Patient has elevated white blood cell count of 22. He is tachycardic, afebrile. Dr. Shah has been notified and will evaluate patient. He has been given 3 L normal saline and start Levaquin and Flagyl. blood cultures sent. lactic acid pending. Time: 13:01 Vital Signs Temperature 98.4 F 07/13/16 09:20 Pulse Rate 127 07/13/16 09:20 Respiratory Rate 20 07/13/16 09:20 Blood Pressure 132/93 07/13/16 09:20 O2 Sat by Pulse Oximetry 96 07/13/16 09:20 Temperature 98.4 F 07/13/16 09:20 Pulse Rate 107 07/13/16 14:02 Respiratory Rate 16 07/13/16 14:41 Blood Pressure 190/120 07/13/16 14:41 O2 Sat by Pulse Oximetry 105 07/13/16 14:02 Oxygen Delivery Oxygen Delivery Room Air Abdominal Pain - Differential Diagnosis Differential Diagnosis: Likely: other (perforated diverticulitis ) - Medical Records Medical records reviewed: Yes I reviewed the patient's medical records. - Lab Data Lab results reviewed: Yes I reviewed the patient's lab results. Result diagrams: 07/13/16 10:07 07/13/16 10:07 Lab Results 07/13/16 07/13/16 07/13/16 Range/Units 10:07 10:07 12:49 WBC 22.2 H (4.3-11.1) K/mcL RBC 5.32 (4.19-5.50) M/mcL Hgb 15.5 (12.9-16.9) g/dL Hct 43.4 (37.5-50.1) % MCV 81.6 L (83.0-100.0) fL MCH 29.1 (28.0-33.3) pg MCHC 35.7 H (31.6-35.5) g/dL RDW 12.3 (11.5-14.5) % Plt Count 217 (140-400) K/mcL MPV 9.5 (9.4-12.4) fL VBG pH (7.32-7.42) pH Units VBG pCO2 (41-51) mmHg VBG pO2 (25-40) mmHg VBG HCO3 (21-27) mEq/L Sodium 136 (136-145) mEq/L Potassium 4.4 (3.5-4.5) mEq/L Chloride 105 (98-109) mEq/L Carbon Dioxide 17 L (19-29) mEq/L BUN 13 (8-26) mg/dL Creatinine 0.94 (0.72-1.25) mg/dL Est GFR ( Amer) > 60 (> 60) Est GFR (Non-Af Amer) > 60 (> 60) BUN/Creatinine Ratio 14 (6-26) Glucose 125 H (70-99) mg/dL Calculated Osmolality 284 (280-300) Lactic Acid 1.6 (0.5-2.2) mmol/L Calcium 9.7 (8.6-10.8) mg/dL 07/13/16 Range/Units 12:49 WBC (4.3-11.1) K/mcL RBC (4.19-5.50) M/mcL Hgb (12.9-16.9) g/dL Hct (37.5-50.1) % MCV (83.0-100.0) fL MCH (28.0-33.3) pg MCHC (31.6-35.5) g/dL RDW (11.5-14.5) % Plt Count (140-400) K/mcL MPV (9.4-12.4) fL VBG pH 7.35 (7.32-7.42) pH Units VBG pCO2 42 (41-51) mmHg VBG pO2 59 H (25-40) mmHg VBG HCO3 23.2 (21-27) mEq/L Sodium (136-145) mEq/L Potassium (3.5-4.5) mEq/L Chloride (98-109) mEq/L Carbon Dioxide (19-29) mEq/L BUN (8-26) mg/dL Creatinine (0.72-1.25) mg/dL Est GFR ( Amer) (> 60) Est GFR (Non-Af Amer) (> 60) BUN/Creatinine Ratio (6-26) Glucose (70-99) mg/dL Calculated Osmolality (280-300) Lactic Acid (0.5-2.2) mmol/L Calcium (8.6-10.8) mg/dL - Radiology Data Radiology results reviewed: Yes I reviewed the patient's radiology results.
--- NOTE | 2016-07-13 10:52 | Emergency Department Note ---
START Narrative - START START: I examined this patient and my medical decision-making was reviewed with the ABSORPTION PLANT OPERATOR HELPER/PA/Advanced Practice Nurse/Resident Physician. I agree with the documented findings, disposition and treatment plan as described except to the extent set forth below. Patient does have abdominal pain and has had recent bouts of diverticulitis and has been struggling with this for the last several months. On my exam does have moderate to severe bilateral lower abdominal pain but soft without rigidity , rebound, guarding. Evaluation including labs and CT is pending. The patient is bright and alert and nontoxic in appearance I did review the patient's test results and I also spoke with the radiologist showing a perforation and free air. We are speaking with the surgeon at this time the patient will be admitted. Has been started on antibiotics. Additional IV fluids will be given. [id number]
[2016-07-13] MEDS ORDERED: *HR* HYDROmorphone (PF) 1 MG/ML SYRINGE IVP ONE (11:05)
[2016-07-13] MEDS ORDERED: Levofloxacin 750 MG/150 ML 750 MG/150 ML BAG IVPB ONE (12:23)
[2016-07-13] MEDS ORDERED: MetroNIDAZOLE 500 MG/100 ML 500 MG/100 ML BAG IVPB ONE (12:23)
[2016-07-13] MEDS ORDERED: 0.9 % Sodium Chloride 1,000 ML IVC ONE (12:23)
[2016-07-13 13:03] LABS: VBG HCO3 23.2 mEq/L (21-27); VBG PH 7.35 pH Units (7.32-7.42)
--- NOTE | 2016-07-13 14:13 | General Surg History&Physical ---
<Elsa Jung Elizabeth - Last Filed: 07/13/16 14:14> Date of Encounter: 07/13/16 Time of Encounter: 13:30 Assessment and Plan (1) Perforation of sigmoid colon due to diverticulitis Current Visit: No Status: Acute The assessment and plan as outlined above was discussed with the patient and/or family members who expressed understanding and agreement. All questions were answered. Risks, benefits, alternatives and expected outcomes reviewed with the patient and he is in agreement to proceed to the operating room with Dr. Jeffrey for an exporatory laparotomy with sigmoid resection and colostomy NPO IV antibiotics- cipro and flagyl IV fluids Supportive care/pain control IS every 1 hour while awake (2) Hyperlipidemia Current Visit: Yes Status: Chronic The assessment and plan as outlined above was discussed with the patient and/or family members who expressed understanding and agreement. All questions were answered. Qualifiers: Hyperlipidemia type: unspecified Qualified Code(s): E78.5 - Hyperlipidemia , unspecified (3) Hypertension Current Visit: No Status: Chronic The assessment and plan as outlined above was discussed with the patient and/or family members who expressed understanding and agreement. All questions were answered. Will place on Metoprolol 5mg IV every 6 hours routine Hydralazine 10mg every 6 hours prn Will monitor and adjust as necessary Qualifiers: Hypertension type: essential hypertension Qualified Code(s): I10 - Essential (primary) hypertension (4) Tobacco abuse Current Visit: No Status: Chronic The assessment and plan as outlined above was discussed with the patient and/or family members who expressed understanding and agreement. All questions were answered. Smoking cessation education (5) DVT prophylaxis Current Visit: No Status: Acute The assessment and plan as outlined above was discussed with the patient and/or family members who expressed understanding and agreement. All questions were answered. EPCDs to bilateral lower extremities for DVT prophylaxis History of Present Illness Chief complaint: Abdominal pain HPI: Mr. Sanchez is a 56 year old male who is known to the surgical group. He was recently admitted to the hospital for perforated diverticulitis approximately 1 month ago. He did have a long hospital course complicated by abscess formation and subsequent IR drain placements and ileus. He states that he had slowly been progressing and improving daily until 3 days. ago. He states that he woke up Monday night with recurrent and worsening abdominal pain. He states that it felt like a balloon popped inside of his abdomen. He states that the pain has been more intense since that time and is located in the LLQ. He describes it as a sharp and stabbing pain. He admits to nausea and vomiting. Denies any hematemesis or coffee ground emesis. He states that he had a normal bowel movement yesterday and denies any melena or hematochezia. Denies passing flatus today, last yesterday. He has loss of appetite. Denies any chest pain or shortness of breath. Denies any difficulty with urination. He denies fevers but admits to chills. He has had a CT scan which shows perforated diverticulitis with free intra-abdominal air. Past Med Surg Social Fam HX - Past Medical History Source: patient Medical history: hyperlipidemia, hypertension, kidney stones, other (cervical stenosis and chronic neck pain) Psychiatric history: no psych history - Past Surgical History Surgical History: orthopedic, other (anterior cervical decompression with fusion of C4-C6, kidney stone removal), other (T&A) - Social History Smoking Status: Current every day smoker Smokeless Tobacco Status: Yes (vapor pen) Alcohol use: occasionally Drug use: none Occupational status: employed Current living situation: Home - Independent Activity Level: Independent ambulation - Family History Father Living Status: Still Living Mother Living Status: Still Living Hx Family Cardiac Disorders: Yes (CAD) Hx Family Neurologic Disorders: Yes (CVA) Medications and Allergies HYDROcodone/Acet 5/325 mg [Kiester 5-325 mg] 1 tab PO TID PRN 06/13/16 [History] [place]-3S/Dha/Epa/Fish Oil [Fish Oil 1,200 mg Softgel] 1,200 mg PO DAILY [History] Psyllium Husk [Metamucil] 0.52 gm PO 2XW 06/13/16 [History] Amlodipine [Norvasc] 5 mg PO DAILY 07/14/16 [History] Lactose-Reduced Food [Ensure Liquid] 1 bottle PO TID 07/14/16 [History] Allergies has allergies Allergy (Uncoded 07/13/16 14:31) See Comments list unavailable-patient did not bring list Review of Systems All systems PM: reviewed and no additional remarkable complaints except as stated (in the HPI) All systems PM: A 10-system review of systems was performed and is negative for pertinent findings except as documented above in the HPI. General Surgery Exam Initial Vital Signs Temp Pulse Resp BP Pulse Ox 98.4 F 127 20 132/93 96 07/13/16 09:20 07/13/16 09:20 07/13/16 09:20 07/13/16 09:20 07/13/16 09:20 - General physical appearance well developed, well nourished, moderate pain, obese - Eyes normal ocular movement - ENT normal mucosa, atraumatic, normocephalic - Neck trachea midline - Respiratory normal respiratory effort, clear to auscultation - Cardiovascular Cardiovascular exam: Present: tachycardia - Abdomen Abdomen general surgery: Present: bowel sounds present, soft, tender, peritoneal (focal LLQ) Abdominal Tenderness: Present: LLQ - Integumentary Integumentary general surgery: Present: warm and dry - Neurologic Present: CN 2-12 grossly intact - Psychiatric Psychiatric general surgery: Present: appropriate, oriented to person, oriented to place, oriented to time, speech is normal, memory intact Results - Labs 07/13/16 10:07 07/13/16 10:07 Abnormal lab results WBC 22.2 K/mcL (4.3-11.1) H 07/13/16 10:07 MCV 81.6 fL (83.0-100.0) L 07/13/16 10:07 MCHC 35.7 g/dL (31.6-35.5) H 07/13/16 10:07 VBG pO2 59 mmHg (25-40) H 07/13/16 12:49 Carbon Dioxide 17 mEq/L (19-29) L 07/13/16 10:07 Glucose 125 mg/dL (70-99) H 07/13/16 10:07 Diabetes panel 07/13/16 Range/Units 10:07 Sodium 136 (136-145) mEq/L Potassium 4.4 (3.5-4.5) mEq/L Chloride 105 (98-109) mEq/L Carbon Dioxide 17 L (19-29) mEq/L BUN 13 (8-26) mg/dL Creatinine 0.94 (0.72-1.25) mg/dL Glucose 125 H (70-99) mg/dL Calcium 9.7 (8.6-10.8) mg/dL Calcium panel 07/13/16 Range/Units 10:07 Calcium 9.7 (8.6-10.8) mg/dL Pituitary panel 07/13/16 Range/Units 10:07 Sodium 136 (136-145) mEq/L Potassium 4.4 (3.5-4.5) mEq/L Chloride 105 (98-109) mEq/L Carbon Dioxide 17 L (19-29) mEq/L BUN 13 (8-26) mg/dL Creatinine 0.94 (0.72-1.25) mg/dL Glucose 125 H (70-99) mg/dL Calcium 9.7 (8.6-10.8) mg/dL Adrenal panel 07/13/16 Range/Units 10:07 Sodium 136 (136-145) mEq/L Potassium 4.4 (3.5-4.5) mEq/L Chloride 105 (98-109) mEq/L Carbon Dioxide 17 L (19-29) mEq/L BUN 13 (8-26) mg/dL Creatinine 0.94 (0.72-1.25) mg/dL Glucose 125 H (70-99) mg/dL Calcium 9.7 (8.6-10.8) mg/dL All other labs normal. - Imaging CT scan - abdomen: report reviewed CT scan - pelvis: report reviewed Additional studies: Abdomen/Pelvis CT 07/13/16 10:01 IMPRESSION: Evidence of a exuberant sigmoid colonic diverticulitis. Inflammatory changes have increased since the prior study and there is now a moderate amount of extraluminal gas throughout the abdomen compatible with perforation. These findings were discussed with the ER physician caring for the patient at the time of interpretation on today's date. D/ / Tanika Rojo Cha, MD / Tanika Rojo Cha, MD Interpreting Provider: Tanika Rojo Cha, MD - Attending Attestation I examined this patient and my medical decision-making was reviewed with the POULTRY HELPER/PA/Advanced Practice Nurse/Resident Physician. I agree with the documented findings, disposition and treatment plan as described except to the extent set forth below. <Loren Jeffrey - Last Filed: 07/14/16 14:24> Date of Encounter: 07/13/16 Assessment and Plan (1) DVT prophylaxis Current Visit: No Status: Acute The assessment and plan as outlined above was discussed with the patient and/or family members who expressed understanding and agreement. All questions were answered. (2) Hypertension Current Visit: No Status: Chronic The assessment and plan as outlined above was discussed with the patient and/or family members who expressed understanding and agreement. All questions were answered. Qualifiers: Hypertension type: essential hypertension Qualified Code(s): I10 - Essential (primary) hypertension (3) Tobacco abuse Current Visit: No Status: Chronic The assessment and plan as outlined above was discussed with the patient and/or family members who expressed understanding and agreement. All questions were answered. (4) Perforation of sigmoid colon due to diverticulitis Current Visit: No Status: Acute The assessment and plan as outlined above was discussed with the patient and/or family members who expressed understanding and agreement. All questions were answered. discussed with patient that he has essentially failed therapy and now has perforated diverticulitis with free air. I discussed that I feel he needs surgery and he agrees. Will plan exploratory laparotomy, Sigmoid resection and colostomy. RIsks and benefits of surgery and not doing surgery were discussed with patient and he wishes to proceed. npo, prn pain control Abx IVFH (5) Leukocytosis Current Visit: No Status: Resolved The assessment and plan as outlined above was discussed with the patient and/or family members who expressed understanding and agreement. All questions were answered. Qualifiers: Leukocytosis type: unspecified Qualified Code(s): D72.829 - Elevated white blood cell count, unspecified (6) Tachycardia Current Visit: No Status: Chronic The assessment and plan as outlined above was discussed with the patient and/or family members who expressed understanding and agreement. All questions were answered. History of Present Illness HPI: Mr. Sanchez is a 56 year old male Review of Systems All systems PM: A 10-system review of systems was performed and is negative for pertinent findings except as documented above in the HPI. General Surgery Exam Initial Vital Signs Temp Pulse Resp BP Pulse Ox 98.4 F 127 20 132/93 96 07/13/16 09:20 07/13/16 09:20 07/13/16 09:20 07/13/16 09:20 07/13/16 09:20 - General physical appearance moderate distress, moderate pain - Eyes PERRL, normal ocular movement - ENT normal mucosa, normocephalic - Neck trachea midline - Respiratory normal expansion, clear to auscultation - Cardiovascular Cardiovascular exam: Present: tachycardia - Abdomen Abdomen general surgery: Present: bowel sounds present, soft, tender, guarding ( voluntary), peritoneal Abdominal Tenderness: Present: LLQ - Integumentary Integumentary general surgery: Present: warm and dry, no abnormal pigmentation - Neurologic Present: CN 2-12 grossly intact, normal coordination - Musculoskeletal Present: normal posture - Psychiatric Psychiatric general surgery: Present: A&Ox3, speech is normal Results - Labs 07/14/16 04:55 07/14/16 04:55 Abnormal lab results WBC 17.1 K/mcL (4.3-11.1) H 07/14/16 04:55 Neutrophils # 14.0 K/mcL (1.6-8.9) H 07/14/16 04:55 Monocytes # 1.6 K/mcL (0.0-1.3) H 07/14/16 04:55 VBG pO2 59 mmHg (25-40) H 07/13/16 12:49 Glucose 126 mg/dL (70-99) H 07/14/16 04:55 POC Glucose 142 (58-89) H 07/14/16 11:52 Calcium 8.4 mg/dL (8.6-10.8) L 07/14/16 04:55 Magnesium 1.5 mg/dL (1.6-2.6) L 07/14/16 04:55 Diabetes panel 07/14/16 Range/Units 04:55 Sodium 138 (136-145) mEq/L Potassium 4.1 (3.5-4.5) mEq/L Chloride 106 (98-109) mEq/L Carbon Dioxide 21 (19-29) mEq/L BUN 9 (8-26) mg/dL Creatinine 0.85 (0.72-1.25) mg/dL Glucose 126 H (70-99) mg/dL Calcium 8.4 L (8.6-10.8) mg/dL Calcium panel 07/14/16 Range/Units 04:55 Calcium 8.4 L (8.6-10.8) mg/dL Phosphorus 4.1 (2.3-4.7) mg/dL Pituitary panel 07/14/16 Range/Units 04:55 Sodium 138 (136-145) mEq/L Potassium 4.1 (3.5-4.5) mEq/L Chloride 106 (98-109) mEq/L Carbon Dioxide 21 (19-29) mEq/L BUN 9 (8-26) mg/dL Creatinine 0.85 (0.72-1.25) mg/dL Glucose 126 H (70-99) mg/dL Calcium 8.4 L (8.6-10.8) mg/dL Adrenal panel 07/14/16 Range/Units 04:55 Sodium 138 (136-145) mEq/L Potassium 4.1 (3.5-4.5) mEq/L Chloride 106 (98-109) mEq/L Carbon Dioxide 21 (19-29) mEq/L BUN 9 (8-26) mg/dL Creatinine 0.85 (0.72-1.25) mg/dL Glucose 126 H (70-99) mg/dL Calcium 8.4 L (8.6-10.8) mg/dL All other labs normal. - Imaging CT scan - abdomen: report reviewed, image reviewed CT scan - pelvis: report reviewed, image reviewed - Attending Attestation I examined this patient and my medical decision-making was reviewed with the POULTRY HELPER/PA/Advanced Practice Nurse/Resident Physician. I agree with the documented findings, disposition and treatment plan as described except to the extent set forth below.
[2016-07-13] MEDS ORDERED: *HR* Midazolam HCl 2 MG/2 ML VIAL ONE (14:31)
[2016-07-13] MEDS ORDERED: *HR* FentaNYL (PF) 100 MCG/2 ML VIAL ONE ×5 (14:31→17:42)
[2016-07-13] MEDS ORDERED: Lidocaine -MPF 2% 2 ML VIAL ONE (14:32)
[2016-07-13] MEDS ORDERED: *HR* Propofol 200 MG/20 ML VIAL IVP ONE ×2 (14:32→17:41)
[2016-07-13] MEDS ORDERED: *HR* Succinylcholine 200 MG/10 ML VIAL IVP ONE (14:32)
[2016-07-13] MEDS ORDERED: *HR* Rocuronium Bromide 50 MG/5 ML VIAL ONE (14:32)
[2016-07-13] MEDS ORDERED: Ondansetron 4 MG/2 ML VIAL IVP PRN (14:33)
[2016-07-13] MEDS ORDERED: *HR* HYDROmorphone (PF) 1 MG/ML SYRINGE IVP PRN ×2 (14:36→16:40)
--- NOTE | 2016-07-13 14:42 | Anesthesia Evaluation PreOp ---
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: Other (cervical stenosis) Other Medical History: Renal (kidney stones) Anesthesia History: No Prior Anesthetic Complications, Past Anesthesia ( cervical spinal fusion C4-6) Alcohol Use: occasionally Drug use: none Medications and Allergies Lisinopril/Hydrochlorothiazide [Zestoretic 20-25 mg Tablet] 1 each PO DAILY [History] Amlodipine [Norvasc] 5 mg PO DAILY 06/13/16 [History] Gabapentin [Neurontin] 300 mg PO BID 06/13/16 [History] HYDROcodone/Acet 5/325 mg [Gomer 5-325 mg] 1 tab PO TID 06/13/16 [History] [place]-3S/Dha/Epa/Fish Oil [Fish Oil 1,200 mg Softgel] 1 each PO DAILY 06/13/16 [ History] Psyllium Husk [Metamucil] 0.52 gm PO 2XW 06/13/16 [History] Amoxicillin/Clavulanate [Augmentin] 875 mg PO BIDWM #20 tablet 06/26/16 [Rx] Ciprofloxacin [Cipro] 500 mg PO BID #20 tablet 06/26/16 [Rx] Fluconazole [Diflucan] 100 mg PO DAILY #7 tablet 06/26/16 [Rx] OxyCODONE/APAP 10/325 [Percocet 10/325 MG] 1 each PO Q6HR PRN #52 tablet [Rx] Allergies has allergies Allergy (Uncoded 07/13/16 14:31) See Comments list unavailable-patient did not bring list - Meds/Allergy Pre-op Review Medications Reviewed: Yes Allergies Reviewed: Yes Beta Blockers on Current Med List: No Anesthesia Results - Labs 07/13/16 10:07 07/13/16 10:07 - Imaging EKG: report reviewed (06/15/2016 ST,) Anesthesia Exam Vital Signs/O2 Sat, Most Current Temp Pulse Resp BP Pulse Ox 98.4 F 107 16 190/120 105 07/13/16 09:20 07/13/16 14:02 07/13/16 14:02 07/13/16 14:02 07/13/16 14:02 Height: 5'8''/1.73 m Weight: 198 lbs/90 kg NPO (# of Hours): 8 Pain Scale: 9 Pain Scale Used: Numeric (1 - 10) - HEENT Pupil (Motor): EOMI Mallampati: III Teeth: Normal Denture Type: Upper: Complete Oral Opening: Greater than 3 - ASSEMBLER ARRANGER LOC: Oriented ASSEMBLER ARRANGER Motor: Normal RUE, Normal LUE, Normal RLE, Normal LLE, Normal Face ASSEMBLER ARRANGER Sensory: Normal: RLE, LLE, Face, Deficit: RUE, LUE - Cardiac Rhythm: Regular Murmur: None - Pulmonary Breath Sounds: bilateral Clear Respiratory Effort: Symmetrical Anesthesia Assess/Plan ASA Score: 2 Modified Ramos Scale for Level of Consciousness: Cooperative, oriented, and tranquil Anesthetic Plan: General Monitoring Plan: Standard Monitors Recovery Plan: PACU
[2016-07-13] MEDS ORDERED: 0.9 % Sodium Chloride 1,000 ML IVC SCH (14:45)
[2016-07-13] MEDS ORDERED: Acetaminophen IV 1,000 MG/100 ML INFUS..BTL IVPB SCH (14:45)
[2016-07-13] MEDS ORDERED: MetroNIDAZOLE 500 MG/100 ML 500 MG/100 ML BAG IVPB SCH (16:00)
[2016-07-13] MEDS ORDERED: Ipratropium/Albuterol Neb 3 ML IH SCH (16:00)
[2016-07-13] MEDS ORDERED: Piperacillin/Tazobactam 3.375 GM in D5% in Water (Mini-Bag+) 100 ML IVPB ONE ×2 (16:04→18:59)
[2016-07-13] MEDS ORDERED: Neostigmine Methylsulfate 3 MG/3 ML SYRINGE ONE (17:17)
[2016-07-13] MEDS ORDERED: *HR* Morphine 10 MG/ML VIAL ONE (17:37)
[2016-07-13] MEDS ORDERED: *HR* Metoprolol 5 MG/5 ML VIAL IVP SCH (18:00)
--- NOTE | 2016-07-13 18:02 | Operative Note ---
Date of procedure: 07/13/16 Pre-op diagnosis: Perforated sigmoid diverticulitis Post-op diagnosis: same Procedure: Exploratory laparotomy, sigmoid colectomy, colostomy Complications: none immediate Anesthesia: ROSARIO Surgeon: Loren Jeffrey Eeg Technician: Holly Carrillo Estimated blood loss (cc): 125 IV fluids (cc): 2,300 Urine output (cc): 200 Specimen: sigmoid colon, peritoneal fluid cultures Condition: stable Disposition: PACU Procedure in Detail: Patient was brought to the operating suite and placed supine on the operating table. Sign in was performed and everyone was in agreement. Anesthesia was induced and patient was endotracheally intubated by anesthesia without incident. Luz catheter was placed by the circulating nurse. The abdomen was shaved and then prepped and draped in the usual sterile fashion. Timeout was performed again everyone was in agreement. A midline incision through the skin and the subcutaneous tissue was made with a 15 blade. We dissected through the subcutaneous tissue to the anterior abdominal wall linea alba fascia with the Bovie. The abdomen was entered with the Bovie and the fascial incision extended. A Bookwalter was placed for retraction. Using gentle blunt dissection the sigmoid colon was dissected off the anterior abdominal wall and the right lateral abdominal wall and pelvis. The sigmoid was densely thick and there appeared to be infected purulent bloody drainage in the pelvis. Aerobic and anaerobic cultures were obtained. Palpation of the sigmoid revealed a very thick fibrotic inflamed sigmoid and an opening in the left lateral and right lateral mesentery just below this area was made with the Bovie. Using gentle blunt digital dissection a window was made posterior to the proximal rectum. A green contour stapler was used to transect the proximal rectum just below this area of inflammation. The left colon was retracted medially and using the Bovie the white line of Toldt was taken down from a proximal to distal direction. An area of the left colon just proximal to the inflammation was chosen for transection and a opening in the mesentery just beneath this was made with the Bovie. The left colon was transected with a linear GISELLA-75 stapler using a blue load. The mesentery of the sigmoid colon was taken down in a proximal to distal direction with the impact LigaSure and the specimen was placed off to the back table for pathology. The left colon was freed from the abdominal wall at the white line of Toldt with the Bovie and enough colon was mobilized to allow creation of the colostomy. The abdomen was irrigated with sterile saline. An incision in the right lower quadrant was made with a 15 blade and a 10 mm LAXMI drain was placed in the pelvis through the right lower quadrant abdominal incision with a tonsil. The LAXMI drain was secured to the skin with a 0 silk stitch. Kocur's were placed on the left fascia for retraction and the area above the umbilicus above the left lateral rectus was chosen for creation of the colostomy. A 2 cm circular incision through the skin and the subcutaneous tissue was made with a 15 blade and we dissected the subcutaneous fat in this area with the Bovie. A cruciate incision in the anterior rectus fascia was made with the Bovie. The rectus muscle fibers were in the direction of the muscle fibers with a Estelle and an opening in the posterior rectus fascia was made bluntly. The ostomy opening was gently bluntly dissection to accommodate 2+ finger widths. The left colon was then pulled through the newly created ostomy opening with a [place]. Kocur's were then placed on either side of the fascia for retraction in the midline fascia was reapproximated with 2 separate #1 nylon looped PDS running stitches meeting in the middle. The subcutaneous tissue the midline incision was copiously irrigated with sterile saline. The subcutaneous tissue was reapproximated with 3-0 Vicryl interrupted stitches. Skin was closed with tracy leaving an opening at the inferior margin of the incision for packing. We then turned our attention to creation of the colostomy. Babcocks were placed on the left colon staple line and the staple line was transected with heavy curved Metzenbaum scissors. There was bleeding from the cut colon edge. The colostomy was then created in a circular fashion using 3-0 Vicryl full- thickness colon to subcuticular tissue stitches. A colostomy appliance was placed. The inferior margin of the midline wound was packed with quarter inch iodoform packing, 4 x 4 gauze and Medipore tape were placed as a dressing. A drain sponge was placed at the LAXMI drain site. All lap and instrument counts were correct at end the case. Luz catheter remained with the patient. Patient was awoken in the operating suite and extubated by anesthesia without incident. Patient was taken to PACU in stable condition.
[2016-07-13] MEDS ORDERED: *HR* Metoprolol 5 MG/5 ML VIAL IVP ONE (18:05)
[2016-07-13] MEDS ORDERED: Ondansetron 4 MG/2 ML VIAL ONE (18:05)
--- NOTE | 2016-07-13 18:33 | Anesthesia Evaluation Post Op ---
Date of Encounter: 07/13/16 Time of Encounter: 18:40 - Vital Signs Vital Signs: Vital Signs/O2 Sat/Glucose, Most Current Temp Pulse Resp BP Pulse Ox 07/13/16 18:20 98 20 121/79 99 07/13/16 18:10 103 20 133/89 99 07/13/16 18:00 99 F 116 20 146/93 99 07/13/16 14:41 16 190/120 - Lungs Lungs: Clear Ascult./Percussion - Airway Airway: Non-obstructed - Cardiovascular Regular Rate - Mental Status Mental Status: Alert & Oriented, Answers Appropriately - Pain Pain Scale: 1 - Nausea Vomiting Nausea Vomiting: Not Present - Hydration Hydration: NPO - Discharge PostOp Status: Transfer Patient to floor
[2016-07-13] MEDS ORDERED: *HR* HYDROmorphone 20 MG/20 ML PCA IVC PRN (18:59)
[2016-07-13] MEDS ORDERED: Naloxone 0.4 MG/ML INJ IVP PRN (18:59)
[2016-07-13] MEDS ORDERED: *HR* Metoprolol 5 MG/5 ML VIAL IVP PRN (18:59)
[2016-07-13] MEDS ORDERED: *HR* Promethazine 25 MG/ML VIAL IVP PRN (18:59)
[2016-07-13] MEDS: Acetaminophen IV 1,000 MG/100 ML INFUS..BTL IVPB SCH (20:15)
[2016-07-13] MEDS: Ipratropium/Albuterol Neb 3 ML IH SCH (21:11)
[2016-07-14] MEDS ORDERED: *HR* Labetalol 20 MG/4 ML SYRINGE IVP ONE (01:35)
[2016-07-14] MEDS: Acetaminophen IV 1,000 MG/100 ML INFUS..BTL IVPB SCH ×4 (02:45→21:40)
[2016-07-14] MEDS: Ipratropium/Albuterol Neb 3 ML IH SCH ×4 (03:38→21:44)
[2016-07-14 05:51] LABS: Basophils # 0.1 K/mcL (0.0-0.2); Basophils % 0.4 %; Eosinophils # 0.1 K/mcL (0.0-0.6); Eosinophils % 0.4 %; Hematocrit 42.4 % (37.5-50.1); Immature Granulocytes % 0.6 % (0-4); Lymphocytes # 1.3 K/mcL (0.6-4.6); Lymphocytes % 7.5 %; Mean Corpuscular Hemoglobin 28.2 pg (28.0-33.3); Mean Corpuscular Volume 85.5 fL (83.0-100.0); Mean Platelet Volume 9.7 fL (9.4-12.4); Monocytes # 1.6 K/mcL (0.0-1.3); Monocytes % 9.3 %; Platelet Count 198 K/mcL (140-400); Red Blood Count 4.96 M/mcL (4.19-5.50); Red Cell Distribution Width 12.5 % (11.5-14.5); Segmented Neutrophils % 81.8 %
[2016-07-14 05:59] LABS: BUN/Creatinine Ratio 11 (6-26); Blood Urea Nitrogen 9 mg/dL (8-26); Calcium 8.4 mg/dL (8.6-10.8); Carbon Dioxide 21 mEq/L (19-29); Chloride 106 mEq/L (98-109); Glucose 126 mg/dL (70-99); Magnesium 1.5 mg/dL (1.6-2.6); Osmolality,Calculated 286 (280-300); Phosphorous 4.1 mg/dL (2.3-4.7); Potassium 4.1 mEq/L (3.5-4.5); Sodium 138 mEq/L (136-145); eGFR For African Americans > 60 (> 60); eGFR For Non-African Americans > 60 (> 60)
[2016-07-14] MEDS: 0.9 % Sodium Chloride 1,000 ML IVC SCH ×2 (06:33→15:41)
[2016-07-14] MEDS: Ondansetron 4 MG/2 ML VIAL IVP PRN (07:50)
[2016-07-14] MEDS: Pantoprazole 40 MG VIAL IVP SCH (07:51)
[2016-07-14] MEDS ORDERED: 0.9 % Sodium Chloride 500 ML IVC ONE (08:02)
[2016-07-14] MEDS ORDERED: Magnesium Sulfate 2 GM in D5% in Water 100 ML IVPB ONE (08:02)
[2016-07-14] MEDS ORDERED: *HR* HYDROmorphone (PF) 1 MG/ML SYRINGE IVP PRN (08:03)
[2016-07-14] MEDS ORDERED: Pantoprazole 40 MG VIAL IVP SCH (09:00)
--- NOTE | 2016-07-14 12:29 | Electrocardiograph Report ---
[address] [address] Test Date: 2016-07-14 Pat Name: Kenney Sanchez Department: 115 Room: 3A47 Gender: M Manager Investigations: MIKE : 1960 Requested By: Loren Jeffrey Order Number: [id number] Reading MD: Alex Crockett MD Measurements Intervals [place] Rate: 120 P: 44 OH: 137 QRS: 30 QRSD: 93 T: 10 QT: 317 QTc: 389 Interpretive Statements SINUS TACHYCARDIA Electronically Signed On 07-14-2016 12:28:26 EDT by Alex Crockett MD
--- NOTE | 2016-07-14 12:29 | Electrocardiograph Report ---
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
[2016-07-14] MEDS ORDERED: Dextrose Gel 15 GM PO PRN ×2 (13:02)
[2016-07-14] MEDS ORDERED: D5% in Water 1,000 ML IVC PRN (13:02)
[2016-07-14] MEDS ORDERED: *HR* Dextrose 50 % in Water (Syg) 50 ML SYRINGE IVP PRN (13:02)
--- NOTE | 2016-07-14 13:07 | General Surgery Progress Note ---
Date of Encounter: 07/14/16 Time of Encounter: 13:05 - Assessment and Plan (1) DVT prophylaxis Current Visit: No Status: Acute EPCD's start heparin SQ tomorrow pt already out of bed ambulating (2) Hypertension Current Visit: No Status: Chronic normotensive currently, monitor Qualifiers: Hypertension type: essential hypertension Qualified Code(s): I10 - Essential (primary) hypertension (3) Tobacco abuse Current Visit: No Status: Chronic (4) Perforation of sigmoid colon due to diverticulitis Current Visit: No Status: Acute pod 1 Jessica colostomy pink and viable, await return bowel function, no bowel sounds currently ok 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 Ambulate BID continue metz for strict I/os today EPCD gi prophylaxis (5) Leukocytosis Current Visit: No Status: Resolved continue Abx, peritoneal fluid cultures pending Qualifiers: Leukocytosis type: unspecified Qualified Code(s): D72.829 - Elevated white blood cell count, unspecified (6) Tachycardia Current Visit: No Status: Chronic likely due to pain control issues, having good uop, monitor check EKG Subjective Narrative: still having pain but is better controlled since increasing manager home dosing this morning no nausea no flatus out ostomy no fevers Objective Vital Signs - Last 8 Hours Temp Pulse Resp BP Pulse Ox 07/14/16 10:05 14 95 07/14/16 09:30 100.3 F H 120 14 110/79 94 07/14/16 07:15 98.4 F 124 22 131/95 93 Intake and Output 07/13/16 07/14/16 07/14/16 23:59 07:59 15:59 Intake Total 100 / 100 1200 / 1200 500 / 500 Output Total 445 / 445 825 / 825 Balance -345 / -345 375 / 375 500 / 500 Intake: IV Fluids 100 / 100 1200 / 1200 500 / 500 0.9 % Sodium Chloride 1, 1000 / 1000 000 ML @ 125 mls/hr IVC . Q8H [facility] Rx#:[id number] 0.9 % Sodium Chloride 500 500 / 500 ML @ 1875 mls/hr IVC . Q16M ONE Rx#:[id number] Ofirmev 1,000 mg In 100 100 / 100 100 / 100 ml @ 400 mls/hr IVPB Q6H [facility] Rx#:[id number] Zosyn 3.375 GM In 100 / 100 Dextrose 5% (Minibag+) 100 ML 100 ML @ 25 mls/hr IVPB ONCE ONE Rx#: [id number] Oral 0 / 0 Output: Urine 0 / 0 Estimated Blood Loss 125 / 125 Urine Amount (Catheter) 300 / 300 Catheter 775 / 775 Wound Drainage 20 / 20 50 / 50 Right Lower Abdomen 50 / 50 Other: Weight 89.9 kg Patient Weight 07/14/16 23:59 Weight 89.9 kg - General physical appearance well developed, well nourished, moderate distress, moderate pain - Eyes PERRL, normal ocular movement - ENT dry mucosa, atraumatic, normocephalic - Respiratory normal expansion, clear to auscultation - Cardiovascular Cardiovascular exam: Present: tachycardia, regular rhythm - Abdomen Abdomen: Present: soft, tender (appropriate post op tenderness). Absent: bowel sounds present Additional Comments: colostomy - edematous, pink, viable, bowel sweat, no flatus - Incision Incision: Present: clean and dry, intact, serosanguinous, open (at inferior midline and packed with 1/4" iodoform) - Genitourinary other (metz with clear yellow urine) - Integumentary no growths - Musculoskeletal normal posture - Psychiatric oriented to time, speech is normal - Labs 07/14/16 04:55 07/14/16 04:55 Short CBC 07/14/16 Range/Units 04:55 WBC 17.1 H (4.3-11.1) K/mcL Hgb 14.0 D (12.9-16.9) g/dL Hct 42.4 (37.5-50.1) % Plt Count 198 (140-400) K/mcL Neutrophils # 14.0 H (1.6-8.9) K/mcL BMP 07/14/16 Range/Units 04:55 Sodium 138 (136-145) mEq/L Potassium 4.1 (3.5-4.5) mEq/L Chloride 106 (98-109) mEq/L Carbon Dioxide 21 (19-29) mEq/L BUN 9 (8-26) mg/dL Creatinine 0.85 (0.72-1.25) mg/dL Glucose 126 H (70-99) mg/dL Calcium 8.4 L (8.6-10.8) mg/dL Vital Signs Temp Pulse Resp BP Pulse Ox 07/14/16 10:05 14 95 07/14/16 09:30 100.3 F H 120 14 110/79 94 07/14/16 07:15 98.4 F 124 22 131/95 93 07/14/16 04:41 98.7 F 128 14 107/76 96 07/14/16 03:40 16 97 07/14/16 00:57 98.6 F 128 14 116/80 97 07/13/16 22:26 98.8 F 117 16 112/82 99 07/13/16 21:31 97.9 F 119 16 108/77 99 07/13/16 21:14 20 100 07/13/16 20:06 98.0 F 104 16 132/87 99 07/13/16 19:30 98.2 F 112 14 133/91 99 07/13/16 18:50 98.5 F 104 16 141/91 100 07/13/16 18:40 99.4 F 98 18 135/85 99 07/13/16 18:30 99.4 F 102 18 140/79 99 07/13/16 18:20 98 20 121/79 99 07/13/16 18:10 103 20 133/89 99 07/13/16 18:00 99 F 116 20 146/93 99 07/13/16 14:41 16 190/120 07/13/16 14:02 107 16 190/120 105 07/13/16 13:30 104 16 168/111 97 Intake and Output 07/13/16 07/14/16 07/14/16 23:59 07:59 15:59 Intake Total 100 / 100 1200 / 1200 500 / 500 Output Total 445 / 445 825 / 825 Balance -345 / -345 375 / 375 500 / 500 Intake: IV Fluids 100 / 100 1200 / 1200 500 / 500 0.9 % Sodium Chloride 1, 1000 / 1000 000 ML @ 125 mls/hr IVC . Q8H [facility] Rx#:[id number] 0.9 % Sodium Chloride 500 500 / 500 ML @ 1875 mls/hr IVC . Q16M ONE Rx#:[id number] Ofirmev 1,000 mg In 100 100 / 100 100 / 100 ml @ 400 mls/hr IVPB Q6H [facility] Rx#:[id number] Zosyn 3.375 GM In 100 / 100 Dextrose 5% (Minibag+) 100 ML 100 ML @ 25 mls/hr IVPB ONCE ONE Rx#: [id number] Oral 0 / 0 Output: Urine 0 / 0 Estimated Blood Loss 125 / 125 Urine Amount (Catheter) 300 / 300 Catheter 775 / 775 Wound Drainage 20 / 20 50 / 50 Right Lower Abdomen 50 / 50 Other: Weight 89.9 kg Patient Weight 07/14/16 23:59 Weight 89.9 kg - VTE Documentation of Mechanical Device: Intermittent pneumatic compression device Consult Discharge Plan - Plan Referrals: Leslye Alves [Primary Care Provider] -
[2016-07-14] MEDS ORDERED: *HR* Metoprolol 5 MG/5 ML VIAL IVP PRN (14:20)
[2016-07-14] MEDS: Piperacillin/Tazobactam 3.375 GM in D5% in Water (Mini-Bag+) 100 ML IVPB SCH (15:43)
[2016-07-14] MEDS: *HR* HYDROmorphone 20 MG/20 ML PCA IVC PRN (15:59)
[2016-07-14] MEDS: *HR* Metoprolol 5 MG/5 ML VIAL IVP SCH (17:15)
[2016-07-14] MEDS: Insulin LISPRO 300 UNITS/3 ML VIAL SQ SCH (17:17)
[2016-07-15] MEDS: 0.9 % Sodium Chloride 1,000 ML IVC SCH (00:01)
[2016-07-15] MEDS: Piperacillin/Tazobactam 3.375 GM in D5% in Water (Mini-Bag+) 100 ML IVPB SCH ×3 (00:01→16:32)
[2016-07-15] MEDS: Insulin LISPRO 300 UNITS/3 ML VIAL SQ SCH ×4 (00:41→17:02)
[2016-07-15] MEDS: *HR* Metoprolol 5 MG/5 ML VIAL IVP SCH ×4 (00:42→17:09)
[2016-07-15] MEDS: Acetaminophen IV 1,000 MG/100 ML INFUS..BTL IVPB SCH ×3 (03:01→14:47)
[2016-07-15] MEDS: Ipratropium/Albuterol Neb 3 ML IH SCH ×4 (04:02→21:33)
[2016-07-15 06:38] LABS: Basophils % 0.2 %; Eosinophils # 0.1 K/mcL (0.0-0.6); Eosinophils % 0.6 %; Hematocrit 33.4 % (37.5-50.1); Immature Granulocytes % 0.6 % (0-4); Lymphocytes # 1.2 K/mcL (0.6-4.6); Lymphocytes % 6.2 %; Mean Corpuscular HGB Conc 34.4 g/dL (31.6-35.5); Mean Corpuscular Hemoglobin 29.4 pg (28.0-33.3); Mean Corpuscular Volume 85.4 fL (83.0-100.0); Mean Platelet Volume 10.4 fL (9.4-12.4); Monocytes # 1.5 K/mcL (0.0-1.3); Monocytes % 7.7 %; Neutrophils # 16.1 K/mcL (1.6-8.9); Platelet Count 147 K/mcL (140-400); Red Blood Count 3.91 M/mcL (4.19-5.50); Red Cell Distribution Width 12.8 % (11.5-14.5); Segmented Neutrophils % 84.7 %
[2016-07-15 06:40] LABS: Hemoglobin 11.5 g/dL (12.9-16.9)
[2016-07-15 06:55] LABS: BUN/Creatinine Ratio 10 (6-26); Blood Urea Nitrogen 6 mg/dL (8-26); Carbon Dioxide 22 mEq/L (19-29); Chloride 108 mEq/L (98-109); Glucose 123 mg/dL (70-99); Magnesium 1.4 mg/dL (1.6-2.6); Osmolality,Calculated 281 (280-300); Phosphorous 2.3 mg/dL (2.3-4.7); Potassium 3.6 mEq/L (3.5-4.5); Sodium 136 mEq/L (136-145); eGFR For African Americans > 60 (> 60); eGFR For Non-African Americans > 60 (> 60)
[2016-07-15] MEDS ORDERED: Magnesium Sulfate 2 GM in D5% in Water 100 ML IVPB ONE (07:57)
[2016-07-15] MEDS ORDERED: Ketorolac 30 MG/ML VIAL IVP ONE (08:51)
[2016-07-15] MEDS: Pantoprazole 40 MG VIAL IVP SCH (08:59)
[2016-07-15] MEDS: D5% in 0.45% NACL w KCl 20 MEQ/1,000 ML MLS IVC SCH ×2 (09:00→22:05)
--- NOTE | 2016-07-15 09:48 | General Surgery Progress Note ---
Date of Encounter: 07/15/16 Time of Encounter: 08:15 - Assessment and Plan (1) DVT prophylaxis Current Visit: No Status: Acute EPCD's/ heparin SQ tomorrow pt already out of bed ambulating (2) Hypertension Current Visit: No Status: Chronic normotensive currently, monitor Qualifiers: Hypertension type: essential hypertension Qualified Code(s): I10 - Essential (primary) hypertension (3) Tobacco abuse Current Visit: No Status: Chronic (4) Perforation of sigmoid colon due to diverticulitis Current Visit: No Status: Acute pod 2 Jessica colostomy pink and viable, edematous, await return flatus, has bowel sounds ok clears/coffee continue Abx - peritnoneal fluid culture with [employer]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 IV tylenol add scheduled toradol Ambulate BID continue metz for strict I/os today, remove Sat am EPCD gi prophylaxis change IVF to maintenance (5) Leukocytosis Current Visit: No Status: Resolved continue Abx- zosyn add diflucan peritoneal fluid cultures pending Qualifiers: Leukocytosis type: unspecified Qualified Code(s): D72.829 - Elevated white blood cell count, unspecified (6) Tachycardia Current Visit: No Status: Chronic likely due to pain control issues, having good uop, monitor (7) Anemia Current Visit: Yes Status: Acute likely dilutional, monitor check Hb 1300 today Qualifiers: Hemolytic anemia type: acquired, other Qualified Code(s): D59.8 - Other acquired hemolytic anemias (8) Hypomagnesemia Current Visit: Yes Status: Acute replaced, recheck in am Subjective Patient reports: still having pain, no flatus, no bowel movement, afebrile Narrative: complaining of pain more on right abdomen no nausea no flatus ambulating Objective Vital Signs - Last 8 Hours Temp Pulse Resp BP Pulse Ox 07/15/16 07:36 98.3 F 112 16 126/78 97 07/15/16 05:44 114 115/72 07/15/16 04:02 16 94 07/15/16 03:49 98.7 F 121 18 118/89 93 Intake and Output 07/14/16 07/15/16 07/15/16 23:59 07:59 15:59 Intake Total 1300 / 1300 200 / 200 1000 / 1000 Output Total 330 / 330 615 / 615 Balance 970 / 970 -415 / -415 1000 / 1000 Intake: IV Fluids 1300 / 1300 200 / 200 1000 / 1000 0.9 % Sodium Chloride 1, 1000 / 1000 1000 / 1000 000 ML @ 125 mls/hr IVC . Q8H [facility] Rx#:[id number] Ofirmev 1,000 mg In 100 200 / 200 100 / 100 ml @ 400 mls/hr IVPB Q6H [facility] Rx#:[id number] Zosyn 3.375 GM In 100 / 100 100 / 100 Dextrose 5% (Minibag+) 100 ML 100 ML @ 25 mls/hr IVPB Q8HR [facility] Rx#: [id number] Oral 0 / 0 0 / 0 Output: Stool 0 / 0 Catheter 300 / 300 600 / 600 Wound Drainage Right Lower Abdomen Other: Weight 98.8 kg Blood Glucose* 134 121 Patient Weight 07/15/16 23:59 Weight 98.8 kg - General physical appearance well developed, well nourished, moderate pain, obese - Eyes PERRL, normal ocular movement - ENT normal mucosa, normocephalic - Neck Neck exam: trachea midline - Respiratory normal expansion, clear to auscultation - Cardiovascular Cardiovascular exam: Present: tachycardia - Abdomen Abdomen: Present: bowel sounds present (minimal but present), soft, tender ( appropriate post op tenderness), guarding (voluntary). Absent: distended, rebound - Incision Incision: Present: clean and dry, intact, open (distal midline - serosang drainage) - Genitourinary other (metz with clear yellow urine) - Integumentary no rash, no growths - Neurologic CN 2-12 grossly intact, normal coordination - Musculoskeletal normal posture - Psychiatric oriented to time, oriented to person, oriented to place, speech is normal, memory intact - Additional Exam Short CBC 07/15/16 Range/Units 06:22 WBC 19.0 H (4.3-11.1) K/mcL Hgb 11.5 L D (12.9-16.9) g/dL Hct 33.4 L (37.5-50.1) % Plt Count 147 (140-400) K/mcL Neutrophils # 16.1 H (1.6-8.9) K/mcL BMP 07/15/16 Range/Units 06:22 Sodium 136 (136-145) mEq/L Potassium 3.6 (3.5-4.5) mEq/L Chloride 108 (98-109) mEq/L Carbon Dioxide 22 (19-29) mEq/L BUN 6 L (8-26) mg/dL Creatinine 0.62 L (0.72-1.25) mg/dL Glucose 123 H (70-99) mg/dL Calcium 8.0 L (8.6-10.8) mg/dL Vital Signs Temp Pulse Resp BP Pulse Ox 07/15/16 07:36 98.3 F 112 16 126/78 97 07/15/16 05:44 114 115/72 07/15/16 04:02 16 94 07/15/16 03:49 98.7 F 121 18 118/89 93 07/15/16 00:36 98.1 F 121 16 126/83 95 07/14/16 21:44 14 94 07/14/16 21:21 98.6 F 124 15 113/76 96 07/14/16 15:37 18 95 07/14/16 12:15 99.0 F 115 18 123/77 94 07/14/16 10:05 14 95 Intake and Output 07/14/16 07/15/16 07/15/16 23:59 07:59 15:59 Intake Total 1300 / 1300 200 / 200 1000 / 1000 Output Total 330 / 330 615 / 615 Balance 970 / 970 -415 / -415 1000 / 1000 Intake: IV Fluids 1300 / 1300 200 / 200 1000 / 1000 0.9 % Sodium Chloride 1, 1000 / 1000 1000 / 1000 000 ML @ 125 mls/hr IVC . Q8H [facility] Rx#:[id number] Ofirmev 1,000 mg In 100 200 / 200 100 / 100 ml @ 400 mls/hr IVPB Q6H [facility] Rx#:[id number] Zosyn 3.375 GM In 100 / 100 100 / 100 Dextrose 5% (Minibag+) 100 ML 100 ML @ 25 mls/hr IVPB Q8HR [facility] Rx#: [id number] Oral 0 / 0 0 / 0 Output: Stool 0 / 0 Catheter 300 / 300 600 / 600 Wound Drainage Right Lower Abdomen Other: Weight 98.8 kg Blood Glucose* 134 121 Patient Weight 07/15/16 23:59 Weight 98.8 kg - Labs 07/15/16 06:22 07/15/16 06:22 Diabetes panel 07/15/16 Range/Units 06:22 Sodium 136 (136-145) mEq/L Potassium 3.6 (3.5-4.5) mEq/L Chloride 108 (98-109) mEq/L Carbon Dioxide 22 (19-29) mEq/L BUN 6 L (8-26) mg/dL Creatinine 0.62 L (0.72-1.25) mg/dL Glucose 123 H (70-99) mg/dL Calcium 8.0 L (8.6-10.8) mg/dL Calcium panel 07/15/16 Range/Units 06:22 Calcium 8.0 L (8.6-10.8) mg/dL Phosphorus 2.3 (2.3-4.7) mg/dL Pituitary panel 07/15/16 Range/Units 06:22 Sodium 136 (136-145) mEq/L Potassium 3.6 (3.5-4.5) mEq/L Chloride 108 (98-109) mEq/L Carbon Dioxide 22 (19-29) mEq/L BUN 6 L (8-26) mg/dL Creatinine 0.62 L (0.72-1.25) mg/dL Glucose 123 H (70-99) mg/dL Calcium 8.0 L (8.6-10.8) mg/dL Adrenal panel 07/15/16 Range/Units 06:22 Sodium 136 (136-145) mEq/L Potassium 3.6 (3.5-4.5) mEq/L Chloride 108 (98-109) mEq/L Carbon Dioxide 22 (19-29) mEq/L BUN 6 L (8-26) mg/dL Creatinine 0.62 L (0.72-1.25) mg/dL Glucose 123 H (70-99) mg/dL Calcium 8.0 L (8.6-10.8) mg/dL - VTE Documentation of Mechanical Device: Intermittent pneumatic compression device Consult Discharge Plan - Plan Referrals: Leslye Alves [Primary Care Provider] -
[2016-07-15] MEDS: *HR* HYDROmorphone 20 MG/20 ML PCA IVC PRN (10:35)
[2016-07-15] MEDS: Fluconazole 200 MG/100 ML 200 MG/100 ML BAG IVPB SCH (11:13)
[2016-07-15] MEDS: Ketorolac 30 MG/ML VIAL IVP SCH ×2 (11:15→17:09)
[2016-07-15 13:04] LABS: Hemoglobin 11.7 g/dL (12.9-16.9)
[2016-07-15] MEDS: Acetylcysteine 10% 2 ML INHSOL IH SCH ×3 (15:36→21:33)
[2016-07-15] MEDS: *HR* Heparin 5,000 UNIT/ML VIAL SQ SCH (17:10)
[2016-07-16] MEDS: Insulin LISPRO 300 UNITS/3 ML VIAL SQ SCH ×4 (00:08→18:40)
[2016-07-16] MEDS: Ketorolac 30 MG/ML VIAL IVP SCH ×4 (00:10→16:52)
[2016-07-16] MEDS: *HR* Metoprolol 5 MG/5 ML VIAL IVP SCH ×4 (00:13→16:52)
[2016-07-16] MEDS: Piperacillin/Tazobactam 3.375 GM in D5% in Water (Mini-Bag+) 100 ML IVPB SCH ×3 (00:14→16:51)
[2016-07-16] MEDS: Ipratropium/Albuterol Neb 3 ML IH SCH ×4 (04:20→21:00)
[2016-07-16] MEDS: *HR* HYDROmorphone 20 MG/20 ML PCA IVC PRN (04:20)
[2016-07-16] MEDS: Acetylcysteine 10% 2 ML INHSOL IH SCH ×4 (04:20→21:00)
[2016-07-16 04:34] LABS: Basophils # 0.1 K/mcL (0.0-0.2); Basophils % 0.4 %; Eosinophils # 0.5 K/mcL (0.0-0.6); Eosinophils % 4.6 %; Hematocrit 30.4 % (37.5-50.1); Hemoglobin 10.4 g/dL (12.9-16.9); Immature Granulocytes % 0.6 % (0-4); Lymphocytes # 1.4 K/mcL (0.6-4.6); Lymphocytes % 11.9 %; Mean Corpuscular HGB Conc 34.2 g/dL (31.6-35.5); Mean Corpuscular Hemoglobin 29.4 pg (28.0-33.3); Mean Corpuscular Volume 85.9 fL (83.0-100.0); Mean Platelet Volume 10.4 fL (9.4-12.4); Monocytes # 0.9 K/mcL (0.0-1.3); Monocytes % 7.6 %; Neutrophils # 8.7 K/mcL (1.6-8.9); Platelet Count 155 K/mcL (140-400); Red Blood Count 3.54 M/mcL (4.19-5.50); Red Cell Distribution Width 12.7 % (11.5-14.5); Segmented Neutrophils % 74.9 %
[2016-07-16 05:02] LABS: BUN/Creatinine Ratio 6 (6-26); Calcium 8.2 mg/dL (8.6-10.8); Carbon Dioxide 25 mEq/L (19-29); Chloride 105 mEq/L (98-109); Glucose 124 mg/dL (70-99); Magnesium 1.5 mg/dL (1.6-2.6); Osmolality,Calculated 282 (280-300); Potassium 3.6 mEq/L (3.5-4.5); Sodium 137 mEq/L (136-145); eGFR For African Americans > 60 (> 60); eGFR For Non-African Americans > 60 (> 60)
[2016-07-16 05:04] LABS: Blood Urea Nitrogen 4 mg/dL (8-26)
[2016-07-16] MEDS: *HR* Heparin 5,000 UNIT/ML VIAL SQ SCH ×2 (06:25→16:52)
[2016-07-16] MEDS: Fluconazole 200 MG/100 ML 200 MG/100 ML BAG IVPB SCH (08:34)
[2016-07-16] MEDS: Pantoprazole 40 MG VIAL IVP SCH (08:34)
[2016-07-16] MEDS: D5% in 0.45% NACL w KCl 20 MEQ/1,000 ML MLS IVC SCH ×2 (08:42→21:01)
--- NOTE | 2016-07-16 11:03 | General Surgery Progress Note ---
Date of Encounter: 07/16/16 Time of Encounter: 11:01 - Assessment and Plan (1) Perforated diverticulum Current Visit: No Status: Acute Pt will need to be more active. I will add ambulation orders. If he becomes more distended or nauseated, he may require an NG. Subjective Patient reports: no new complaints, no flatus Objective Vital Signs - Last 8 Hours Temp Pulse Resp BP Pulse Ox 07/16/16 08:49 98 07/16/16 07:54 97.7 F 76 12 143/88 98 07/16/16 04:20 17 98 07/16/16 03:55 98.0 F 100 18 123/83 93 Intake and Output 07/15/16 07/16/16 07/16/16 23:59 07:59 15:59 Intake Total 404 / 404 600 / 600 1720 / 1720 Output Total 970 / 970 1410 / 1410 Balance -566 / -566 -810 / -810 1720 / 1720 Intake: IV Fluids 404 / 404 100 / 100 1000 / 1000 KCl 20mEq IN D5%-0.45 404 / 404 1000 / 1000 NACL 20 meq In 1,000 ml @ 100 mls/hr IVC .Q10H [facility] Rx#:[id number] Zosyn 3.375 GM In 100 / 100 Dextrose 5% (Minibag+) 100 ML 100 ML @ 25 mls/hr IVPB Q8HR [facility] Rx#: [id number] Oral 0 / 0 500 / 500 720 / 720 Output: Urine 950 / 950 1400 / 1400 Wound Drainage 10 / 10 Right Lower Abdomen 10 / 10 Other: Meal Breakfast Weight 99.1 kg Blood Glucose* 105 170 Patient Weight 07/16/16 23:59 Weight 99.1 kg - General physical appearance well developed, well nourished, no distress - Eyes PERRL - Abdomen Abdomen: Present: soft, distended Abdominal Tenderness: diffusely - Incision Incision: Present: clean and dry - Labs 07/16/16 04:13 07/16/16 04:13 Diabetes panel 07/16/16 Range/Units 04:13 Sodium 137 (136-145) mEq/L Potassium 3.6 (3.5-4.5) mEq/L Chloride 105 (98-109) mEq/L Carbon Dioxide 25 (19-29) mEq/L BUN 4 L (8-26) mg/dL Creatinine 0.65 L (0.72-1.25) mg/dL Glucose 124 H (70-99) mg/dL Calcium 8.2 L (8.6-10.8) mg/dL Calcium panel 07/16/16 Range/Units 04:13 Calcium 8.2 L (8.6-10.8) mg/dL Pituitary panel 07/16/16 Range/Units 04:13 Sodium 137 (136-145) mEq/L Potassium 3.6 (3.5-4.5) mEq/L Chloride 105 (98-109) mEq/L Carbon Dioxide 25 (19-29) mEq/L BUN 4 L (8-26) mg/dL Creatinine 0.65 L (0.72-1.25) mg/dL Glucose 124 H (70-99) mg/dL Calcium 8.2 L (8.6-10.8) mg/dL Adrenal panel 07/16/16 Range/Units 04:13 Sodium 137 (136-145) mEq/L Potassium 3.6 (3.5-4.5) mEq/L Chloride 105 (98-109) mEq/L Carbon Dioxide 25 (19-29) mEq/L BUN 4 L (8-26) mg/dL Creatinine 0.65 L (0.72-1.25) mg/dL Glucose 124 H (70-99) mg/dL Calcium 8.2 L (8.6-10.8) mg/dL - VTE Documentation of Mechanical Device: Intermittent pneumatic compression device Consult Discharge Plan - Plan Referrals: Leslye Alves [Primary Care Provider] -
[2016-07-17] MEDS: *HR* HYDROmorphone 20 MG/20 ML PCA IVC PRN ×2 (00:10→17:31)
[2016-07-17] MEDS: Insulin LISPRO 300 UNITS/3 ML VIAL SQ SCH ×4 (00:18→18:58)
[2016-07-17] MEDS: *HR* Metoprolol 5 MG/5 ML VIAL IVP SCH ×4 (00:19→17:05)
[2016-07-17] MEDS: Ketorolac 30 MG/ML VIAL IVP SCH ×4 (00:21→17:05)
[2016-07-17] MEDS: Piperacillin/Tazobactam 3.375 GM in D5% in Water (Mini-Bag+) 100 ML IVPB SCH ×3 (00:24→17:07)
[2016-07-17 03:41] LABS: Basophils % 0.5 %; Eosinophils # 0.7 K/mcL (0.0-0.6); Eosinophils % 8.4 %; Hematocrit 31.9 % (37.5-50.1); Hemoglobin 10.7 g/dL (12.9-16.9); Immature Granulocytes % 0.5 % (0-4); Lymphocytes # 1.3 K/mcL (0.6-4.6); Lymphocytes % 15.8 %; Mean Corpuscular HGB Conc 33.5 g/dL (31.6-35.5); Mean Corpuscular Hemoglobin 28.6 pg (28.0-33.3); Mean Corpuscular Volume 85.3 fL (83.0-100.0); Mean Platelet Volume 10.2 fL (9.4-12.4); Monocytes # 0.8 K/mcL (0.0-1.3); Monocytes % 9.8 %; Neutrophils # 5.4 K/mcL (1.6-8.9); Platelet Count 192 K/mcL (140-400); Red Blood Count 3.74 M/mcL (4.19-5.50); Red Cell Distribution Width 12.6 % (11.5-14.5)
[2016-07-17 03:51] LABS: BUN/Creatinine Ratio 3 (6-26); Blood Urea Nitrogen 2 mg/dL (8-26); Calcium 8.4 mg/dL (8.6-10.8); Carbon Dioxide 26 mEq/L (19-29); Chloride 108 mEq/L (98-109); Glucose 111 mg/dL (70-99); Magnesium 1.6 mg/dL (1.6-2.6); Osmolality,Calculated 289 (280-300); Potassium 3.9 mEq/L (3.5-4.5); Sodium 141 mEq/L (136-145); eGFR For African Americans > 60 (> 60); eGFR For Non-African Americans > 60 (> 60)
[2016-07-17] MEDS: Ipratropium/Albuterol Neb 3 ML IH SCH ×4 (04:52→21:17)
[2016-07-17] MEDS: Acetylcysteine 10% 2 ML INHSOL IH SCH ×4 (04:52→21:17)
[2016-07-17] MEDS: *HR* Heparin 5,000 UNIT/ML VIAL SQ SCH ×2 (05:22→17:05)
[2016-07-17] MEDS: Fluconazole 200 MG/100 ML 200 MG/100 ML BAG IVPB SCH (08:08)
[2016-07-17] MEDS: Pantoprazole 40 MG VIAL IVP SCH (08:08)
[2016-07-17] MEDS: D5% in 0.45% NACL w KCl 20 MEQ/1,000 ML MLS IVC SCH ×2 (08:09→17:06)
--- NOTE | 2016-07-17 12:45 | General Surgery Progress Note ---
Date of Encounter: 07/17/16 Time of Encounter: 12:44 - Assessment and Plan (1) Perforated diverticulum Current Visit: No Status: Acute Pt will need to be more active. I will add ambulation orders. If he becomes more distended or nauseated, he may require an NG. Subjective Patient reports: no new complaints, feels better (Patient reports feeling better today than he has in several weeks.) Objective Vital Signs - Last 8 Hours Temp Pulse Resp BP Pulse Ox 07/17/16 11:16 16 98 07/17/16 07:17 98 F 81 13 137/86 98 07/17/16 04:52 18 99 Intake and Output 07/16/16 07/17/16 07/17/16 23:59 07:59 15:59 Intake Total 1440 / 1440 100 / 100 1000 / 1000 Output Total 2250 / 2250 1835 / 1835 Balance -810 / -810 -1735 / -1735 1000 / 1000 Intake: IV Fluids 1200 / 1200 100 / 100 1000 / 1000 KCl 20mEq IN D5%-0.45 1000 / 1000 1000 / 1000 NACL 20 meq In 1,000 ml @ 100 mls/hr IVC .Q10H [facility] Rx#:[id number] Diflucan 200 MG/100 ML 100 / 100 200 mg In 100 ml @ 100 mls/hr IVPB DAILY [facility] Rx# :[id number] Zosyn 3.375 GM In 100 / 100 100 / 100 Dextrose 5% (Minibag+) 100 ML 100 ML @ 25 mls/hr IVPB Q8HR [facility] Rx#: [id number] Oral 240 / 240 0 / 0 Output: Urine 2250 / 2250 1825 / 1825 Wound Drainage 0 / 0 10 / 10 Right Lower Abdomen 0 / 0 10 / 10 Other: Meal Dinner NPO # Voids 2 Weight 99.1 kg Blood Glucose* 115 Patient Weight 07/17/16 23:59 Weight 99.1 kg - General physical appearance well developed, no distress - Abdomen Abdomen: Present: bowel sounds present, soft (Patient has some air in his colostomy bag) - Integumentary no abnormal pigmentation - Labs 07/17/16 02:58 07/17/16 02:58 Diabetes panel 07/17/16 Range/Units 02:58 Sodium 141 (136-145) mEq/L Potassium 3.9 (3.5-4.5) mEq/L Chloride 108 (98-109) mEq/L Carbon Dioxide 26 (19-29) mEq/L BUN 2 L (8-26) mg/dL Creatinine 0.64 L (0.72-1.25) mg/dL Glucose 111 H (70-99) mg/dL Calcium 8.4 L (8.6-10.8) mg/dL Calcium panel 07/17/16 Range/Units 02:58 Calcium 8.4 L (8.6-10.8) mg/dL Pituitary panel 07/17/16 Range/Units 02:58 Sodium 141 (136-145) mEq/L Potassium 3.9 (3.5-4.5) mEq/L Chloride 108 (98-109) mEq/L Carbon Dioxide 26 (19-29) mEq/L BUN 2 L (8-26) mg/dL Creatinine 0.64 L (0.72-1.25) mg/dL Glucose 111 H (70-99) mg/dL Calcium 8.4 L (8.6-10.8) mg/dL Adrenal panel 07/17/16 Range/Units 02:58 Sodium 141 (136-145) mEq/L Potassium 3.9 (3.5-4.5) mEq/L Chloride 108 (98-109) mEq/L Carbon Dioxide 26 (19-29) mEq/L BUN 2 L (8-26) mg/dL Creatinine 0.64 L (0.72-1.25) mg/dL Glucose 111 H (70-99) mg/dL Calcium 8.4 L (8.6-10.8) mg/dL - VTE Documentation of Mechanical Device: Intermittent pneumatic compression device Consult Discharge Plan - Plan Referrals: Leslye Alves [Primary Care Provider] -
[2016-07-18] MEDS: Piperacillin/Tazobactam 3.375 GM in D5% in Water (Mini-Bag+) 100 ML IVPB SCH ×4 (00:01→22:54)
[2016-07-18] MEDS: Ketorolac 30 MG/ML VIAL IVP SCH ×3 (00:01→11:28)
[2016-07-18] MEDS: *HR* Metoprolol 5 MG/5 ML VIAL IVP SCH ×3 (00:02→11:28)
[2016-07-18] MEDS: Insulin LISPRO 300 UNITS/3 ML VIAL SQ SCH ×4 (00:02→17:59)
[2016-07-18] MEDS: Ipratropium/Albuterol Neb 3 ML IH SCH ×4 (03:48→22:42)
[2016-07-18] MEDS: Acetylcysteine 10% 2 ML INHSOL IH SCH ×2 (03:48→10:41)
[2016-07-18 04:59] LABS: Basophils # 0.1 K/mcL (0.0-0.2); Basophils % 0.6 %; Eosinophils # 0.7 K/mcL (0.0-0.6); Eosinophils % 8.3 %; Hematocrit 35.6 % (37.5-50.1); Hemoglobin 12.1 g/dL (12.9-16.9); Immature Granulocytes % 0.5 % (0-4); Lymphocytes # 1.5 K/mcL (0.6-4.6); Lymphocytes % 18.1 %; Mean Corpuscular Hemoglobin 29.1 pg (28.0-33.3); Mean Corpuscular Volume 85.6 fL (83.0-100.0); Mean Platelet Volume 9.9 fL (9.4-12.4); Monocytes # 0.6 K/mcL (0.0-1.3); Monocytes % 7.3 %; Neutrophils # 5.4 K/mcL (1.6-8.9); Platelet Count 260 K/mcL (140-400); Red Blood Count 4.16 M/mcL (4.19-5.50); Red Cell Distribution Width 12.5 % (11.5-14.5); Segmented Neutrophils % 65.2 %
[2016-07-18 05:16] LABS: BUN/Creatinine Ratio 3 (6-26); Calcium 9.3 mg/dL (8.6-10.8); Carbon Dioxide 26 mEq/L (19-29); Chloride 103 mEq/L (98-109); Glucose 102 mg/dL (70-99); Magnesium 1.6 mg/dL (1.6-2.6); Osmolality,Calculated 286 (280-300); Potassium 3.6 mEq/L (3.5-4.5); Sodium 140 mEq/L (136-145); eGFR For African Americans > 60 (> 60); eGFR For Non-African Americans > 60 (> 60)
[2016-07-18 05:24] LABS: Blood Urea Nitrogen 2 mg/dL (8-26)
[2016-07-18] MEDS: *HR* Heparin 5,000 UNIT/ML VIAL SQ SCH ×2 (05:35→17:30)
[2016-07-18] MEDS: D5% in 0.45% NACL w KCl 20 MEQ/1,000 ML MLS IVC SCH (05:36)
[2016-07-18] MEDS: Pantoprazole 40 MG VIAL IVP SCH (10:03)
[2016-07-18] MEDS: Fluconazole 200 MG/100 ML 200 MG/100 ML BAG IVPB SCH (10:04)
[2016-07-18] MEDS: *HR* HYDROmorphone 20 MG/20 ML PCA IVC PRN (11:06)
[2016-07-18] MEDS ORDERED: *HR* OxyCODONE/APAP 10/325 TABLET PO PRN (12:08)
[2016-07-18] MEDS ORDERED: *HR* HYDROmorphone (PF) 1 MG/ML SYRINGE IVP PRN (12:09)
--- NOTE | 2016-07-18 13:56 | General Surgery Progress Note ---
Date of Encounter: 07/18/16 Time of Encounter: 10:05 - Assessment and Plan (1) DVT prophylaxis Current Visit: No Status: Acute EPCD's/ heparin SQ tomorrow pt already out of bed ambulating (2) Hypertension Current Visit: No Status: Chronic start home norvasc minimally hypertensive currently, monitor and prn beta lucía Qualifiers: Hypertension type: essential hypertension Qualified Code(s): I10 - Essential (primary) hypertension (3) Tobacco abuse Current Visit: No Status: Chronic (4) Perforation of sigmoid colon due to diverticulitis Current Visit: No Status: Acute s/p Jessica colostomy pink and viable, edematous, await return flatus, has bowel sounds, some flatus and little liquid stool oo regular diet continue Abx - 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 Ambulating well flomax for hesitency EPCD gi prophylaxis SLIV colostomy care and teaching (5) Leukocytosis Current Visit: No Status: Resolved continue Abx- zosyn resolved, treat for total 7-10 days Qualifiers: Leukocytosis type: unspecified Qualified Code(s): D72.829 - Elevated white blood cell count, unspecified Subjective Patient reports: still having pain, pain is less, flatus, no bowel movement, afebrile Narrative: tolerating fulls passing "bubbles" from colostomy, and only liquid stool ambulating well c/o penile/scrotal swelling Objective Vital Signs - Last 8 Hours Temp Pulse Resp BP Pulse Ox 07/18/16 11:06 97.8 F 92 18 139/90 100 07/18/16 08:17 97.7 F 72 18 168/73 100 Intake and Output 07/17/16 07/18/16 07/18/16 23:59 07:59 15:59 Intake Total 1540 / 1540 1010 / 1010 1190 / 1190 Output Total 2475 / 2475 850 / 850 Balance -935 / -935 995 / 995 340 / 340 Intake: IV Fluids 1300 / 1300 1010 / 1010 90 / 90 KCl 20mEq IN D5%-0.45 1000 / 1000 1000 / 1000 NACL 20 meq In 1,000 ml @ 100 mls/hr IVC .Q10H [facility] Rx#:[id number] Diflucan 200 MG/100 ML 100 / 100 200 mg In 100 ml @ 100 mls/hr IVPB DAILY [facility] Rx# :[id number] Zosyn 3.375 GM In 200 / 200 10 / 10 90 / 90 Dextrose 5% (Minibag+) 100 ML 100 ML @ 25 mls/hr IVPB Q8HR [facility] Rx#: [id number] Oral 240 / 240 0 / 0 1100 / 1100 Output: Urine 2475 / 2475 0 / 0 850 / 850 Wound Drainage 0 / 0 15 / 15 0 / 0 Right Lower Abdomen 0 / 0 15 / 15 0 / 0 Other: Meal Dinner Breakfast Percent of Meal Consumed 100% 100% # Voids 1 Blood Glucose* 109 111 100 - General physical appearance well developed, well nourished, no distress, obese - Eyes PERRL, normal ocular movement - ENT normal mucosa, atraumatic, normocephalic - Neck Neck exam: trachea midline - Respiratory normal expansion, normal respiratory effort - Cardiovascular Cardiovascular exam: Present: RRR - Abdomen Abdomen: Present: bowel sounds present, soft, distended, tender (appropriate post op tenderness) - Incision Incision: Present: clean and dry, intact, serous (drainage on bandage), open ( midline inferior- packed) - Genitourinary other (swollen penis and testicles) - Integumentary no rash, no growths - Neurologic CN 2-12 grossly intact - Musculoskeletal normal posture - Psychiatric oriented to time - Labs 07/18/16 04:47 07/18/16 04:47 Short CBC 07/18/16 Range/Units 04:47 WBC 8.3 (4.3-11.1) K/mcL Hgb 12.1 L (12.9-16.9) g/dL Hct 35.6 L (37.5-50.1) % Plt Count 260 (140-400) K/mcL Neutrophils # 5.4 (1.6-8.9) K/mcL BMP 07/18/16 Range/Units 04:47 Sodium 140 (136-145) mEq/L Potassium 3.6 (3.5-4.5) mEq/L Chloride 103 (98-109) mEq/L Carbon Dioxide 26 (19-29) mEq/L BUN 2 L (8-26) mg/dL Creatinine 0.72 (0.72-1.25) mg/dL Glucose 102 H (70-99) mg/dL Calcium 9.3 (8.6-10.8) mg/dL Vital Signs Temp Pulse Resp BP Pulse Ox 07/18/16 11:06 97.8 F 92 18 139/90 100 07/18/16 08:17 97.7 F 72 18 168/73 100 07/18/16 04:11 98.0 F 81 14 164/89 99 07/18/16 03:48 16 98 07/17/16 23:43 98.0 F 83 14 162/99 96 07/17/16 21:17 16 98 07/17/16 19:43 98.0 F 102 14 144/85 91 07/17/16 16:23 97.7 F 79 15 127/82 100 07/17/16 16:16 16 97 Intake and Output 07/17/16 07/18/16 07/18/16 23:59 07:59 15:59 Intake Total 1540 / 1540 1010 / 1010 1190 / 1190 Output Total 2475 / 2475 850 / 850 Balance -935 / -935 995 / 995 340 / 340 Intake: IV Fluids 1300 / 1300 1010 / 1010 90 / 90 KCl 20mEq IN D5%-0.45 1000 / 1000 1000 / 1000 NACL 20 meq In 1,000 ml @ 100 mls/hr IVC .Q10H [facility] Rx#:[id number] Diflucan 200 MG/100 ML 100 / 100 200 mg In 100 ml @ 100 mls/hr IVPB DAILY [facility] Rx# :[id number] Zosyn 3.375 GM In 200 / 200 10 / 10 90 / 90 Dextrose 5% (Minibag+) 100 ML 100 ML @ 25 mls/hr IVPB Q8HR [facility] Rx#: [id number] Oral 240 / 240 0 / 0 1100 / 1100 Output: Urine 2475 / 2475 0 / 0 850 / 850 Wound Drainage 0 / 0 15 / 15 0 / 0 Right Lower Abdomen 0 / 0 15 / 15 0 / 0 Other: Meal Dinner Breakfast Percent of Meal Consumed 100% 100% # Voids 1 Blood Glucose* 109 111 100 - VTE Documentation of Mechanical Device: Intermittent pneumatic compression device Consult Discharge Plan - Plan Referrals: Leslye Alves [Primary Care Provider] -
[2016-07-18] MEDS: amLODIPine 5 MG TABLET PO SCH (17:00)
[2016-07-19] MEDS: Insulin LISPRO 300 UNITS/3 ML VIAL SQ SCH ×3 (01:49→11:52)
[2016-07-19] MEDS: Ipratropium/Albuterol Neb 3 ML IH SCH ×4 (03:54→21:58)
[2016-07-19] MEDS: *HR* Heparin 5,000 UNIT/ML VIAL SQ SCH ×2 (05:43→17:17)
[2016-07-19] MEDS: Fluconazole 100 MG TABLET PO SCH (08:08)
[2016-07-19] MEDS: amLODIPine 5 MG TABLET PO SCH (08:08)
[2016-07-19] MEDS: Piperacillin/Tazobactam 3.375 GM in D5% in Water (Mini-Bag+) 100 ML IVPB SCH ×3 (08:11→23:20)
--- NOTE | 2016-07-19 10:51 | General Surgery Progress Note ---
Date of Encounter: 07/19/16 Time of Encounter: 15:40 - Assessment and Plan (1) Perforation of sigmoid colon due to diverticulitis Current Visit: No Status: Acute POD #6 Exploratory laparotomy, sigmoid colectomy, colostomy with Dr. Jeffrey Regular diet IV antibiotics- Zosyn Continue diflucan Supportive care/pain control- adjusted pain meds to PO dilaudid and added ibuprofen scheduled Ambulate hallways IS every 1 hour while awake Ostomy teaching Check labs now and in am GI prophylaxis (2) Hypertension Current Visit: No Status: Chronic normotensive Qualifiers: Hypertension type: essential hypertension Qualified Code(s): I10 - Essential (primary) hypertension (3) Tobacco abuse Current Visit: No Status: Chronic (4) DVT prophylaxis Current Visit: No Status: Acute Continue heparin 5,000 units SQ twice daily for DVT prophylaxis EPCDs to bilateral lower extremities for DVT prophylaxis Subjective Patient reports: still having pain (increased pain today uncontrolled with Percocet), tolerating a regular diet, voiding w/o difficulty, flatus, no bowel movement, afebrile Objective Vital Signs - Last 8 Hours Temp Pulse Resp BP Pulse Ox 07/19/16 06:54 98.2 F 100 16 125/83 97 07/19/16 04:21 97.6 F 110 16 106/70 99 07/19/16 03:54 20 94 Intake and Output 07/18/16 07/19/16 07/19/16 23:59 07:59 15:59 Intake Total 1040 / 1040 340 / 340 Output Total 820 / 820 1565 / 1565 Balance 220 / 220 -1225 / -1225 Intake: IV Fluids 100 / 100 100 / 100 Zosyn 3.375 GM In 100 / 100 100 / 100 Dextrose 5% (Minibag+) 100 ML 100 ML @ 25 mls/hr IVPB Q8HR [facility] Rx#: [id number] Oral 940 / 940 240 / 240 Output: Urine 800 / 800 1550 / 1550 Stool 0 / 0 Wound Drainage 20 20 15 / 15 Right Lower Abdomen 20 20 15 / 15 Other: Meal Dinner Percent of Meal Consumed 100% Weight 95.708 kg Blood Glucose* 128 Patient Weight 07/19/16 23:59 Weight 95.708 kg - General physical appearance well developed, well nourished, moderate distress, moderate pain - Eyes normal ocular movement - ENT normal mucosa, atraumatic, normocephalic - Neck Neck exam: trachea midline - Respiratory normal respiratory effort, clear to auscultation - Cardiovascular Cardiovascular exam: Present: tachycardia - Abdomen Abdomen: Present: bowel sounds present, soft, tender (expected post-operative tenderness), wound (Midline with packing at bottom of incision with small amount of serous drainage noted; LAXMI drain to bulb suction with serousang drainage noted (20ml noted since midnight)) Additional Comments: colostomy, pink, edematous - flatus and small amt liquid stool present - Incision Incision: Present: open (Midline incision with packing noted at bottom with small amount of serous drainage.) - Genitourinary other (scrotal and penile edema, mild) - Integumentary no growths - Neurologic CN 2-12 grossly intact - Musculoskeletal normal posture - Psychiatric oriented to time, oriented to person, oriented to place, speech is normal, memory intact - Labs 07/20/16 04:34 07/20/16 04:34 - VTE Documentation of Mechanical Device: Graduated compression elastic hosiery Consult Discharge Plan - Plan - Attending Attestation I examined this patient and my medical decision-making was reviewed with the DELI BAKERY CLERK/PA/Advanced Practice Nurse/Resident Physician. I agree with the documented findings, disposition and treatment plan as described except to the extent set forth below. I examined this patient and my medical decision-making was reviewed with the DELI BAKERY CLERK/PA/Advanced Practice Nurse/Resident Physician. I agree with the documented findings, disposition and treatment plan as described except to the extent set forth below.
[2016-07-19 11:14] LABS: Basophils % 0.5 %; Eosinophils # 0.4 K/mcL (0.0-0.6); Eosinophils % 4.9 %; Hematocrit 34.6 % (37.5-50.1); Hemoglobin 11.5 g/dL (12.9-16.9); Immature Granulocytes % 0.5 % (0-4); Lymphocytes # 1.4 K/mcL (0.6-4.6); Lymphocytes % 17.7 %; Mean Corpuscular HGB Conc 33.2 g/dL (31.6-35.5); Mean Corpuscular Hemoglobin 28.3 pg (28.0-33.3); Mean Corpuscular Volume 85.2 fL (83.0-100.0); Mean Platelet Volume 9.6 fL (9.4-12.4); Monocytes # 0.6 K/mcL (0.0-1.3); Monocytes % 7.6 %; Neutrophils # 5.4 K/mcL (1.6-8.9); Platelet Count 257 K/mcL (140-400); Red Blood Count 4.06 M/mcL (4.19-5.50); Red Cell Distribution Width 12.9 % (11.5-14.5); Segmented Neutrophils % 68.8 %
[2016-07-19 11:29] LABS: BUN/Creatinine Ratio 4 (6-26); Blood Urea Nitrogen 3 mg/dL (8-26); Calcium 9.1 mg/dL (8.6-10.8); Carbon Dioxide 27 mEq/L (19-29); Chloride 103 mEq/L (98-109); Glucose 131 mg/dL (70-99); Osmolality,Calculated 288 (280-300); Potassium 3.7 mEq/L (3.5-4.5); Sodium 140 mEq/L (136-145); eGFR For African Americans > 60 (> 60); eGFR For Non-African Americans > 60 (> 60)
[2016-07-19] MEDS: Ibuprofen 800 MG TABLET PO SCH ×2 (11:51→17:16)
[2016-07-19] MEDS: *HR* HYDROmorphone 2 MG TABLET PO PRN ×3 (14:20→23:19)
[2016-07-19] MEDS: Ondansetron 4 MG/2 ML VIAL IVP PRN (23:23)
[2016-07-20] MEDS: Ibuprofen 800 MG TABLET PO SCH ×3 (00:39→17:19)
[2016-07-20] MEDS: Ipratropium/Albuterol Neb 3 ML IH SCH ×3 (04:23→16:17)
[2016-07-20 05:48] LABS: Basophils % 0.5 %; Eosinophils # 0.4 K/mcL (0.0-0.6); Eosinophils % 5.1 %; Hematocrit 34.6 % (37.5-50.1); Hemoglobin 11.4 g/dL (12.9-16.9); Immature Granulocytes % 0.7 % (0-4); Lymphocytes # 1.8 K/mcL (0.6-4.6); Lymphocytes % 21.7 %; Mean Corpuscular HGB Conc 32.9 g/dL (31.6-35.5); Mean Corpuscular Hemoglobin 28.2 pg (28.0-33.3); Mean Corpuscular Volume 85.6 fL (83.0-100.0); Mean Platelet Volume 9.9 fL (9.4-12.4); Monocytes # 0.7 K/mcL (0.0-1.3); Monocytes % 8.7 %; Neutrophils # 5.3 K/mcL (1.6-8.9); Platelet Count 282 K/mcL (140-400); Red Blood Count 4.04 M/mcL (4.19-5.50); Red Cell Distribution Width 12.9 % (11.5-14.5); Segmented Neutrophils % 63.3 %
[2016-07-20 06:01] LABS: Calcium 9.2 mg/dL (8.6-10.8); Carbon Dioxide 26 mEq/L (19-29); Chloride 107 mEq/L (98-109); Glucose 108 mg/dL (70-99); Potassium 3.7 mEq/L (3.5-4.5); Sodium 143 mEq/L (136-145); eGFR For African Americans > 60 (> 60); eGFR For Non-African Americans > 60 (> 60)
[2016-07-20] MEDS: *HR* Heparin 5,000 UNIT/ML VIAL SQ SCH ×2 (06:02→17:20)
[2016-07-20] MEDS: *HR* HYDROmorphone 2 MG TABLET PO PRN ×2 (06:07→17:33)
[2016-07-20 06:22] LABS: BUN/Creatinine Ratio 5 (6-26); Osmolality,Calculated 293 (280-300)
[2016-07-20 06:23] LABS: Blood Urea Nitrogen 4 mg/dL (8-26)
[2016-07-20 07:15] VITALS: BP 124/81
[2016-07-20] MEDS: amLODIPine 5 MG TABLET PO SCH (09:59)
[2016-07-20] MEDS: Fluconazole 100 MG TABLET PO SCH (09:59)
[2016-07-20] MEDS: Piperacillin/Tazobactam 3.375 GM in D5% in Water (Mini-Bag+) 100 ML IVPB SCH ×2 (10:02→17:43)
--- NOTE | 2016-07-20 11:07 | Discharge Summary ---
Date of Encounter: 07/20/16 Time of Encounter: 11:00 - Discharge Diagnosis (1) Perforation of sigmoid colon due to diverticulitis Priority: Primary Status: Acute (2) Hypertension Priority: Secondary Status: Chronic Qualifiers: Hypertension type: essential hypertension Qualified Code(s): I10 - Essential (primary) hypertension (3) Tobacco abuse Priority: Secondary Status: Chronic (4) DVT prophylaxis Priority: Secondary Status: Acute - Discharge Medications Prescriptions: HYDROmorphone [Dilaudid] 2 mg PO Q4HR PRN #30 tablet PRN Reason: Pain Clindamycin [Cleocin] 300 mg PO Q8HR #12 capsule Ibuprofen [Motrin] 800 mg PO Q8HR #30 tablet Docusate [Colace] 100 mg PO BID #30 capsule Fluconazole [Diflucan] 200 mg PO DAILY #7 tablet MetroNIDAZOLE [Flagyl] 500 mg PO TID #18 tablet Tamsulosin [Flomax] 0.4 mg PO DAILY #30 capsule Home Medications: HYDROcodone/Acet 5/325 mg [[place] 5-325 mg] 1 tab PO TID PRN 06/13/16 [History] [place]-3S/Dha/Epa/Fish Oil [Fish Oil 1,200 mg Softgel] 1,200 mg PO DAILY [History] Psyllium Husk [Metamucil] 0.52 gm PO 2XW 06/13/16 [History] Amlodipine [Norvasc] 5 mg PO DAILY 07/14/16 [History] Lactose-Reduced Food [Ensure Liquid] 1 bottle PO TID 07/14/16 [History] Clindamycin [Cleocin] 300 mg PO Q8HR #12 capsule 07/20/16 [Rx] Docusate [Colace] 100 mg PO BID #30 capsule 07/20/16 [Rx] Fluconazole [Diflucan] 200 mg PO DAILY #7 tablet 07/20/16 [Rx] HYDROmorphone [Dilaudid] 2 mg PO Q4HR PRN #30 tablet 07/20/16 [Rx] Ibuprofen [Motrin] 800 mg PO Q8HR #30 tablet 07/20/16 [Rx] MetroNIDAZOLE [Flagyl] 500 mg PO TID #18 tablet 07/20/16 [Rx] Tamsulosin [Flomax] 0.4 mg PO DAILY #30 capsule 07/20/16 [Rx] Allergies/Adverse Reactions: Allergies atorvastatin [From Lipitor] Allergy (Verified 07/14/16 23:37) See Comments ezetimibe [From Vytorin] Allergy (Verified 07/14/16 23:37) See Comments gabapentin Allergy (Verified 07/14/16 23:37) See Comments lovastatin Allergy (Verified 07/14/16 23:37) See Comments niacin [From Niaspan Extended-Release] Allergy (Verified 07/14/16 23:37) See Comments simvastatin Allergy (Verified 07/14/16 23:37) See Comments General Surgery Exam Initial Vital Signs Temp Pulse Resp BP Pulse Ox 98.4 F 127 20 132/93 96 07/13/16 09:20 07/13/16 09:20 07/13/16 09:20 07/13/16 09:20 07/13/16 09:20 - General physical appearance well developed, well nourished, no distress, obese - Eyes PERRL, normal ocular movement - ENT normal mucosa, normocephalic - Neck trachea midline - Respiratory normal expansion, clear to auscultation - Cardiovascular Cardiovascular exam: Present: RRR, no murmurs/rubs/gallops - Abdomen Abdomen general surgery: Present: bowel sounds present, soft, tender ( appropriate post op tendernes) - Incision Incision: Present: clean and dry, intact, open (inferior - no erythema, serous drainage) - Integumentary Integumentary general surgery: Present: warm and dry, no abnormal pigmentation - Neurologic Present: CN 2-12 grossly intact - Musculoskeletal Present: normal gait, normal posture - Psychiatric Psychiatric general surgery: Present: A&Ox3, speech is normal Date of admission: 07/13/16 14:35 Primary care physician: Leslye Alves Consults: 07/13/16 14:38 Consult to Wound Care [CONS] Routine Reason for Consult: new colostomy Time Notified: 14:38 Call Completed: No Discharging clinician: Loren Jeffrey Anticipated date of discharge: 07/20/16 - Patient Status Disposition: Home Health Service Condition: Fair Overall status at discharge: patient is progressing back to baseline - Discharge Instructions Follow Up With: Leslye Alves [Primary Care Provider] - Elsa Jung, [facility] [Advanced Practice Nurse] - (1.5-2 weeks) Additional Instructions: wash midline incision with soap and water daily, pack inferior midline wound with 1/2" plain packing, cover with 4x4 gauze and medipore tape, change daily. Ok to keep folded 4x4 gauze and midipore tape over midline incision so tracy do not rub on clothes, change daily when changing colostomy, wash skin around ostomy site with soap and water, apply allkare skin protectant wipe to skin then apply ostomy appliance, change 1 -2 times per week and prn leakage no lifting more than 20 lbs for 6 weeks. no driving until after follow-up appt and cleared ok to shower, no tub baths or swimming pools - Diet and Activity Activity: increase activity as tolerated Diet: advance to your usual diet - Hospital Course Hospital course: Mr. Sanchez is a 56 year old male who presented with perforated sigmoid diverticulitis. He was previously admitted with diverticulitis within the last month. Patient had failed previous inpatient/outpatient therapy. He was taken to the OR for an uncomplicated Jessica procedure. Post-operatively once he started having bowel sounds he was started on clears and advanced as he could tolerate. He was given ostomy care/teaching. He had issues with urinary hesitency and was started on flomax. Pain was initially controlled with a yeast fermentation attendant and transitioned to po dilaudid. He was discharged home in stable condition. - Time Spent with Patient Total time spent providing and/or coordinating discharge services: Labs on day of discharge: Labs from last 24 hours 07/20/16 07/20/16 07/19/16 04:34 04:34 11:34 WBC 8.3 RBC 4.04 L Hgb 11.4 L Hct 34.6 L MCV 85.6 MCH 28.2 MCHC 32.9 RDW 12.9 Plt Count 282 MPV 9.9 Immature Gran % 0.7 Seg Neutrophils % 63.3 Lymphocytes % 21.7 Monocytes % 8.7 Eosinophils % 5.1 Basophils % 0.5 Neutrophils # 5.3 Lymphocytes # 1.8 Monocytes # 0.7 Eosinophils # 0.4 Basophils # 0.0 Sodium 143 Potassium 3.7 Chloride 107 Carbon Dioxide 26 BUN 4 L Creatinine 0.79 Est GFR ( Amer) > 60 Est GFR (Non-Af Amer) > 60 BUN/Creatinine Ratio 5 L Glucose 108 H POC Glucose 119 H Calculated Osmolality 293 Calcium 9.2 07/19/16 07/19/16 10:58 10:58 WBC 7.8 RBC 4.06 L Hgb 11.5 L Hct 34.6 L MCV 85.2 MCH 28.3 MCHC 33.2 RDW 12.9 Plt Count 257 MPV 9.6 Immature Gran % 0.5 Seg Neutrophils % 68.8 Lymphocytes % 17.7 Monocytes % 7.6 Eosinophils % 4.9 Basophils % 0.5 Neutrophils # 5.4 Lymphocytes # 1.4 Monocytes # 0.6 Eosinophils # 0.4 Basophils # 0.0 Sodium 140 Potassium 3.7 Chloride 103 Carbon Dioxide 27 BUN 3 L Creatinine 0.80 Est GFR ( Amer) > 60 Est GFR (Non-Af Amer) > 60 BUN/Creatinine Ratio 4 L Glucose 131 H POC Glucose Calculated Osmolality 288 Calcium 9.1
[2016-07-20] MEDS: Ondansetron 4 MG/2 ML VIAL IVP PRN ×2 (12:41→17:20)
--- NOTE | 2016-07-20 13:41 | Physician Discharge Referral ---
Home Health/Hosp Referral Info Transfer to: Home Health Attending Provider: Dr. Loren Jeffrey Provider in Charge Post Discharge: Other (PCP and Dr. Loren Jeffrey) - Diagnosis (1) Perforation of sigmoid colon due to diverticulitis Priority: Primary Status: Acute (2) Hypertension Priority: Secondary Status: Chronic (3) Hyperlipidemia Priority: Secondary Status: Chronic (4) Tobacco abuse Priority: Secondary Status: Chronic - Respiratory Orders None Smoking Cessation: Smoking cessation has been advised. For more information, call the [place] Tobacco Quit Line at 6-542-STNG-NOW. - Dressing/Wound Care Site: #1 Midline incision and #2 Colostomy Type of Dressing/Treatments w/Frequency: #1 wash midline incision with soap and water daily, pack inferior midline wound with 1/2" plain packing, cover with 4x4 gauze and medipore tape, change daily. Ok to keep folded 4x4 gauze and midipore tape over midline incision so tracy do not rub on clothes, change daily #2 when changing colostomy, wash skin around ostomy site with soap and water, apply allkare skin protectant wipe to skin then apply ostomy appliance, change 1 -2 times per week and prn leakage - Diet/Nutrition Diet/Nutrition Orders: Regular - Activity Activity Orders: Up ad ronnie, Ambulate, Chair Activity: List: no lifting more than 20 lbs for 6 weeks. no driving until after follow-up appt and cleared ok to shower, no tub baths or swimming pools - Services Needed Following services are medically necessary services: Nursing - Transfer Medications Prescriptions: HYDROmorphone [Dilaudid] 2 mg PO Q4HR PRN #30 tablet PRN Reason: Pain Clindamycin [Cleocin] 300 mg PO Q8HR #12 capsule Ibuprofen [Motrin] 800 mg PO Q8HR #30 tablet Docusate [Colace] 100 mg PO BID #30 capsule Fluconazole [Diflucan] 200 mg PO DAILY #7 tablet MetroNIDAZOLE [Flagyl] 500 mg PO TID #18 tablet Tamsulosin [Flomax] 0.4 mg PO DAILY #30 capsule Home Medications: HYDROcodone/Acet 5/325 mg [[place] 5-325 mg] 1 tab PO TID PRN 06/13/16 [History] [place]-3S/Dha/Epa/Fish Oil [Fish Oil 1,200 mg Softgel] 1,200 mg PO DAILY [History] Psyllium Husk [Metamucil] 0.52 gm PO 2XW 06/13/16 [History] Amlodipine [Norvasc] 5 mg PO DAILY 07/14/16 [History] Lactose-Reduced Food [Ensure Liquid] 1 bottle PO TID 07/14/16 [History] Clindamycin [Cleocin] 300 mg PO Q8HR #12 capsule 07/20/16 [Rx] Docusate [Colace] 100 mg PO BID #30 capsule 07/20/16 [Rx] Fluconazole [Diflucan] 200 mg PO DAILY #7 tablet 07/20/16 [Rx] HYDROmorphone [Dilaudid] 2 mg PO Q4HR PRN #30 tablet 07/20/16 [Rx] Ibuprofen [Motrin] 800 mg PO Q8HR #30 tablet 07/20/16 [Rx] MetroNIDAZOLE [Flagyl] 500 mg PO TID #18 tablet 07/20/16 [Rx] Tamsulosin [Flomax] 0.4 mg PO DAILY #30 capsule 07/20/16 [Rx] Allergies/Adverse Reactions: Allergies atorvastatin [From Lipitor] Allergy (Verified 07/14/16 23:37) See Comments ezetimibe [From Vytorin] Allergy (Verified 07/14/16 23:37) See Comments gabapentin Allergy (Verified 07/14/16 23:37) See Comments lovastatin Allergy (Verified 07/14/16 23:37) See Comments niacin [From Niaspan Extended-Release] Allergy (Verified 07/14/16 23:37) See Comments simvastatin Allergy (Verified 07/14/16 23:37) See Comments Certification: Further, I certify that my clinical findings support that this patient is homebound (i.e. absences from home require considerable and taxing effort and are for medical reasons or jain services or infrequently or short duration when for other reasons) because: Homebound Reason: Patient requires assistance of a person or device to safely leave home, Leaving home requires considerable and taxing effort due to condition Attestation: My signature below is to certify that this patient is under my care and that I, or nurse practitioner, or a physician's teaching assistant working with me, has a face-to -face encounter with this patient.
== END 2016-07-20 19:37 | disposition home health service (06) | DRG 330 ==
LOC: 3ANU 09:12 → EMEROO 09:12 → 3ANU 14:45
PROVIDERS: ADMIT Surgery; ATTEND Surgery